=== PATIENT | male | born 1945 | race Caucasian/White ===

== ENCOUNTER 2017-09-19 11:13 | Observation (INO) | payer BC, MEDICARE, SELFPAY ==
[2017-09-19] VITALS (11 sets, daily range): BP systolic 134–183; BP diastolic 67–89; PULSE 71–99; RESP 16–19; TEMP 36.7–37.9; O2SAT 92–96; BMI 24.5; BMI 24.0; BMI 24.6
--- NOTE | 2017-09-19 11:31 | NURSING ---
NO OLD EKGS
--- NOTE | 2017-09-19 11:34 | CT_ITS ---
STUDY: CT BRAIN WITHOUT CONTRAST REASON FOR EXAM: Male, 72 years old. Syncope. Seizure like activity RADIATION DOSAGE (If Supplied By Facility): CTDIvol = ( 44.99 ) mGy, DLP = ( 779.24 ) mGycm TECHNIQUE: Transaxial CT imaging of the brain was performed without administration of intravenous contrast material. Individualized dose optimization techniques were used for this CT. COMPARISON: None. FINDINGS: Normal soft tissue structures. Normal calvarium. Normal size ventricles and extra-axial spaces for the patient's age. Normal white matter tracts of the cerebral hemispheres. Normal basal ganglia and thalami. Normal brainstem. Normal cerebellum. There is no intracranial hemorrhage. There are no findings of an acute ischemic infarction. Normal visualized paranasal sinuses. CT/Brain/Head without Contrast IMPRESSION: Normal unenhanced CT scan of the brain. Electronically Signed: Rashawn Mae MD at 12:26 EST , Service support ,
--- NOTE | 2017-09-19 11:34 | EKG12_ITS ---
Test Reason : SYNCOPE Blood Pressure : / mmHG Vent. Rate : 071 BPM Atrial Rate : 071 BPM P-R Int : 160 ms QRS Dur : 118 ms QT Int : 430 ms P-R-T Axes : 064 -67 009 degrees QTc Int : 467 ms Normal sinus rhythm Left anterior fascicular block Abnormal ECG Confirmed by MOO POWERS, GEM ([id number]), greeting card editor MARIBEL TYSON ([id number] on 09/22/2017 8:38:38 AM Referred By: Confirmed By:GEM CORTÉS MD
[2017-09-19 11:51] LABS: Absolute Lymphocyte Count 2.02 X10^3/ul (0.83-4.51); Absolute Neutrophil Count 5.6 X10^3/uL (2.0-7.7); Basophil# 0.03 X10^3/uL; Basophil% 0.3 % (0-1); Eosinophil# 0.05 X10^3/uL; Eosinophils% 0.6 % (0-5); Hematocrit 47.1 % (40-54); Hemoglobin 16.3 g/dl (13.0-16.5); Lymphocyte # 2.02 X10^3/ul (4.0); Lymphocyte % 22.3 % (19-41); Mean Corp Hgb Conc 34.6 g/gl (32-36); Mean Corpuscular Hgb 32.8 pg (27.0-32.0); Mean Corpuscular Volume 94.8 fL (80-94); Mean Platelet Vol. 8.5 fl (6.2-12.0); Monocyte# 1.33 X10^3/uL; Monocyte% 14.7 % (0-10); Neutrophil % 61.9 % (47-70); Platelet Count 235 K/mm3 (150-450); RBC Distribution Width CV 13.7 % (11.6-14.6); RBC Distribution Width SD 47.6 fl (35.1-43.9); Red Blood Count 4.97 M/mm3 (4.6-6.2); White Blood Count 9.1 K/mm3 (4.4-11.0)
[2017-09-19 11:54] LABS: POSITIVE COUNT NO; POSITIVE DIFFERENTIAL NO; POSITIVE MORPHOLOGY NO
[2017-09-19] MEDS: 0.9% Normal Saline 1,000 ML 1000 ML IV (11:59)
[2017-09-19 12:10] LABS: ALB/GLOB Ratio 0.9 RATIO (0.9-2.4); AST(SGOT) 25 U/L (15-37); Alanine Aminotransfer ALT/SGPT 29 U/L (16-61); Albumin, Serum 3.9 g/dL (3.2-5.0); Alkaline Phosphatase 85 U/L (45-117); Anion Gap 9 (5-15); BUN 8 mg/dL (7-18); BUN/Creat Ratio 11.6 RATIO (10-20); Calcium,Total 8.8 mg/dL (8.5-10.1); Chloride 100 mmol/L (98-107); Creatinine, Serum 0.69 mg/dL (0.70-1.30); EST Glomerular Filtration Rate 120 mL/min (>60); Est Glom Filt Rate - Afr Amer 146 mL/min (>60); Estimated Creatinine Clearance 63.35 ml/min; Globulin 4.2 g/dL (2.2-4.2); Glucose 101 mg/dL (74-106); Potassium 3.8 mmol/L (3.5-5.1); Protein, Total 8.1 g/dL (6.4-8.2); Sodium Level 137 mmol/L (136-145)
--- NOTE | 2017-09-19 12:13 | RAD_ITS ---
STUDY: X-RAY CHEST REASON FOR EXAM: Male, 72 years old. Syncope TECHNIQUE: PA and lateral views of the chest. COMPARISON: None. FINDINGS: There is hyperinflation of the lungs consistent with chronic obstructive lung disease (COPD). Right perihilar and lower lung infiltrates. There is no demonstrated pleural abnormality. Normal size heart. Normal mediastinum and jose. Normal visualized pulmonary arteries. Normal visualized aortic arch and descending thoracic aorta. There is demineralization of the osseous structures. Normal visualized ribs, clavicles, and shoulders. There is no demonstrated abnormality of the visualized soft tissue structures of the upper abdomen. RAD/Chest PA and Lateral IMPRESSION: Right lower lung infiltrate. Electronically Signed: Rashawn Mae MD at 13:20 EST , Service support ,
--- NOTE | 2017-09-19 13:09 | NURSING ---
PCU OBS AMS KITTOE
--- NOTE | 2017-09-19 13:14 | ED.DCSUM_ITS ---
- ER Visit Summary Date of Service: 09/19/17 Chief Complaint: Syncope History of Present Illness: The patient is a 72 M presents after a syncopal event. He states that he felt lightheaded and somewhat weak this morning on awakening. He and his were riding in the car to go to the [facility] in [place] when he made a groaning sound and then suddenly became unresponsive. His pulled over on the highway and called 911. He was unresponsive and had vomitus in his nares and on his shirt. He remained unresponsive for several minutes but then woke up and was not postictal. He returned almost immediately to baseline mental status and is feeling much better now except for slightly lightheaded. He states that he had a syncopal event approximately 15- 20 [place] ago [place] but denies any cardiac issues. He does take 3 different medications for hypertension including 100 mg of metoprolol twice daily. There have been no changes in his medication or recent illness. Physical Examination: Vitals are within normal limits. He is not in distress. Neck is supple. No meningeal findings. Heart tones are regular without murmur. Lungs are clear bilaterally. Abdomen is soft and nontender. No focal or lateralizing neuro findings. NIH is 0. Test Results: Laboratory studies here basically unremarkable. Troponin negative. Two-view chest x-ray interpreted independently by me is negative. EKG unremarkable. Emergency Department Course and Treatment: This sounds more like a syncopal event to me, he did not have actual seizure-like activity, just brief shaking immediately after the syncopal event but no full body seizure activity. His workup here is basically unremarkable but he is still feeling somewhat lightheaded. Treatment Plan: He will be admitted as observation to telemetry Disposition: Admit observation Impression: Initial encounter for acute syncopal event of uncertain etiology This note was generated with [employer] dictation software. It may contain incorrect words, spelling, and punctuation that were not noted in review of the chart prior to signing ED Disposition - Plan for ED Patient: Chief Complaint: Seizure Referrals: Ludin Ramachandran MD [Primary Care Provider] -
--- NOTE | 2017-09-19 14:18 | PCM.HP.STD ---
Problem List (1) Syncope and collapse Status: Acute (2) Essential (primary) hypertension Status: Chronic (3) Tobacco pipe smoker Status: Chronic History of Present Illness Date of Admission: 09/19/17 Chief Complaint: Passed out The patient is a 72 year old M with past medical history who was brought to the emergency department by the with a syncopal episode. Patient apparently experienced a syncopal episode was in the city route driver's seat per patient's patient became more responsive and collapsed episode lasted for about a minute. Patient's did notice some involuntary movement involving the upper extremity. Patient apparently did develop nausea and vomited ?1. Initial plan was for patient to have been sent to an emergency department in [place] however patient insisted on being driven home. Patient was seen by his PCP Dr. Ramachandran who directed family to the ED. Initial workup in the ED was unremarkable admitted to a monitored bed for subsequent management Past Medical History Past Medical History (Chronic Problems): Chronic Problems Essential (primary) hypertension (Chronic) Tobacco pipe smoker (Chronic) Allergies No Known Allergies Allergy (Verified 09/19/17 11:15) Home Medications: Ambulatory Orders Medication Instructions Recorded Amlodipine Besylate [Norvasc] 10 mg PO DAILY 09/19/17 Lisinopril/Hydrochlorothiazide 1 each PO DAILY 09/19/17 [Zestoretic 20-12.5 mg Tablet] Metoprolol Tartrate [Lopressor 100 mg PO BID 09/19/17 (Beta Eric)] Smoking Status: Current every day smoker - *Family History Maternal History Items: No pertinent history Review of Systems Constitutional: Denies: Anorexia, Chills, Fever, Night Sweats, Weight Change HEENT: Denies: Head Aches, Sinus Congestion, Sinus Drainage Cardiovascular: Reports: Syncope. Denies: Chest Pain, Orthopnea, Palpitations, Paroxysmal Noc. Dyspnea Respiratory: Denies: Cough, Shortness of breath at rest, Shortness of breath upon exertion, Sputum production Gastrointestinal: Denies: Abdominal Pain, Hematemesis, Hematochezia, Nausea, Melena, Vomiting Genitourinary: Denies: Dysuria, Frequency, Hematuria, Urgency Musculoskeletal: Denies: Joint Pain, Joint Tenderness Skin: Denies: Rash Neurological: Denies: Focal weakness, Numbness, Tingling Psychiatric: Denies: Homicidal Ideations, Suicidal Ideations Hematologic/ Lymphatic: Denies: Easy Bruising, Easy Bleeding VTE Information - Inpt Only VTE Present on Admission: No VTE Mechan Device Prophylaxis: Knee High SYLVIA Hose VTE Pharm Prophylaxis ordered?: Yes Patient Problems: Active and Suspected Problems Syncope and collapse (Acute) Objective: GENERAL: cooperative HEENT: Clear conjunctiva, NECK; supple, normal thyroid, n CHEST: Clear to auscultation bilaterally, HEART: Regular S1 S2, no audible murmurs ABDOMEN: soft, non-tender, normoactive bowel sounds, RECTAL: deferred EXTREMITIES: No edema, no clubbing, no cyanosis. POWERTRAIN ENGINEER: Awake, no lateralizing signs. SKIN: No rash - Physical Exam Vital Signs Temp Pulse Resp BP Pulse Ox 98.1 F 89 19 H 156/80 H 92 09/19/17 11:16 09/19/17 13:14 09/19/17 13:14 09/19/17 13:14 09/19/17 13:14 Oxygen Delivery Method Room Air Assessment/Plan Active and Suspected Problems Syncope and collapse (Acute) Patient is a 72-year-old gentleman presented with syncopal episode 1. Syncopal episode admitted to monitored bed for continuous telemetry monitoring as part of patient management ordered serial cardiac enzymes 2D echo. Also ordered MRI of the brain with and without contrast in view of reported seizure-like activity consultation placed to neurology 2. Hypertension-blood pressure controlled, home medications continued with dose adjustment as needed 3. Tobacco dependence (smokes pipe) counseled on cessation, offered nicotine patch for tobacco cravings 4. DVT prophylaxis SC Lovenox
--- NOTE | 2017-09-19 15:00 | NURSING ---
NIH complete with admission assessment though not ordered.
--- NOTE | 2017-09-19 15:03 | ECHOD_ITS ---
Reason For Study: HYPERTENSION Procedure This was a 2D Doppler, Color Flow transthoracic echocardiogram. Exam performed portable in patient room. Left Ventricle Normal LV size. Left ventricular systolic function is normal. The estimated ejection fraction is 60 %. No regional wall motion abnormalities noted. Right Ventricle Normal RV size. Normal systolic function. Atria Normal left atrium. Normal right atrium. Mitral Valve Normal mitral valve. There is mild mitral annular calcification. Tricuspid Valve Normal tricuspid valve. Aortic Valve Normal aortic valve. Trisinus/trileaflet aortic valve. Pulmonic Valve Normal pulmonic valve. Great Vessels Normal aortic root. The pulmonary artery is normal size. Normal inferior vena cava. Pericardium/Pleural No pericardial effusion. MMode/2D Measurements & Calculations LVIDd: 4.6 cm IVSd: 1.0 cm Ao root diam: 3.9 cm LVIDs: 3.1 cm LVPWd: 1.0 cm LA dimension: 3.4 cm RVDd: 2.9 cm FS: 32.1 % LAV(MOD-bp): 58.1 ml LA A4 area: 15.8 cm2 RA A4 area: 18.2 cm2 LAV(MOD-bp) Indexed: 32.2 ml/m2 LAV(MOD-sp2): 73.5 ml LAV(MOD-sp4): 37.4 ml Doppler Measurements & Calculations MV E max catrina: 71.4 cm/sec Ao V2 max: 118.8 cm/sec LV V1 max: 84.6 cm/sec MV A max catrina: 86.1 cm/sec Ao max P.6 mmHg LV V1 max P.9 mmHg MV E/A: 0.83 PA V2 max: 86.3 cm/sec Interpretation Summary Normal LV size. Left ventricular systolic function is normal. The estimated ejection fraction is 60 %. There is mild mitral annular calcification. Ordering Physician: Jordy Price Referring Physician: NAVARRO ROBERTS Performed By: Amparo Arevalo, CAMILLE, RVT
--- NOTE | 2017-09-19 15:03 | MRI_ITS ---
STUDY: MRI BRAIN WITH AND WITHOUT CONTRAST REASON FOR EXAM: Male, 72 years old. Seizure yesterday with brief loss of consciousness. TECHNIQUE: Standardized multiplanar fat and water weighted pulse sequences were obtained. 7 ml of Dotarem contrast material was administered intravenously for the contrast portion of the examination. COMPARISON: CT of the head dated September 19, 2017. FINDINGS: There is mild cerebral atrophy with widening of the extra-axial spaces and ventricular dilatation. There are a limited number of small white matter hyperintensities, distributed throughout the deep white matter tracts of the cerebral hemispheres, consistent with mild chronic white matter ischemic changes. There appear to be tiny foci of restricted diffusion within the posterior right frontal lobe and right parietal lobe possibly representing tiny acute infarcts. There may also be a small focus of restricted diffusion within the anterior right frontal lobe. This is best seen on diffusion weighted images #24, 23 and 21. Normal T2* images of the brain without demonstrated susceptibility artifact. There is no demonstrated hemosiderin stain. There are prominent perivascular spaces (PVS) involving the basal ganglia. Normal thalami. There is no extra-axial fluid accumulation. Normal flow voids within the major intracranial circulation suggesting patency by spin echo criteria. Normal venous enhancement. There is no enhancing intra-axial or extra-axial abnormality. Normal sella turcica, pituitary gland, infundibular stalk, optic chiasm and hypothalamus. Normal tectal plate and pineal gland. There are chronic white matter ischemic changes of the ben. The midbrain and medulla are otherwise normal. Normal cerebellum. There are large basal cisterns. Normal bilateral temporal bones. Normal bilateral internal auditory canals. There are bilateral ocular lens implants with otherwise normal intraorbital contents. There is mucoperiosteal inflammatory disease of the paranasal sinuses consistent with mild chronic sinusitis. Normal calvarium and skull base. Normal visualized soft tissue structures. There are degenerative changes of the anterior atlantoaxial articulation. MRI/Brain W/WO Contrast IMPRESSION: 1. Involutional changes of the brain, as described above. 2. Questionable tiny acute infarcts within the right frontal and parietal lobes. Electronically Signed: Shiloh Galicia MD at 15:26 EST , Service support ,
[2017-09-19 15:38] LABS: Magnesium 2.1 mg/dL (1.6-2.6)
[2017-09-19] MEDS: 0.9% Normal Saline 1,000 ML 75 ML IV (16:05)
[2017-09-19] MEDS: 0.9% NaCl Peripheral Flush Adult/Peds IV (17:00)
[2017-09-19] MEDS: 0.9% Normal Saline 1,000 ML 999 ML IV (17:25)
[2017-09-19 20:22] LABS: Alcohol, Blood (Medical)-Serum < 3.0 mg/dL
[2017-09-19 20:50] LABS: AST(SGOT) 26 U/L (15-37); Alanine Aminotransfer ALT/SGPT 28 U/L (16-61); Albumin, Serum 3.9 g/dL (3.2-5.0); Alkaline Phosphatase 85 U/L (45-117); Bilirubin, Direct 0.37 mg/dL (0.00-0.30); Globulin 4.2 g/dL (2.2-4.2); Protein, Total 8.1 g/dL (6.4-8.2)
[2017-09-19] MEDS: Metoprolol Tartrate 100 MG Tablet PO (21:22)
[2017-09-19] MEDS: HYDROCHLOROTHIAZIDE 12.5 MG CAPSULE PO (21:23)
[2017-09-19] MEDS: Enoxaparin 40 MG/0.4 ML Syringe SC (21:23)
[2017-09-19] MEDS: Lisinopril 20 MG Tablet PO (21:24)
[2017-09-20] VITALS (15 sets, daily range): BP systolic 121–160; BP diastolic 65–78; PULSE 65–86; RESP 16–18; TEMP 36.8–37.3; O2SAT 92–95; BMI 24.0
[2017-09-20 02:41] LABS: Hemoglobin 15.5 g/dl (13.0-16.5); Mean Corp Hgb Conc 34.4 g/gl (32-36); Mean Corpuscular Hgb 32.5 pg (27.0-32.0); Mean Corpuscular Volume 94.3 fL (80-94); Mean Platelet Vol. 8.5 fl (6.2-12.0); Platelet Count 244 K/mm3 (150-450); RBC Distribution Width CV 13.5 % (11.6-14.6); RBC Distribution Width SD 46.8 fl (35.1-43.9); Red Blood Count 4.77 M/mm3 (4.6-6.2); White Blood Count 11.4 K/mm3 (4.4-11.0)
[2017-09-20 02:42] LABS: Scan Indicated on CBC? Y/N NO
[2017-09-20 02:54] LABS: Anion Gap 8 (5-15); BUN 7 mg/dL (7-18); BUN/Creat Ratio 11.3 RATIO (10-20); Calcium,Total 8.2 mg/dL (8.5-10.1); Chloride 98 mmol/L (98-107); Creatinine, Serum 0.62 mg/dL (0.70-1.30); EST Glomerular Filtration Rate 136 mL/min (>60); Est Glom Filt Rate - Afr Amer 164 mL/min (>60); Estimated Creatinine Clearance 63.35 ml/min; Glucose 100 mg/dL (74-106); Potassium 3.1 mmol/L (3.5-5.1); Sodium Level 134 mmol/L (136-145)
[2017-09-20] MEDS: 0.9% Normal Saline 1,000 ML 75 ML IV ×2 (06:08→22:36)
[2017-09-20] MEDS: Metoprolol Tartrate 100 MG Tablet PO ×2 (08:40→22:37)
[2017-09-20] MEDS: Thiamine Hydrochloride 100 MG Tablet PO ×2 (08:40→18:00)
[2017-09-20] MEDS: amLODIPine 10 MG Tablet PO (08:40)
[2017-09-20] MEDS: Folic Acid 1 MG Tablet PO (08:41)
[2017-09-20] MEDS: Enoxaparin 40 MG/0.4 ML Syringe SC (08:41)
[2017-09-20] MEDS: Multivitamins,Ther W-Minerals Tablet 1 TABLET PO (08:41)
--- NOTE | 2017-09-20 12:29 | PCM.PROGNOTE ---
<Karen Ramires - Last Filed: 09/20/17 13:02> Patient Problems: Active and Suspected Problems Syncope and collapse (Acute) Syncope (Acute) Subjective: Patient seen and examined. Alert and oriented. Denies current complaints. Patient is anxious and states he wishes to go home as soon as possible. Discussed with patient recommendations for further testing. - Physical Exam General: Alert, Oriented x3, Cooperative, No apparent distress HEENT: Atraumatic, PERRLA, EOMI, Normocephalic Neck: Supple, No JVD, Negative Carotid Bruits Lungs: Clear to auscultation, Diminished Cardiovascular: Regular rate, Regular Rhythm, Normal S1, Normal S2, No murmurs Abdomen: Bowel Sounds Present, Soft, Non Tender Extremities: No clubbing, No cyanosis, No edema, Capillary Refill Less than 3 Seconds Skin: No rashes, No breakdown Musculoskeletal: No Tenderness to Palpation of Joints or Extremities Neurological: Cranial nerves II-XII grossly intact, Neuro grossly intact Psych/Mental Status: Normal Affect, Appropriate Vital Signs Temp Pulse Resp BP Pulse Ox 98.5 F 74 16 159/77 H 95 09/20/17 08:35 09/20/17 11:02 09/20/17 08:35 09/20/17 08:35 09/20/17 08:35 Oxygen Delivery Method Room Air Weight: 69.6 kg Body Mass Index (BMI) 24.0 Orthostatic Vital Signs Start: 09/19/17 17:03 Freq: q24h Status: Active Protocol: Activity Type Activity Date Activity User E-Sign Co-Sign Detail Recorded Client Recorded Date Recorded By Document 09/20/17 05:00 [facility] [id number] 09/20/17 05:19 [facility] 09/20/17 05:00 Orthostatic Vitals Standing -Blood Pressure (90/60-120/80) 121/68 H -Extremity Use Right Arm -Pulse Rate (60-100) 86 Sitting -Blood Pressure (90/60-120/80) 132/66 H -Extremity Use Right Arm -Pulse Rate (60-100) 83 Lying -Blood Pressure (90/60-120/80) 151/76 H -Extremity Use Right Arm -Pulse Rate (60-100) 79 Intake and Output for Last 24 Hours 09/18/17 09/19/17 09/20/17 23:59 23:59 23:59 Intake Total 1963 / 1963 1122 / 112 Balance 1962 Laboratory Tests Past 24 Hrs 09/19/17 09/19/17 09/19/17 17:10 19:05 19:05 WBC RBC Hgb Hct MCV MCH MCHC RDW RDW Differential Plt Count MPV Sodium Potassium Chloride Carbon Dioxide Anion Gap BUN Creatinine Estim Creat Clear Calc Est GFR (MDRD) Af Amer Est GFR (MDRD) Non-Af BUN/Creatinine Ratio Glucose Calcium Total Bilirubin Direct Bilirubin AST ALT Alkaline Phosphatase Troponin I < 0.02 < 0.02 Total Protein Albumin Globulin Ethyl Alcohol < 3.0 09/19/17 09/20/17 09/20/17 19:05 02:18 02:18 WBC 11.4 H RBC 4.77 Hgb 15.5 Hct 45.0 MCV 94.3 H MCH 32.5 H MCHC 34.4 RDW 13.5 RDW Differential 46.8 H Plt Count 244 MPV 8.5 Sodium 134 L Potassium 3.1 L Chloride 98 Carbon Dioxide 28.0 Anion Gap 8 BUN 7 Creatinine 0.62 L Estim Creat Clear Calc 63.35 Est GFR (MDRD) Af Amer 164 Est GFR (MDRD) Non-Af 136 BUN/Creatinine Ratio 11.3 Glucose 100 Calcium 8.2 L Total Bilirubin 1.50 H Direct Bilirubin 0.37 H AST 26 ALT 28 Alkaline Phosphatase 85 Troponin I Total Protein 8.1 Albumin 3.9 Globulin 4.2 Ethyl Alcohol 09/20/17 02:18 WBC RBC Hgb Hct MCV MCH MCHC RDW RDW Differential Plt Count MPV Sodium Potassium Chloride Carbon Dioxide Anion Gap BUN Creatinine Estim Creat Clear Calc Est GFR (MDRD) Af Amer Est GFR (MDRD) Non-Af BUN/Creatinine Ratio Glucose Calcium Total Bilirubin Direct Bilirubin AST ALT Alkaline Phosphatase Troponin I < 0.02 Total Protein Albumin Globulin Ethyl Alcohol Assessment/Plan Active and Suspected Problems Syncope and collapse (Acute) Syncope (Acute) Patient is a 72-year-old male admitted 09/19/17 due to syncopal episode. He has a past medical history of hypertension and tobacco use. 1. Syncope-echocardiogram pending. MRI pending. Neurology consulted given concern for seizure activity. Recommending EEG. Brain CT normal. Chest x-ray is read as right lower lobe infiltrate. Patient is afebrile, no cough or shortness of breath. No fever. Enzymes negative. Orthostatic vitals positive and patient received a liter fluid bolus. Recheck in a.m. 2. Hypertension-stable, continue current regimen. 3. Tobacco dependence-encourage smoking cessation. NR if desired. DVT prophylaxis-Lovenox SC This patient was seen by JE Yoon under the supervision of Dr. Price. <Jordy Price - Last Filed: 09/20/17 15:26> - Physical Exam Vital Signs Temp Pulse Resp BP Pulse Ox 98.3 F 76 16 134/67 H 94 09/20/17 14:00 09/20/17 14:00 09/20/17 14:00 09/20/17 14:00 09/20/17 14:00 Oxygen Delivery Method Room Air Weight: 69.6 kg Body Mass Index (BMI) 24.0 Orthostatic Vital Signs Start: 09/19/17 17:03 Freq: q24h Status: Active Protocol: Activity Type Activity Date Activity User E-Sign Co-Sign Detail Recorded Client Recorded Date Recorded By Document 09/20/17 05:00 [facility] [id number] 09/20/17 05:19 [facility] 09/20/17 05:00 Orthostatic Vitals Standing -Blood Pressure (90/60-120/80) 121/68 H -Extremity Use Right Arm -Pulse Rate (60-100) 86 Sitting -Blood Pressure (90/60-120/80) 132/66 H -Extremity Use Right Arm -Pulse Rate (60-100) 83 Lying -Blood Pressure (90/60-120/80) 151/76 H -Extremity Use Right Arm -Pulse Rate (60-100) 79 Intake and Output for Last 24 Hours 09/18/17 09/19/17 09/20/17 23:59 23:59 23:59 Intake Total 1962 1122 / 1122 Balance 1962 1122 / 1122 Laboratory Tests Past 24 Hrs 09/19/17 09/19/17 09/19/17 17:10 19:05 19:05 WBC RBC Hgb Hct MCV MCH MCHC RDW RDW Differential Plt Count MPV Sodium Potassium Chloride Carbon Dioxide Anion Gap BUN Creatinine Estim Creat Clear Calc Est GFR (MDRD) Af Amer Est GFR (MDRD) Non-Af BUN/Creatinine Ratio Glucose Calcium Total Bilirubin Direct Bilirubin AST ALT Alkaline Phosphatase Troponin I < 0.02 < 0.02 Total Protein Albumin Globulin Ethyl Alcohol < 3.0 09/19/17 09/20/17 09/20/17 19:05 02:18 02:18 WBC 11.4 H RBC 4.77 Hgb 15.5 Hct 45.0 MCV 94.3 H MCH 32.5 H MCHC 34.4 RDW 13.5 RDW Differential 46.8 H Plt Count 244 MPV 8.5 Sodium 134 L Potassium 3.1 L Chloride 98 Carbon Dioxide 28.0 Anion Gap 8 BUN 7 Creatinine 0.62 L Estim Creat Clear Calc 63.35 Est GFR (MDRD) Af Amer 164 Est GFR (MDRD) Non-Af 136 BUN/Creatinine Ratio 11.3 Glucose 100 Calcium 8.2 L Total Bilirubin 1.50 H Direct Bilirubin 0.37 H AST 26 ALT 28 Alkaline Phosphatase 85 Troponin I Total Protein 8.1 Albumin 3.9 Globulin 4.2 Ethyl Alcohol 09/20/17 02:18 WBC RBC Hgb Hct MCV MCH MCHC RDW RDW Differential Plt Count MPV Sodium Potassium Chloride Carbon Dioxide Anion Gap BUN Creatinine Estim Creat Clear Calc Est GFR (MDRD) Af Amer Est GFR (MDRD) Non-Af BUN/Creatinine Ratio Glucose Calcium Total Bilirubin Direct Bilirubin AST ALT Alkaline Phosphatase Troponin I < 0.02 Total Protein Albumin Globulin Ethyl Alcohol Assessment/Plan This patient was seen in conjunction with JE Yoon. I have independently interviewed and examined the patient and reviewed pertinent historical, laboratory, and other data. Please refer to JE Yoon note for details of this patient's presentation, findings, and recommendations. I have reviewed JE Yoon note and concur with documented findings. In brief, patient is a 72-year-old male presented after a syncopal episode with seizure-like activity Physical Examination: GENERAL: cooperative HEENT: Clear conjunctiva, NECK; supple, normal thyroid, CHEST: Diminished to auscultation bilaterally, HEART: Regular S1 S2, no audible murmurs ABDOMEN: soft, non-tender, normoactive bowel sounds, RECTAL: deferred UPPER AND BOTTOM LACER HAND: Awake, no lateralizing signs. SKIN: No lesions no erythema, Assessment: 1. Syncopal episode ; EEG and TTE in a.m. 2. Hypertension- 3. Tobacco dependence (smokes pipe) 4. DVT prophylaxis SC Lovenox Recommendations: 1. I have discussed the results of my overview and impressions with the patient 2. Options for management were reviewed Code Visit OBSV E&M: 28325 Subsequent observation care L3
--- NOTE | 2017-09-20 12:54 | PN_ITS ---
<Karen Ramires - Last Filed: 09/20/17 13:02> Patient Problems: Active and Suspected Problems Syncope and collapse (Acute) Syncope (Acute) Subjective: Patient seen and examined. Alert and oriented. Denies current complaints. Patient is anxious and states he wishes to go home as soon as possible. Discussed with patient recommendations for further testing. - Physical Exam General: Alert, Oriented x3, Cooperative, No apparent distress HEENT: Atraumatic, PERRLA, EOMI, Normocephalic Neck: Supple, No JVD, Negative Carotid Bruits Lungs: Clear to auscultation, Diminished Cardiovascular: Regular rate, Regular Rhythm, Normal S1, Normal S2, No murmurs Abdomen: Bowel Sounds Present, Soft, Non Tender Extremities: No clubbing, No cyanosis, No edema, Capillary Refill Less than 3 Seconds Skin: No rashes, No breakdown Musculoskeletal: No Tenderness to Palpation of Joints or Extremities Neurological: Cranial nerves II-XII grossly intact, Neuro grossly intact Psych/Mental Status: Normal Affect, Appropriate Vital Signs Temp Pulse Resp BP Pulse Ox 98.5 F 74 16 159/77 H 95 09/20/17 08:35 09/20/17 11:02 09/20/17 08:35 09/20/17 08:35 09/20/17 08:35 Oxygen Delivery Method Room Air Weight: 69.6 kg Body Mass Index (BMI) 24.0 Orthostatic Vital Signs Start: 09/19/17 17:03 Freq: q24h Status: Active Protocol: Activity Type Activity Date Activity User E-Sign Co-Sign Detail Recorded Client Recorded Date Recorded By Document 09/20/17 05:[address] [facility] [id number] 09/20/17 05:[address] [facility] 09/20/17 05:00 Orthostatic Vitals Standing -Blood Pressure (90/60-120/80) 121/68 H -Extremity Use Right Arm -Pulse Rate (60-100) 86 Sitting -Blood Pressure (90/60-120/80) 132/66 H -Extremity Use Right Arm -Pulse Rate (60-100) 83 Lying -Blood Pressure (90/60-120/80) 151/76 H -Extremity Use Right Arm -Pulse Rate (60-100) 79 Intake and Output for Last 24 Hours 09/18/17 09/19/17 09/20/17 23:59 23:59 23:59 Intake Total 1963 / 1963 1122 / 112 Balance 1962 Laboratory Tests Past 24 Hrs 09/19/17 09/19/17 09/19/17 17:10 19:05 19:05 WBC RBC Hgb Hct MCV MCH MCHC RDW RDW Differential Plt Count MPV Sodium Potassium Chloride Carbon Dioxide Anion Gap BUN Creatinine Estim Creat Clear Calc Est GFR (MDRD) Af Amer Est GFR (MDRD) Non-Af BUN/Creatinine Ratio Glucose Calcium Total Bilirubin Direct Bilirubin AST ALT Alkaline Phosphatase Troponin I < 0.02 < 0.02 Total Protein Albumin Globulin Ethyl Alcohol < 3.0 09/19/17 09/20/17 09/20/17 19:05 02:18 02:18 WBC 11.4 H RBC 4.77 Hgb 15.5 Hct 45.0 MCV 94.3 H MCH 32.5 H MCHC 34.4 RDW 13.5 RDW Differential 46.8 H Plt Count 244 MPV 8.5 Sodium 134 L Potassium 3.1 L Chloride 98 Carbon Dioxide 28.0 Anion Gap 8 BUN 7 Creatinine 0.62 L Estim Creat Clear Calc 63.35 Est GFR (MDRD) Af Amer 164 Est GFR (MDRD) Non-Af 136 BUN/Creatinine Ratio 11.3 Glucose 100 Calcium 8.2 L Total Bilirubin 1.50 H Direct Bilirubin 0.37 H AST 26 ALT 28 Alkaline Phosphatase 85 Troponin I Total Protein 8.1 Albumin 3.9 Globulin 4.2 Ethyl Alcohol 09/20/17 02:18 WBC RBC Hgb Hct MCV MCH MCHC RDW RDW Differential Plt Count MPV Sodium Potassium Chloride Carbon Dioxide Anion Gap BUN Creatinine Estim Creat Clear Calc Est GFR (MDRD) Af Amer Est GFR (MDRD) Non-Af BUN/Creatinine Ratio Glucose Calcium Total Bilirubin Direct Bilirubin AST ALT Alkaline Phosphatase Troponin I < 0.02 Total Protein Albumin Globulin Ethyl Alcohol Assessment/Plan Active and Suspected Problems Syncope and collapse (Acute) Syncope (Acute) Patient is a 72-year-old male admitted 09/19/17 due to syncopal episode. He has a past medical history of hypertension and tobacco use. 1. Syncope-echocardiogram pending. MRI pending. Neurology consulted given concern for seizure activity. Recommending EEG. Brain CT normal. Chest x-ray is read as right lower lobe infiltrate. Patient is afebrile, no cough or shortness of breath. No fever. Enzymes negative. Orthostatic vitals positive and patient received a liter fluid bolus. Recheck in a.m. 2. Hypertension-stable, continue current regimen. 3. Tobacco dependence-encourage smoking cessation. NR if desired. DVT prophylaxis-Lovenox SC This patient was seen by JE Yoon under the supervision of Dr. Price. <Jordy Price - Last Filed: 09/20/17 15:26> - Physical Exam Vital Signs Temp Pulse Resp BP Pulse Ox 98.3 F 76 16 134/67 H 94 09/20/17 14:00 09/20/17 14:00 09/20/17 14:00 09/20/17 14:00 09/20/17 14:00 Oxygen Delivery Method Room Air Weight: 69.6 kg Body Mass Index (BMI) 24.0 Orthostatic Vital Signs Start: 09/19/17 17:03 Freq: q24h Status: Active Protocol: Activity Type Activity Date Activity User E-Sign Co-Sign Detail Recorded Client Recorded Date Recorded By Document 09/20/17 05:[address] [facility] [id number] 09/20/17 05:[address] [facility] 09/20/17 05:00 Orthostatic Vitals Standing -Blood Pressure (90/60-120/80) 121/68 H -Extremity Use Right Arm -Pulse Rate (60-100) 86 Sitting -Blood Pressure (90/60-120/80) 132/66 H -Extremity Use Right Arm -Pulse Rate (60-100) 83 Lying -Blood Pressure (90/60-120/80) 151/76 H -Extremity Use Right Arm -Pulse Rate (60-100) 79 Intake and Output for Last 24 Hours 09/18/17 09/19/17 09/20/17 23:59 23:59 23:59 Intake Total 1962 1122 / 1122 Balance 1962 1122 / 1122 Laboratory Tests Past 24 Hrs 09/19/17 09/19/17 09/19/17 17:10 19:05 19:05 WBC RBC Hgb Hct MCV MCH MCHC RDW RDW Differential Plt Count MPV Sodium Potassium Chloride Carbon Dioxide Anion Gap BUN Creatinine Estim Creat Clear Calc Est GFR (MDRD) Af Amer Est GFR (MDRD) Non-Af BUN/Creatinine Ratio Glucose Calcium Total Bilirubin Direct Bilirubin AST ALT Alkaline Phosphatase Troponin I < 0.02 < 0.02 Total Protein Albumin Globulin Ethyl Alcohol < 3.0 09/19/17 09/20/17 09/20/17 19:05 02:18 02:18 WBC 11.4 H RBC 4.77 Hgb 15.5 Hct 45.0 MCV 94.3 H MCH 32.5 H MCHC 34.4 RDW 13.5 RDW Differential 46.8 H Plt Count 244 MPV 8.5 Sodium 134 L Potassium 3.1 L Chloride 98 Carbon Dioxide 28.0 Anion Gap 8 BUN 7 Creatinine 0.62 L Estim Creat Clear Calc 63.35 Est GFR (MDRD) Af Amer 164 Est GFR (MDRD) Non-Af 136 BUN/Creatinine Ratio 11.3 Glucose 100 Calcium 8.2 L Total Bilirubin 1.50 H Direct Bilirubin 0.37 H AST 26 ALT 28 Alkaline Phosphatase 85 Troponin I Total Protein 8.1 Albumin 3.9 Globulin 4.2 Ethyl Alcohol 09/20/17 02:18 WBC RBC Hgb Hct MCV MCH MCHC RDW RDW Differential Plt Count MPV Sodium Potassium Chloride Carbon Dioxide Anion Gap BUN Creatinine Estim Creat Clear Calc Est GFR (MDRD) Af Amer Est GFR (MDRD) Non-Af BUN/Creatinine Ratio Glucose Calcium Total Bilirubin Direct Bilirubin AST ALT Alkaline Phosphatase Troponin I < 0.02 Total Protein Albumin Globulin Ethyl Alcohol Assessment/Plan This patient was seen in conjunction with JE Yoon. I have independently interviewed and examined the patient and reviewed pertinent historical, laboratory, and other data. Please refer to JE Yoon note for details of this patient's presentation, findings, and recommendations. I have reviewed JE Yoon note and concur with documented findings. In brief, patient is a 72-year-old male presented after a syncopal episode with seizure-like activity Physical Examination: GENERAL: cooperative HEENT: Clear conjunctiva, NECK; supple, normal thyroid, CHEST: Diminished to auscultation bilaterally, HEART: Regular S1 S2, no audible murmurs ABDOMEN: soft, non-tender, normoactive bowel sounds, RECTAL: deferred OPERATIONS TRAINER: Awake, no lateralizing signs. SKIN: No lesions no erythema, Assessment: 1. Syncopal episode ; EEG and TTE in a.m. 2. Hypertension- 3. Tobacco dependence (smokes pipe) 4. DVT prophylaxis SC Lovenox Recommendations: 1. I have discussed the results of my overview and impressions with the patient 2. Options for management were reviewed Code Visit OBSV E&M: 73892 Subsequent observation care L3
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
[2017-09-20 17:14] LABS: Thyroid Stim Hormone (TSH) 1.21 uIU/mL (0.358-3.74)
[2017-09-20] MEDS: Aspirin 81 MG TAB.CHEW PO (18:13)
[2017-09-20] MEDS: Clopidogrel Bisulfate 75 MG Tablet PO (18:13)
[2017-09-20] MEDS: HYDROCHLOROTHIAZIDE 12.5 MG CAPSULE PO (22:36)
[2017-09-20] MEDS: Lisinopril 20 MG Tablet PO (22:37)
[2017-09-20] MEDS: Atorvastatin Calcium 80 MG Tablet PO (22:37)
[2017-09-21] VITALS (8 sets, daily range): BP systolic 121–156; BP diastolic 63–76; PULSE 67–86; RESP 16–18; TEMP 36.6–37; O2SAT 92–95; BMI 24.0
[2017-09-21 06:04] LABS: Hematocrit 46.5 % (40-54); Hemoglobin 16.2 g/dl (13.0-16.5); Mean Corp Hgb Conc 34.8 g/gl (32-36); Mean Corpuscular Hgb 32.5 pg (27.0-32.0); Mean Corpuscular Volume 93.2 fL (80-94); Mean Platelet Vol. 8.6 fl (6.2-12.0); Platelet Count 261 K/mm3 (150-450); RBC Distribution Width CV 13.7 % (11.6-14.6); RBC Distribution Width SD 45.4 fl (35.1-43.9); Red Blood Count 4.99 M/mm3 (4.6-6.2); White Blood Count 7.2 K/mm3 (4.4-11.0)
[2017-09-21 06:07] LABS: Scan Indicated on CBC? Y/N NO
[2017-09-21 06:18] LABS: Anion Gap 10 (5-15); BUN 9 mg/dL (7-18); BUN/Creat Ratio 15.1 RATIO (10-20); Calcium,Total 8.5 mg/dL (8.5-10.1); Chloride 96 mmol/L (98-107); Cholesterol 191 mg/dL (200); EST Glomerular Filtration Rate 142 mL/min (>60); Est Glom Filt Rate - Afr Amer 172 mL/min (>60); Estimated Creatinine Clearance 63.35 ml/min; Glucose 88 mg/dL (74-106); High Density Lipoprotein 79 mg/dL; Potassium 3.5 mmol/L (3.5-5.1); Sodium Level 131 mmol/L (136-145); Triglycerides 74 mg/dL; Very Low Density Lipoprotein 15 mg/dL (5-40)
--- NOTE | 2017-09-21 07:05 | MRI_ITS ---
STUDY: MRA OF THE HEAD WITHOUT CONTRAST REASON FOR EXAM: Male, 72 years old. cva, passed out 09/19/17 TECHNIQUE: 3-D [id number] (TOF) imaging was performed with MIPs. The study was performed unenhanced. COMPARISON: None. FINDINGS: Normal bilateral petrous carotid arteries. Normal right cavernous carotid artery with a normal supraclinoid bifurcation. Normal left cavernous carotid artery with a normal supraclinoid bifurcation. Normal right A1 segments of the anterior cerebral artery. Normal left A1 segments of the anterior cerebral artery. Normal intact anterior communicating artery (ACOM). Normal bilateral A2 segments of the anterior cerebral arteries. Normal right M1 and M2 segments of the middle cerebral arteries, with a normal M1 bifurcation. Normal left M1 and M2 segments of the middle cerebral arteries, with a normal M1 bifurcation. Normal right posterior communicating artery (PCOM). There is non-visualization of the left posterior communicating artery (PCOM). Normal bilateral vertebral arteries. Normal basilar artery with a normal basilar bifurcation. The visualized bilateral superior cerebellar (SCA) arteries are normal. Normal bilateral P1, P2 and visualized P3 segments of the posterior cerebral arteries. There is no demonstrated aneurysm of the [place] of [place]. There is no major vessel occlusion or hemodynamically significant stenosis. There is no demonstrated abnormality of the visualized brain. MRI/MRA Head ONLY without Contrast IMPRESSION: Normal MRA of the head Electronically Signed: Warren Stokes MD at 8:54 EST Tel , Service support ,
--- NOTE | 2017-09-21 07:05 | MRI_ITS ---
STUDY: MRA NECK WITH AND WITHOUT CONTRAST REASON FOR EXAM: Male, 72 years old. cva, passed out on 09/19/17 TECHNIQUE: 3-D [id number] (TOF) imaging was performed in an 1.5 T MRI scanner. 8 ml of Gadavist was administered for the contrast enhanced images. COMPARISON: None. FINDINGS: RIGHT CAROTID ARTERIES: Normal right common carotid artery (CCA). There is mild atherosclerotic plaque formation with minimal narrowing of the right carotid bulb. There is mild atherosclerotic plaque formation of the origin of the right internal carotid artery with less than 50% cross sectional diameter stenosis. Normal visualized cervical portion of the right internal carotid artery. Normal origin of the right external carotid artery (ECA). LEFT CAROTID ARTERIES: Normal left common carotid artery (CCA). There is mild atherosclerotic plaque formation with minimal narrowing of the left carotid bulb. There is mild atherosclerotic plaque formation of the origin of the left internal carotid artery with less than 50% cross sectional diameter stenosis. Normal visualized cervical portion of the left internal carotid artery. Normal origin of the left external carotid artery (ECA). VERTEBRAL ARTERIES: Normal antegrade flow within the bilateral vertebral artery without a hemodynamically significant stenosis. MRI/MRA Neck WITH and W/O Contrast IMPRESSION: No occlusion or significant stenosis. Mild atherosclerotic plaque Electronically Signed: Warren Stokes MD at 8:38 EST Tel , Service support ,
[2017-09-21 08:18] LABS: Hemoglobin A1c 5.3 % (4.2-6.3)
[2017-09-21] MEDS: Clopidogrel Bisulfate 75 MG Tablet PO (09:58)
[2017-09-21] MEDS: Aspirin 81 MG TAB.CHEW PO (09:58)
[2017-09-21] MEDS: Multivitamins,Ther W-Minerals Tablet 1 TABLET PO (09:58)
[2017-09-21] MEDS: Folic Acid 1 MG Tablet PO (09:58)
[2017-09-21] MEDS: Thiamine Hydrochloride 100 MG Tablet PO (09:58)
[2017-09-21] MEDS: amLODIPine 10 MG Tablet PO (09:58)
[2017-09-21] MEDS: Metoprolol Tartrate 100 MG Tablet PO (09:58)
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
--- NOTE | 2017-09-21 12:42 | CASEMGMT ---
This RN CM to room with FAY form at this time. FAY form explained and signed by pt at this time with at bedside. Original to chart and copy to pt at this time. Pt voices no further questions/concerns at this time. [place] TIARA FRANCOIS
--- NOTE | 2017-09-21 13:16 | PCM.DC ---
- Discharge Diagnoses Current Active Problems: Current Active and Chronic Problems Syncope and collapse (Acute) Essential (primary) hypertension (Chronic) Tobacco pipe smoker (Chronic) Syncope (Acute) You will use the following diet at home:: Cardiac Discharge Activity: Return to Normal Activity Call your doctor if you observe: Shortness of breath, Dizziness, Fainting spells, Chest pain, Increased palpitations (irregular heartbeat) Allergies/Adverse Reactions: Allergies No Known Allergies Allergy (Verified 09/19/17 11:15) Medications to take at Discharge Amlodipine Besylate [Norvasc] 10 mg PO DAILY 09/19/17 Lisinopril/Hydrochlorothiazide [Zestoretic 20-12.5 mg Tablet] 1 each PO QHS 09/19/17 Metoprolol Tartrate [Lopressor (beta allan)] 100 mg PO BID 09/19/17 Nicotine Polacrilex [Nicorette] 4 mg BC 09/19/17 Aspirin [Aspirin, Baby] 81 mg PO DAILY@0800 #30 tab.chew 09/21/17 Atorvastatin Calcium [Lipitor] 40 mg PO QHS #30 tab 09/21/17 The following prescriptions were given: Aspirin [Aspirin, Baby] 81 mg PO DAILY@0800 #30 tab.chew Atorvastatin Calcium [Lipitor] 40 mg PO QHS #30 tab Orders to be completed after discharge: 30-Day Event Recorder [[facility]] Location: None Selected Primary Care Physician: Ludin Ramachandran MD [Primary Care Provider] - Please follow up with your Primary Care Physician in: 1-2 Weeks Please Follow Up With: Leigh Ann Anders MD When: 6 Weeks Proposed Discharge Date: 09/21/17
--- NOTE | 2017-09-21 13:19 | PCM.DC.SUM ---
<Karen Ramires - Last Filed: 09/21/17 13:19> Discharge Date and Diagnosis Date of Admission: 09/19/17 Date of Discharge: 09/21/17 - Primary Discharge Diagnosis Active and Suspected Problems 1. Possible tiny acute infarcts right MCA 2. Syncope - Secondary Discharge Diagnosis Chronic Problems Essential (primary) hypertension (Chronic) Tobacco pipe smoker (Chronic) Hospital Course and Treatment Imaging Results: Diagnostic Data Brain CT 09/19/17 11:34 IMPRESSION: Normal unenhanced CT scan of the brain. Electronically Signed: Rashawn Mae MD at 12:26 EST , Service support , Chest X-Ray 09/19/17 12:13 IMPRESSION: Right lower lung infiltrate. Electronically Signed: Rashawn Mae MD at 13:20 EST , Service support , Brain MRI 09/19/17 15:03 IMPRESSION: 1. Involutional changes of the brain, as described above. 2. Questionable tiny acute infarcts within the right frontal and parietal lobes. Electronically Signed: Shiloh Galicia MD at 15:26 EST , Service support , Head MRA 09/21/17 07:05 IMPRESSION: Normal MRA of the head Electronically Signed: Warren Stokes MD at 8:54 EST Tel , Service support , Neck MRA 09/21/17 07:05 IMPRESSION: No occlusion or significant stenosis. Mild atherosclerotic plaque Electronically Signed: Warren Stokes MD at 8:38 EST Tel , Service support , Dr. Anders- Neurology Operations: None Procedures: 2-D Echocardiogram, Electroencephalogram Summary of Care Provided: Patient is a 72-year-old male admitted 09/19/17 due to syncopal episode. He has a past medical history of hypertension and tobacco use. 1. Possible tiny acute infarcts right MCA-patient presented with syncopal episode which is not suspected to be secondary to MRI findings. Echocardiogram showed an estimated ejection fraction of 60%. Brain CT normal. Neurology consulted. EEG pending and will be reviewed prior to discharge. Do not suspect seizure activity. Suspect syncopal episode secondary to dehydration. Orthostatic vitals positive, patient received normal saline. Patient will be discharged on aspirin, statin and 30 day event monitor. He will follow-up with neurology in 6 weeks. No arrhythmias noted on telemetry. Troponin negative. EKG without ST T changes. 2. Hypertension-stable, continue current regimen. 3. Tobacco dependence-encourage smoking cessation. General: Alert, Oriented x3, Cooperative, No apparent distress HEENT: Atraumatic, PERRLA, EOMI, Normocephali Neck: Supple, No JVD, Negative Carotid Bruits Lungs: Clear to auscultation, Diminished Cardiovascular: Regular rate, Regular Rhythm, Normal S1, Normal S2, No murmurs Abdomen: Bowel Sounds Present, Soft, Non Tender Extremities: No clubbing, No cyanosis, No edema, Capillary Refill Less than 3 Seconds Skin: No rashes, No breakdown Musculoskeletal: No Tenderness to Palpation of Joints or Extremities Neurological: Cranial nerves II-XII grossly intact, Neuro grossly intact Psych/Mental Status: Normal Affect, Appropriate Patient seen and examined prior to discharge. Physical assessment as noted above. Patient denies further dizziness, syncopal episodes. Neuro assessment grossly intact. Patient stable for discharge home with recommendations as noted above. This patient was seen by JE Yoon under the supervision of Dr. Wilson. Discharge Diet: Low fat/ Low Cholesterol Discharge Activity: Return to Normal Activity Call your doctor if you observe: Shortness of breath, Dizziness, Fainting spells, Chest pain, Increased palpitations (irregular heartbeat) Home Medications: Medications to take at Discharge Amlodipine Besylate [Norvasc] 10 mg PO DAILY 09/19/17 Lisinopril/Hydrochlorothiazide [Zestoretic 20-12.5 mg Tablet] 1 each PO QHS 09/19/17 Metoprolol Tartrate [Lopressor (beta allan)] 100 mg PO BID 09/19/17 Nicotine Polacrilex [Nicorette] 4 mg BC 09/19/17 Aspirin [Aspirin, Baby] 81 mg PO DAILY@0800 #30 tab.chew 09/21/17 Atorvastatin Calcium [Lipitor] 40 mg PO QHS #30 tab 09/21/17 Following Prescrptions Were Given to Patient: Aspirin [Aspirin, Baby] 81 mg PO DAILY@0800 #30 tab.chew Atorvastatin Calcium [Lipitor] 40 mg PO QHS #30 tab Other Amb Orders: 30-Day Event Recorder [[facility]] Location: None Selected Primary Care Physician: Ludin Ramachandran MD [Primary Care Provider] - Please follow up with your Primary Care Physician in: 1-2 Weeks Please Follow Up With: Leigh Ann Anders MD When: 6 Weeks Disposition: Home Minutes spent on discharge:: 35 Patient Condition:: Stable Meaningful Use Info Meaningful Use Diagnoses (Choose all that apply): Ischemic CVA - CVA Therapy Assessed for PT,OT and/or ST?: Yes - Ischemic Stroke Antithrombotic order at d/c?: Yes Dx of Atrial fib/flutter?: No Statins at discharge?: Yes Primary Dx Acute Ischemic CVA?: No IV tPA ordered during stay?: No Reason IV t-PA not ordered: Medical Contraindication <Alex Wilson E - Last Filed: 09/21/17 14:43> Discharge Date and Diagnosis - Secondary Discharge Diagnosis Chronic Problems Essential (primary) hypertension (Chronic) Tobacco pipe smoker (Chronic) Hospital Course and Treatment Imaging Results: 09/21/17 07:05 MRA Head ONLY without Contrast [MRI] Urgent MRA Neck WITH and W/O Contrast [MRI] Urgent Summary of Care Provided: Hospitalist note: Discharge summary above reviewed as well as physical examination and I agree with above treatment discharge plan. Patient was admitted for syncope. Syncopal event could be due to dehydration because patient orthostatic vitals were positive upon admission and he received IV fluids. CT scan brain showed no acute findings. MRI brain revealed questionable tiny acute infarcts within the right frontal and parietal lobes. MRA of the head and neck showed no evidence of hemodynamically significant vascular disease or stenosis. 2D echocardiogram showed normal LV size and function, ejection fraction of 60% and there was no significant valvular heart disease. Neurology consulted and recommended EEG which was done and pending at the time of discharge. At this time, seizure is doubtful. The syncopal event is unlikely to be due to the MRI findings with those questionable tiny infarcts. Patient's vital signs remained stable. He was treated with aspirin and statins. He has no focal deficit on physical examination. Patient discharged home in a stable medical condition, discharged on aspirin and statins, discharged on 30 day event monitor, recommended follow-up with PCP in 1-2 weeks and follow-up with neurology in 6 weeks. . Minutes spent on discharge:: 25 Code Visit OBSV E&M: 34032 Observation care discharge
--- NOTE | 2017-09-21 13:29 | DS.PCM_ITS ---
<Karen Ramires - Last Filed: 09/21/17 13:19> Discharge Date and Diagnosis Date of Admission: 09/19/17 Date of Discharge: 09/21/17 - Primary Discharge Diagnosis Active and Suspected Problems 1. Possible tiny acute infarcts right MCA 2. Syncope - Secondary Discharge Diagnosis Chronic Problems Essential (primary) hypertension (Chronic) Tobacco pipe smoker (Chronic) Hospital Course and Treatment Imaging Results: Diagnostic Data Brain CT 09/19/17 11:34 IMPRESSION: Normal unenhanced CT scan of the brain. Electronically Signed: Rashawn Mae MD at 12:26 EST , Service support , Chest X-Ray 09/19/17 12:13 IMPRESSION: Right lower lung infiltrate. Electronically Signed: Rashawn Mae MD at 13:20 EST , Service support , Brain MRI 09/19/17 15:03 IMPRESSION: 1. Involutional changes of the brain, as described above. 2. Questionable tiny acute infarcts within the right frontal and parietal lobes. Electronically Signed: Shiloh Galicia MD at 15:26 EST , Service support , Head MRA 09/21/17 07:05 IMPRESSION: Normal MRA of the head Electronically Signed: Warren Stokes MD at 8:54 EST Tel , Service support , Neck MRA 09/21/17 07:05 IMPRESSION: No occlusion or significant stenosis. Mild atherosclerotic plaque Electronically Signed: Warren Stokes MD at 8:38 EST Tel , Service support , Dr. Anders- Neurology Operations: None Procedures: 2-D Echocardiogram, Electroencephalogram Summary of Care Provided: Patient is a 72-year-old male admitted 09/19/17 due to syncopal episode. He has a past medical history of hypertension and tobacco use. 1. Possible tiny acute infarcts right MCA-patient presented with syncopal episode which is not suspected to be secondary to MRI findings. Echocardiogram showed an estimated ejection fraction of 60%. Brain CT normal. Neurology consulted. EEG pending and will be reviewed prior to discharge. Do not suspect seizure activity. Suspect syncopal episode secondary to dehydration. Orthostatic vitals positive, patient received normal saline. Patient will be discharged on aspirin, statin and 30 day event monitor. He will follow-up with neurology in 6 weeks. No arrhythmias noted on telemetry. Troponin negative. EKG without ST T changes. 2. Hypertension-stable, continue current regimen. 3. Tobacco dependence-encourage smoking cessation. General: Alert, Oriented x3, Cooperative, No apparent distress HEENT: Atraumatic, PERRLA, EOMI, Normocephali Neck: Supple, No JVD, Negative Carotid Bruits Lungs: Clear to auscultation, Diminished Cardiovascular: Regular rate, Regular Rhythm, Normal S1, Normal S2, No murmurs Abdomen: Bowel Sounds Present, Soft, Non Tender Extremities: No clubbing, No cyanosis, No edema, Capillary Refill Less than 3 Seconds Skin: No rashes, No breakdown Musculoskeletal: No Tenderness to Palpation of Joints or Extremities Neurological: Cranial nerves II-XII grossly intact, Neuro grossly intact Psych/Mental Status: Normal Affect, Appropriate Patient seen and examined prior to discharge. Physical assessment as noted above. Patient denies further dizziness, syncopal episodes. Neuro assessment grossly intact. Patient stable for discharge home with recommendations as noted above. This patient was seen by JE Yoon under the supervision of Dr. Wilson. Discharge Diet: Low fat/ Low Cholesterol Discharge Activity: Return to Normal Activity Call your doctor if you observe: Shortness of breath, Dizziness, Fainting spells , Chest pain, Increased palpitations (irregular heartbeat) Home Medications: Medications to take at Discharge Amlodipine Besylate [Norvasc] 10 mg PO DAILY 09/19/17 Lisinopril/Hydrochlorothiazide [Zestoretic 20-12.5 mg Tablet] 1 each PO QHS 11/01 Metoprolol Tartrate [Lopressor (beta allan)] 100 mg PO BID 09/19/17 Nicotine Polacrilex [Nicorette] 4 mg BC 09/19/17 Aspirin [Aspirin, Baby] 81 mg PO DAILY@0800 #30 tab.chew 09/21/17 Atorvastatin Calcium [Lipitor] 40 mg PO QHS #30 tab 09/21/17 Following Prescrptions Were Given to Patient: Aspirin [Aspirin, Baby] 81 mg PO DAILY@0800 #30 tab.chew Atorvastatin Calcium [Lipitor] 40 mg PO QHS #30 tab Other Amb Orders: 30-Day Event Recorder [[facility]] Location: None Selected Primary Care Physician: Ludin Ramachandran MD [Primary Care Provider] - Please follow up with your Primary Care Physician in: 1-2 Weeks Please Follow Up With: Leigh Ann Anders MD When: 6 Weeks Disposition: Home Minutes spent on discharge:: 35 Patient Condition:: Stable Meaningful Use Info Meaningful Use Diagnoses (Choose all that apply): Ischemic CVA - CVA Therapy Assessed for PT,OT and/or ST?: Yes - Ischemic Stroke Antithrombotic order at d/c?: Yes Dx of Atrial fib/flutter?: No Statins at discharge?: Yes Primary Dx Acute Ischemic CVA?: No IV tPA ordered during stay?: No Reason IV t-PA not ordered: Medical Contraindication <Alex Wilson E - Last Filed: 09/21/17 14:43> Discharge Date and Diagnosis - Secondary Discharge Diagnosis Chronic Problems Essential (primary) hypertension (Chronic) Tobacco pipe smoker (Chronic) Hospital Course and Treatment Imaging Results: 09/21/17 07:05 MRA Head ONLY without Contrast [MRI] Urgent MRA Neck WITH and W/O Contrast [MRI] Urgent Summary of Care Provided: Hospitalist note: Discharge summary above reviewed as well as physical examination and I agree with above treatment discharge plan. Patient was admitted for syncope. Syncopal event could be due to dehydration because patient orthostatic vitals were positive upon admission and he received IV fluids. CT scan brain showed no acute findings. MRI brain revealed questionable tiny acute infarcts within the right frontal and parietal lobes. MRA of the head and neck showed no evidence of hemodynamically significant vascular disease or stenosis. 2D echocardiogram showed normal LV size and function, ejection fraction of 60% and there was no significant valvular heart disease. Neurology consulted and recommended EEG which was done and pending at the time of discharge. At this time, seizure is doubtful. The syncopal event is unlikely to be due to the MRI findings with those questionable tiny infarcts. Patient's vital signs remained stable. He was treated with aspirin and statins. He has no focal deficit on physical examination. Patient discharged home in a stable medical condition, discharged on aspirin and statins, discharged on 30 day event monitor, recommended follow-up with PCP in 1-2 weeks and follow-up with neurology in 6 weeks. . Minutes spent on discharge:: 25 Code Visit OBSV E&M: 42148 Observation care discharge
--- NOTE | 2017-09-22 10:55 | EEG ---
- Electroencephalogram This is an 18 channel electroencephalogram performed on this 72-year-old male who experienced an episode of gagging followed by unresponsiveness and shaking followed by nausea and vomiting. 18 channel electroencephalogram is performed utilizing hyperventilation, photic stimulation, and EKG reference leads utilizing the International 10-20 electrode placement protocol. Background activity is 8 Hz symmetrically in the posterior leads which attenuates with eye opening. Hyperventilation is performed for 3 minutes with good effort with no lateralizing or epileptiform changes in the post hyperventilatory phase was unremarkable. The patient remained awake throughout the recording without lateralizing Repliform changes. EKG rhythm was normal sinus rhythm throughout the recording and photic stimulation generates a normal symmetric driving response in the posterior leads. Impression: Normal awake electroencephalogram.
== END 2017-09-21 13:17 | disposition home or self-care (01) ==
LOC: ED 13:39 → PCU 13:52
PROVIDERS: Nurse Practitioner Family; Admitting Provider Internal Medicine; Emergency Provider Emergency Medicine; Family Provider Family Medicine; PCP Family Medicine; Visit Provider Hospitalist
DX: R55 Syncope and collapse (principal); F17.290 Nicotine dependence, other tobacco product, uncomplicated; I10 Essential (primary) hypertension; Z79.899 Other long term (current) drug therapy
CPT/HCPCS: 36415; 70450; 70544; 70549; 70553; 71046; 80048; 80053; 80061; 80076; 80320; 83036; 83735; 84443; 84484; 85025; 85027; 93005; 93306; 95819; 96360; 96361; 96372; 99218; 99284; 99406; A9585; J7030; A4216; G0378; G0480

== ENCOUNTER 2018-02-20 17:22 | Observation (INO) | payer BC, MEDICARE, SELFPAY ==
[2018-02-20] VITALS (7 sets, daily range): BP systolic 103–161; BP diastolic 68–95; PULSE 74–86; RESP 16–26; TEMP 36.7–36.9; O2SAT 90–95; BMI 24.5; BMI 23.8
[2018-02-20 17:41] LABS: Bedside Glucose 101 mg/dL (70-110)
--- NOTE | 2018-02-20 17:46 | EKG12_ITS ---
Test Reason : NEURO Blood Pressure : / mmHG Vent. Rate : 075 BPM Atrial Rate : 075 BPM P-R Int : 174 ms QRS Dur : 126 ms QT Int : 416 ms P-R-T Axes : 080 -70 042 degrees QTc Int : 464 ms Normal sinus rhythm Left axis deviation Right bundle branch block Abnormal ECG Confirmed by MOO POWERS, GEM ([id number]), film and video editor MARIBEL TYSON ([id number] on 02/22/2018 3:28:14 PM Referred By: LULU/LILIAN Confirmed By:GEM CORTÉS MD
--- NOTE | 2018-02-20 17:46 | CT_ITS ---
STUDY: CT BRAIN WITHOUT CONTRAST REASON FOR EXAM: Male, 72 years old. Left facial droop, bilateral leg weakness, dizzy and fell off chair. Hx hypertension. RADIATION DOSAGE (If Supplied By Facility): CTDIvol = ( 44.99 ) mGy, DLP = ( 846.73 ) mGycm TECHNIQUE: Transaxial CT imaging of the brain was performed without administration of intravenous contrast material. COMPARISON: September 19, 2017 FINDINGS: Normal soft tissue structures. Normal calvarium. There are calcifications noted in the distal vertebral arteries. There are calcifications noted in the cavernous carotid arteries. This is consistent for atherosclerotic disease. There is mild cerebral atrophy with widening of the extra-axial spaces and ventricular dilatation. There are areas of decreased attenuation within the white matter tracts of the supratentorial brain, consistent with microvascular disease changes. Normal basal ganglia and thalami. Normal brainstem. There is mild cerebellar atrophy. There is no intracranial hemorrhage. There are no findings of an acute ischemic infarction. Normal visualized paranasal sinuses. CT/Brain/Head without Contrast IMPRESSION: Chronic involutional changes of the brain. There are no acute findings. Electronically Signed: Mateo Juarez MD at 18:43 EDT , Service support ,
[2018-02-20 18:03] LABS: Absolute Neutrophil Count 6.6 X10^3/uL (2.0-7.7); Basophil# 0.04 X10^3/uL; Basophil% 0.4 % (0-1); Eosinophil# 0.11 X10^3/uL; Eosinophils% 1.1 % (0-5); Hematocrit 45.2 % (40-54); Hemoglobin 15.8 g/dl (13.0-16.5); Mean Corpuscular Hgb 32.2 pg (27.0-32.0); Mean Corpuscular Volume 92.2 fL (80-94); Mean Platelet Vol. 8.6 fl (6.2-12.0); Monocyte# 1.38 X10^3/uL; Monocyte% 13.2 % (0-10); Neutrophil # 6.61 X10^3/uL (2.7-7.7); Neutrophil % 63.1 % (47-70); Platelet Count 261 K/mm3 (150-450); RBC Distribution Width CV 12.4 % (11.6-14.6); RBC Distribution Width SD 41.5 fl (35.1-43.9); White Blood Count 10.5 K/mm3 (4.4-11.0)
[2018-02-20 18:04] LABS: POSITIVE COUNT NO; POSITIVE DIFFERENTIAL NO; POSITIVE MORPHOLOGY NO
[2018-02-20 18:05] LABS: Prothrombin Time (Protime)PT. 12.7 SECONDS (11.7-14.9)
[2018-02-20 18:06] LABS: Partial Thromboplast Time 32.3 Seconds (24.1-36.2)
[2018-02-20 18:25] LABS: Anion Gap 9 (5-15); BUN 7 mg/dL (7-18); BUN/Creat Ratio 8.6 RATIO (10-20); Calcium,Total 8.5 mg/dL (8.5-10.1); Chloride 89 mmol/L (98-107); Creatinine, Serum 0.81 mg/dL (0.70-1.30); EST Glomerular Filtration Rate 99 mL/min (>60); Est Glom Filt Rate - Afr Amer 120 mL/min (>60); Glucose 79 mg/dL (74-106); Potassium 3.9 mmol/L (3.5-5.1); Sodium Level 125 mmol/L (136-145)
--- NOTE | 2018-02-20 18:32 | RAD_ITS ---
STUDY: X-RAY CHEST REASON FOR EXAM: Male, 72 years old. SYNCOPE TECHNIQUE: Single frontal view of the chest. COMPARISON: 09/19/2017 FINDINGS: Chronic appearing increased interstitial lung markings. The lung calvillo are hyperexpanded. There is no demonstrated pleural abnormality. Enlarged heart size. Normal mediastinum and jose. Normal visualized pulmonary arteries. There is atherosclerotic calcification of the aortic arch with tortuosity. There are diffuse degenerative changes of the visualized thoracic spine. There is degenerative osteoarthritis of the bilateral shoulders. There is no demonstrated abnormality of the visualized soft tissue structures of the upper abdomen. RAD/Chest 1 View IMPRESSION: There are no acute findings. Electronically Signed: Mateo Juarez MD at 18:54 EDT , Service support ,
--- OUTSIDE RECORDS SUMMARY | 2018-02-20 18:37 | XMS RPT_ITS ---
:1945 Author Organization [facility] Care Team Providers Name Role Phone ADAM GOLDSTEIN (RALPH) Attending Unavailable RO AMARAL Referring Unavailable ADAM GOLDSTEIN (RALPH) Attending Unavailable ADAM GOLDSTEIN (RALPH) Referring Unavailable ADAM GOLDSTEIN (RALPH) Attending Unavailable RO AMARAL Attending Unavailable RO AMARAL Referring Unavailable RO AMARAL Attending Unavailable RO AMARAL Referring Unavailable RO AMARAL Referring Unavailable Ro Amaral Primary Care Unavailable Milton Rocha Attending Unavailable Harris Nguyen Attending Unavailable Sandip Smith Attending Unavailable Jordy Price Referring Unavailable Alex Wilson Attending Unavailable Jordy Price Admitting Unavailable Elderbrock, Ro Primary Care Unavailable Chago, Leigh Ann S. Consulting Unavailable Alex Wilson Consulting Unavailable JE Yoon Attending Unavailable Elderbrock, Ro Primary Care Unavailable Kittoe, Jordy Admitting Unavailable Elderbrock, Ro Primary Care Unavailable Chago, Leigh Ann S. Consulting Unavailable Albert, Jordy Attending Unavailable Albert, Jordy Consulting Unavailable Albert, Jordy Admitting Unavailable Albert, Jordy Attending Unavailable Elderbrock, Ro Primary Care Unavailable Kittoe, Jordy Consulting Unavailable Elderbrock, Ro Primary Care Unavailable Kittoe, Jordy Admitting Unavailable Chago, Leigh Ann S. Consulting Unavailable Alex Wilson Attending Unavailable PROBLEMS PROBLEMS DATE TYPE CONDITION / CODE ATTENDING STATUS SOURCE 02/01/2018 Active Unknown / ADAM GOLDSTEIN Active [facility] UNK(Unknown) (SR. MEDIA MANAGER) [place] Repository 12/02/2017 Unknown R55 - Syncope and MoodispaHarris enciso Active [place] collapse / Community R55(ICD-10) Hospital Repository 02/23/2017 Active Encounter for Active [facility] screening for [place] other viral Repository diseases / Z11.59(ICD-10) 02/23/2017 Active Essential Active [facility] (primary) [place] hypertension / Repository I10(ICD-10) 02/23/2017 Active Encounter for Active [facility] screening for [facility] [place] lipoid disorders / Repository Z13.220(ICD-10) PROCEDURES PROCEDURES No Procedure Records FoundRESULTS RESULTS CBC W/DIFF, AUTOMATED Collected: 02/20/2018 Status: F Source: [place] [facility] TYPE CODE TESTS RESULT OUT OF RANGE REFERENCE UNITS LAB L100.1000 Normal 4.4-11.0 K/mm3 WBC 10.5 LAB L100.1200 Normal 4.6-6.2 M/mm3 RBC 4.90 LAB L100.1300 Normal 13.0-16.5 g/dl HGB 15.8 LAB L100.1400 Normal 40-54 % HCT 45.2 LAB L100.1500 Normal 80-94 fL MCV 92.2 LAB L100.1600 High 27.0-32.0 pg MCH 32.2 LAB L100.1700 Normal 32-36 g/gl MCHC 35.0 LAB L100.1810 Normal 11.6-14.6 % RDW 12.4 CV LAB L100.1820 Normal 35.1-43.9 fl RDW 41.5 SD LAB L100.1900 Normal 150-450 K/mm3 PLT 261 LAB L100.2000 Normal 6.2-12.0 fl MPV 8.6 LAB L100.2100 Normal 47-70 % NEUT% 63.1 LAB L100.2200 Normal 19-41 % LY% 22.0 LAB L100.2300 High 0-10 % MONO% 13.2 LAB L100.2400 Normal 0-5 % EO% 1.1 LAB L100.2500 Normal 0-1 % BASO% 0.4 LAB L100.2550 Normal 0.0-0.9 % IM 0.200 GRAN % Result Comment: IG% - Immature Granulocytes (promyelocytes, myelocytes andmetamyelocytes) > 1% indicates that a LEFT SHIFT is Present. LAB L100.2620 Normal 2.0-7.7 X10 3/uL Absolute Neut 6.6 LAB L100.2720 Normal 0.83-4.51 X10 3/ul Absolute Lymph 2.30 Performed By: #### L100.0100 ####[facility] [address] [place], [place], [phone] PROTHROMBIN TIME W/INR Collected: 02/20/2018 Status: F Source: [place] 5[place] [facility] CODE TESTS RESULT OUT OF RANGE REFERENCE UNITS LAB L300.4150 Normal 11.7-14.9 SECONDS PROTIME 12.7 LAB L300.4200 Normal INR 1.0 Performed By: #### L300.3900, L300.4310 ####[facility] [address] [place], [place], [id number] PARTIAL THROMBOPLAST Collected: 02/20/2018 Status: F Source: [place] 5:[place] [facility] [place] CODE TESTS RESULT OUT OF RANGE REFERENCE UNITS LAB L300.4310 Normal 24.1-36.2 Seconds PTT 32.3 Performed By: #### L300.3900, L300.4310 ####[facility] [address] [place], [address] BASIC METABOLIC Collected: 02/20/2018 Status: F Source: [place] PROFILE ([facility]) 5[facility] [place] [facility] [place] CODE TESTS RESULT OUT OF RANGE REFERENCE UNITS LAB L501.0100 Normal 74-106 mg/dL GLU 79 Result Comment: Please note revised GLUCOSE reference range kcafjsasp55/02/2018. LAB L501.1000 Normal 7-18 mg/dL BUN 7 LAB L501.1100 Normal 0.70-1.30 mg/dL CREAT,SERUM 0.81 Result Comment: The validity of the calculated GFR AND GFRAA in patients over70 years has not been determined. Clinical correlation isessential. LAB L501.1110 Normal >60 mL/min EST GFR 99 Result Comment: Non- GFR Calc LAB L501.1115 Normal >60 mL/min EST GFR - 120 AA Result Comment: GFR Calc LAB L501.1255 Normal ml/min Estimated 78.20 CRCL LAB L501.1300 Low 10-20 RATIO BUN/CRE 8.6 LAB L501.2200 Normal 8.5-10 mg/dL CA 8.5 .1 LAB L501.5300 Low 136-14 mmol/L NA 125 5 LAB L501.5600 Normal 3.5-5. mmol/L K 3.9 1 Result Comment: Moderate Hemolysis, Result may be falsely increased. LAB L501.5900 Low 98-107 mmol/L CL 89 LAB L501.6100 Normal 21.0-32.0 mmol/L CO2 27.0 LAB L501.6200 Normal 5-15 GAP 9 Performed By: #### L500.2500, L501.4010 ####[facility] [address] [place], [place], [address] TROPONIN-I Collected: 02/20/2018 Status: F Source: [place] 5:[place] [facility] [place] CODE TESTS RESULT OUT OF RANGE REFERENCE UNITS LAB L501.4010 Normal <0.045 ng/mL < TROPONIN-I 0.015 Result Comment: TROPONIN-I EXPECTED VALUES <0.045 Negative 0.045 - 0.590 Consistent with Cardiac Damage > OR = 0.600 Critical Value Not every elevated troponin is indicative of SC. Thesevalues should be used with clinical judgement in examiningthe patient's clinical picture for diagnosis. To establisha diagnosis of SC versus myocardial injury, there must be ademonstrated rise and/or fall in the troponin values, inaddition to ischemic symptoms, EKG changes, new regionalwall motion abnormality, and/or angiographical evidence. PLEASE NOTE: REFERENCE RANGES EDITED 17 Performed By: #### L500.2500, L501.4010 ####[facility] [address] [place], [address] BEDSIDE GLUCOSE Collected: 02/20/2018 Status: F Source: [place] 5:33 PM [facility] [place] CODE TESTS RESULT OUT OF RANGE REFERENCE UNITS LAB L501.080 Normal 70-110 mg/dL BEDSIDE 101 GLU Result Comment: MANAGEMENT OF PATIENT CARE PER NURSING PROTOCOL Performed By: #### L501.080 ####[facility] LaboratoryPoint [facility] [address] [place] [address] CNOV Observed: 02/16/2018 Status: COMPLETED Source: [place] 8:20 AM [facility] REPOSITORY Office Visit (FAMPWS) ---------[facility]URBIN ([id number]) 1945 [facility] Department02/16/18 8:20 AM ADAM GOLDSTEIN (RALPH) FAMPWS During your visit today, we recorded the following information about you: Pulse Blood pressure Weight 76/ minute 118/64 68.9 kgAdam Goldstein APRN.CNP 02/16/2018 8:51 AM SignedChief ComplaintPatient presents with:Recheck: lightheaded and passing out episodesHPIRiawilda Mitchellyuki is a 72 year old male who presents here today for AboveComplaints..Patient presents for follow up after being started on Lexapro 10 mg for anxietysymptoms. Also did have a syncopal episode last month during a vacation.After being started on the lexapro, did have two episodes of some dizziness,paleness. Blood pressure readings were low (90/55, 87/52) and metoprolol dosewas reduced from 100 mg twice daily to 50 mg twice daily. A NM stress test wasordered, but not yet scheduled. Patient is scheduled to see neurology forfollow up from his first episode of syncope approximately 6 months ago.Today, the patient is doing okay. His explains that his episodes havehappened in the morning. No syncope now. None since we have reduced hismetoprolol dose. He denies chest pain, shortness of breath, leg swelling orpalpitations. Does have some lightheadedness with abrupt position changes,quick movement of the head, that will resolve. Does have some feeling ofrubbery legs in the morning and when first rising. Does have some anxiety inthe morning or butterflies. He has been able to mow the grass, do yard workbut will forget to stay hydrated. Anxiety is slightly improved, but stilldaily. He is now going to start taking the lexapro 10 mg in the morning.Past medical history, appointments, medications, allergies reviewed.Previous Medical HistoryPAST MEDICAL HISTORYDiagnosis Date- Essential hypertension, benign- Internal hemorrhoids without mention of complicationPrevious Surgical HistoryPAST SURGICAL HISTORYProcedure Laterality Date- COLONOSCOP W/ OR W/O [facility] SPE[facility] 11/28/2005 Colonoscopy- COLONOSCOP W/ OR W/O [facility] 06/30/2016 ColonoscopyFamily HistoryFAMILY HISTORYProblem Relation Age of Onset- Diabetes Father- Coronary Artery Disease Father- Hypertension BrotherPatient AllergiesALLERGIESNo Known AllergiesCurrent MedicationsCurrent Outpatient Prescriptions on File Prior to Visit:metoprolol tartrate, short acting, (LOPRESSOR) 100 mg tablet Take 0.5 tabletsby mouth twice daily.escitalopram oxalate (LEXAPRO) 10 mg tablet Take 1 tablet by mouth once daily.amLODIPine (NORVASC) 10 mg tablet TAKE 1 TABLET EVERY DAYatorvastatin (LIPITOR) 40 mg tablet Take 1 tablet by mouth daily at bedtime.lisinopril (ZESTRIL, PRINIVIL) 20 mg tablet TAKE 1 TABLET BY MOUTH ONCE DAILY.Tadalafil (CIALIS) 10 mg tablet Take 1/2 - 1 tablet by mouth 1-2 hours prior tosexual activity as needed.No current facility -administered medications on file prior to visit.Social HistorySocial History Marital status: Spouse name: Marky Years of education: Number of children: 4Occupational HistoryOccupation Employer Comment [employer]*Social History Main Topics Smoking status: Former Smoker Packs/day: 0.50 Years: 0.00 Types: Cigarettes, Pipe Quit date: 08/22/2015 Smokeless tobacco: Never Used Comment: also a pipe Alcohol use: Yes Comment: 4 to 6 beers per dayREVIEW OF SYSTEMS: as above?Reviewed relevant PMHx, PSHx, Social Hx, current medications and allergies.EXAM:BP 118/64 Pulse 76 Wt 68.9 kg (152 lb) BMI 23.28 kg /m?General Appearance: Well appearing, alert, in no acute distress, well-hydrated,well nourished, Appearing less nervous then last encounter.Head: Normocephalic, no masses, lesions, tenderness or abnormalities.Eyes: Anicteric sclera. Pupils are equally round and reactive to light.Extraocular movements are intact. .Nose/Sinuses: Nares normal, septum midline, mucosa normal, no drainage or sinustenderness.Oropharynx: Lips, mucosa, and tongue normal, teeth and gums normal, oropharynxnormal.Neck: Supple, no adenopathy; thyroid symmetric, normal size, no bruits.Lungs: Lungs clear to auscultation. No wheezing, rhonchi, rales.Heart: RRR without murmur, gallop, or rubs. No ectopy.Extremities: No deformities, edema.Peripheral Pulses: Normal, Pulses: radial=4/4, dorsalis pedis=4/4, posteriortibial=4/4.Neurologic : Gait normal. Reflexes normal and symmetric. Sensation grosslyintact..Health Maintenance ListZOSTER VACCINE (SHINGRIX)(1 of 2) due on 1996DTAP,TDAP,TD(1 - Tdap) due on 03/09/2008INFLUENZA(1) due on DIABETES SCREEN due on 02/24/2020COLORECTAL CANCER SCREENING,SEE MODIFIER due on 1LIPID SCREEN due on 2ADULT PREVNAR-13 CompletedHEPATITIS C SCREENING CompletedPNEUMOVAX AGE 65 AND OVER WITH 5YR LOOKBACK CompletedData reviewedComponent Latest Ref Rng AND Units 2016Protein, Total 6.3 - 8.0 g/dL 7.3Albumin 3.9 - 4.9 g/dL 4.6Calcium 8.5 - 10.2 mg/dL 9.1Bilirubin, Total 0.2 - 1.3 mg/dL 0.9Alkaline Phosphatase 36 - 108 U/L 63AST 14 - 40 U/L 36Glucose 74 - 99 mg/dL 97BUN 9 - 24 mg/dL 7 (L)Creatinine 0.73 - 1.22 mg/dL 0.67 (L)Sodium 136 - 144 mmol/L 134 (L)Potassium 3.7 - 5.1 mmol/L 4.0Chloride 97 - 105 mmol/L 93 (L)CO2 22 - 30 mmol/L 25Anion Gap 9 - 18 mmol/L 16ALT 10 - 54 U/L 28eGFR- >60eGFR-All Other Races . >60Triglyceride 30 - 149 mg/dL 92Cholesterol, Total 100 - 199 mg/dL 196HDL Cholesterol >45 mg/dL 84VLDL Cholesterol 6 - 40 mg/dL 18LDL Cholesterol 60 - 129 mg/dL 94Fasting Time hrs 12TC:HDL Ratio 1.00 - 5.00 2.33LDL:HDL Ratio 0.50 - 3.55 1.12Non HDL Cholesterol 90 - 159 mg/dL 112Hep C Antibody IA Negative Negative ASSESSMENT/PLAN:1. Essential hypertension, benign - ICD9: 401.1, ICD10: I10 (primary diagnosis)- good control- Continue current medication(s)- Recommended regular aerobic exercise.- Recommend home blood pressure monitoring, to bring results in on next visit- Goal of BP <130/802. Syncope and collapse - ICD9: 780.2, ICD10 : R55- None since occurrence prior to reducing beta-allan dose. Advised plan tocontinue with neurology appointment in February, get stress testing completed afterappointment with neurology.3. LISA ( generalized anxiety disorder) - ICD9: 300.02, ICD10: F41.1- Slightly improving, we will try lexapro 10 mg in the morning. Still on theearly side of determining effectiveness of the medication.Patient will get labs completed, keep scheduled follow up with Dr. Amaralon February 25.Elder Herron APRN.CNP 02/16/2018 8:41 AM SignedPlease continue current medications. Try Lexapro in the morning. Follow upwith Dr. Amaral on 02/25. Continue follow up with neurology. Hold off onstress test for now until seen by neurology.Adam Goldstein APRN.CNPReferring Provider: ADAM GOLDSTEIN ([facility]) [[id number] ]Allergies As of Date: 02/16/2018(No Known Allergies)Date Reviewed: 02/16/2018Reviewed by: Adam Benson ) Robert - Fully AssessedReason for Visit: Recheck [92] Cmt: lightheaded and passing out episodesPrimary Visit Diagnosis:Essential hypertension, benign [I10] Other Visit Diagnoses:Syncope and collapse [R55] LISA (generalized anxiety disorder) [F41.1]Prescriptions as of Sig: METOPROLOL TARTRATE 100 MG TA* Take 0.5 tablets by mouth twi* ESCITALOPRAM 10 MG TABLET Take 1 tablet by mouth once d* AMLODIPINE 10 MG TABLET TAKE 1 TABLET EVERY DAY ATORVASTATIN 40 MG TABLET Take 1 tablet by mouth daily * LISINOPRIL 20 MG TABLET TAKE 1 TABLET BY MOUTH ONCE D* TADALAFIL 10 MG TABLET Take 1/2 - 1 tablet by mouth * Problem List As Of Date 02/16/2018 Noted Resolved Hemorrhage of rectum and anus [ K62.5] 07/24/2010 Benign neoplasm of colon [D12.6] INVALID FOR*03/2010 BENIGN HYPERTENSION [I10] INVALID FOR* BPH W/O URINARY OBS/ LUTS [N40.0] INVALID FOR* ABNORMAL LIVER FUNCTION STUDY [R94.5] INVALID FOR* Pulmonary embolism without acute cor pulmonale *INVALID FOR* Chronic obstructive pulmonary disease (HCC) [J4*INVALID FOR* Other instructions from your clinician: Please continue current medications. Try Lexapro in the morning. Follow up with Dr. Amaral on 02/25. Continue follow up with neurology. Hold off on stress test for now until seen by neurology. Adam Goldstein APRN.CNPDisposition: Return if symptoms worsen or fail to improve.Follow-up and Disposition History Recorded ---------Questionnaire: LISA-7 ANXIETY SCALEFeeling nervous, anxious, or on edge -> 2 Over half the daysNot being able to stop or control worrying -> 1 Several daysWorrying too much about different things -> 1 Several daysTrouble relaxing -> 3 Nearly every day Cmt: patient states he is relaxed , but has anxiety feelingsBeing so restless that it's hard to sit still -> 0 Not at all sureBeing easily annoyed or irritable -> 0 Not at all sureFeeling afraid as if something awful might happen -> 0 Not at all sureGAD-7 Anxiety Score -> 7If you checked off any problems, how difficult have these problems made it foryou to do your work, take care of things at home, or get along with otherpeople? -> Not difficult at allEnjohn d. [facility] Number: [id number] Status:Closed by ADAM GOLDSTEIN CNP on 02/16/18 PROGRESS Observed: 02/16/2018 Status: COMPLETED Source: [place] 8:19 AM [facility] REPOSITORY O ID: [id number]: Adam (Ralph) Arnaldoervice: (none) Author Type: Nurse PractitionerType: Progress NotesFiled: 02/16/2018 8:51 AMNote Text: Chief ComplaintPatient presents with:Recheck: lightheaded and passing out episodesHPMaggie Durbin is a 72 year old male who presents here today for AboveComplaints..Patient presents for follow up after being started on Lexapro 10 mg foranxiety symptoms. Also did have a syncopal episode last month during avacation. After being started on the lexapro, did have two episodes ofsome dizziness, paleness. Blood pressure readings were low (90/55, 87/52)and metoprolol dose was reduced from 100 mg twice daily to 50 mg twicedaily. A NM stress test was ordered, but not yet scheduled. Patient isscheduled to see neurology for follow up from his first episode of syncopeapproximately 6 months ago.Today, the patient is doing okay. His explains that his episodeshave happened in the morning. No syncope now. None since we have reducedhis metoprolol dose. He denies chest pain, shortness of breath, legswelling or palpitations. Does have some lightheadedness with abruptposition changes, quick movement of the head, that will resolve. Doeshave some feeling of rubbery legs in the morning and when first rising.Does have some anxiety in the morning or butterflies. He has been ableto mow the grass, do yard work but will forget to stay hydrated. Anxietyis slightly improved, but still daily. He is now going to start takingthe lexapro 10 mg in the morning.Past medical history, appointments, medications, allergies reviewed.Previous Medical HistoryPAST MEDICAL HISTORYDiagnosis Date- Essential hypertension, benign- Internal hemorrhoids without mention of complicationPrevious Surgical HistoryPAST SURGICAL HISTORYProcedure Laterality Date- COLONOSCOP W/ OR W/O [facility] 11/28/2005 Colonoscopy- COLONOSCOP W/ OR W/O [facility] 06/30/2016 ColonoscopyFamily HistoryFAMILY HISTORYProblem Relation Age of Onset- Diabetes Father- Coronary Artery Disease Father- Hypertension BrotherPatient AllergiesALLERGIESNo Known AllergiesCurrent MedicationsCurrent Outpatient Prescriptions on File Prior to Visit:metoprolol tartrate, short acting, (LOPRESSOR) 100 mg tablet Take 0.5tablets by mouth twice daily.escitalopram oxalate (LEXAPRO) 10 mg tablet Take 1 tablet by mouth oncedaily.amLODIPine (NORVASC) 10 mg tablet TAKE 1 TABLET EVERY DAYatorvastatin (LIPITOR) 40 mg tablet Take 1 tablet by mouth daily atbedtime.lisinopril (ZESTRIL, PRINIVIL) 20 mg tablet TAKE 1 TABLET BY MOUTH ONCEDAILY.Tadalafil (CIALIS) 10 mg tablet Take 1/2 - 1 tablet by mouth 1- 2 hoursprior to sexual activity as needed.No current facility-administered medications on file prior to visit.Social HistorySocial History Marital status: Spouse name: Marky Years of education: Number of children : 4Occupational HistoryOccupation Employer Comment [employer]*Social History Main Topics Smoking status: Former Smoker Packs/day: 0.50 Years: 0.00 Types: Cigarettes, Pipe Quit date: 08/22 Smokeless tobacco: Never Used Comment: also a pipe Alcohol use: Yes Comment: 4 to 6 beers per dayREVIEW OF SYSTEMS: as above?Reviewed relevant PMHx, PSHx, Social Hx, current medications andallergies.EXAM:BP 118/64 Pulse 76 Wt 68.9 kg ( 152 lb) BMI 23.28 kg/m?General Appearance: Well appearing, alert, in no acute distress,well-hydrated, well nourished, Appearing less nervous then lastencounter.Head: Normocephalic, no masses, lesions, tenderness or abnormalities.Eyes: Anicteric sclera. Pupils are equally round and reactive to light.Extraocular movements are intact. .Nose/Sinuses: Nares normal, septum midline, mucosa normal, no drainage orsinus tenderness.Oropharynx: Lips, mucosa, and tongue normal, teeth and gums normal,oropharynx normal.Neck: Supple, no adenopathy; thyroid symmetric, normal size, no bruits.Lungs: Lungs clear to auscultation. No wheezing, rhonchi, rales.Heart: RRR without murmur, gallop, or rubs. No ectopy.Extremities: No deformities, edema.Peripheral Pulses: Normal, Pulses: radial=4/4, dorsalis pedis=4/4,posterior tibial=4/4.Neurologic: Gait normal. Reflexes normal and symmetric. Sensation grosslyintact..Health Maintenance ListZOSTER VACCINE (SHINGRIX)(1 of 2) due on 1996DTAP,TDAP,TD(1 - Tdap) due on 03/09/2008INFLUENZA(1) due on 04/17/2018DIABETES SCREEN due on 2019COLORECTAL CANCER SCREENING,SEE MODIFIER due on 1LIPID SCREEN due on 2ADULT PREVNAR-13 CompletedHEPATITIS C SCREENING CompletedPNEUMOVAX AGE 65 AND OVER WITH 5YR LOOKBACK CompletedData reviewedComponent Latest Ref Rng AND Units 2016Protein, Total 6.3 - 8.0 g/dL 7.3Albumin 3.9 - 4.9 g/dL 4.6Calcium 8.5 - 10.2 mg/dL 9.1Bilirubin, Total 0.2 - 1.3 mg/dL 0.9Alkaline Phosphatase 36 - 108 U/L 63AST 14 - 40 U/L 36Glucose 74 - 99 mg/dL 97BUN 9 - 24 mg/dL 7 (L)Creatinine 0.73 - 1.22 mg/dL 0.67 (L)Sodium 136 - 144 mmol/L 134 (L)Potassium 3.7 - 5.1 mmol/L 4.0Chloride 97 - 105 mmol/L 93 (L)CO2 22 - 30 mmol/L 25Anion Gap 9 - 18 mmol/L 16ALT 10 - 54 U/L 28eGFR- >60eGFR-All Other Races . >60Triglyceride 30 - 149 mg/dL 92Cholesterol, Total 100 - 199 mg/dL 196HDL Cholesterol >45 mg/dL 84VLDL Cholesterol 6 - 40 mg/dL 18LDL Cholesterol 60 - 129 mg/dL 94Fasting Time hrs 12TC:HDL Ratio 1.00 - 5.00 2.33LDL:HDL Ratio 0.50 - 3.55 1.12Non HDL Cholesterol 90 - 159 mg/dL 112Hep C Antibody IA Negative Negative ASSESSMENT/PLAN:1. Essential hypertension, benign - ICD9: 401.1, ICD10: I10 (primarydiagnosis)- good control- Continue current medication(s)- Recommended regular aerobic exercise.- Recommend home blood pressure monitoring, to bring results in on nextvisit- Goal of BP <130/802. Syncope and collapse - ICD9: 780.2, ICD10: R55- None since occurrence prior to reducing beta-allan dose. Advisedplan to continue with neurology appointment in February, get stress testingcompleted after appointment with neurology.3. LISA (generalized anxiety disorder) - ICD9: 300.02, ICD10: F41.1- Slightly improving, we will try lexapro 10 mg in the morning. Still onthe early side of determining effectiveness of the medication.Patient will get labs completed, keep scheduled follow up with on February 25.Adam Goldstein APRN.CNP CNOV Observed: 02/01/2018 Status: COMPLETED Source: [place] 11:00 AM [facility] REPOSITORY Office Visit (FAMPWS) ---------BRENDANCHIP FINLEY ([id number]) 1945 MDate Time Provider Department02/01/18 11:00 AM ADAM GOLDSTEIN ([facility]) FAMPWS During your visit today, we recorded the following information about you: Temperature Pulse Blood pressure Weight 98.4 degrees 68/minute 138/68 69.9 kgAdam Goldstein APRN.CNP 02/01/2018 11:27 AM SignedChief ComplaintPatient presents with:AnxietyHPIRiannrd Natanael Durbin is a 72 year old male who presents here today for AboveComplaints.Patient presents to the office for complaints of increased anxiety. Statesthat he has never been really a relaxed person. States that he is a veryroutine oriented person that has anxiety when things are not in order. Hestates that when he was on his from vacation, had stopped to get breakfast, andhad a seizure like formation. He was in the office after this occurrence andwas sent to the ER. Testing came back normal. Did follow up with neurologyand cardiology, which cleared him and told him that nothing further was needed. Did have a 30 day heart monitor completed, which was normal. He states thatthe same exact occurrence occurred again on his way back from [place]. Had anepisode of vomiting, eyes rolling back into his head , diaphoresis. No bowel orbladder incontinence. Has never occurred again. Never has happened whenaround this area. Only with extended driving. Does have follow up in February withneurology to follow up. Since this occurrence, he has been stressed out,having anxiety. Sleep is fragmented, sleeping 4-5 hours at a time. Does wakeup early in the morning, around 4 am. Does has some difficulty with his mindrunning after he has woken. Has problems with fidgeting. Has never been onanything for anxiety or depression. Does not have any signs of depression. Isopen to starting a medication.Past medical history, appointments, medications, allergies reviewed.Previous Medical HistoryPAST MEDICAL HISTORYDiagnosis Date- Essential hypertension, benign- Internal hemorrhoids without mention of complicationPrevious Surgical HistoryPAST SURGICAL HISTORYProcedure Laterality Date- COLONOSCOP W/ OR W/O [facility] SPEC 11/28/2005 Colonoscopy- COLONOSCOP W/ OR W/O [facility] 06/30/2016 ColonoscopyFamily HistoryFAMILY HISTORYProblem Relation Age of Onset- Diabetes Father- Coronary Artery Disease Father- Hypertension BrotherPatient AllergiesALLERGIESNo Known AllergiesCurrent MedicationsCurrent Outpatient Prescriptions on File Prior to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 (rightfrontal and parietal) distribution, but final radiology read awaited-Recommend MRA head/neck-Recommend ASA 81 mg PO once daily and start Lipitor 40 mg PO q hs-Recommend LDL, Zsw3u-Wvtgtyzuo EEG-Recommend TTE-Recommend 30 day event recorder-GI/DVT prophylaxis-PT/OT-Fall precautions-Follow up with Neurology as outpatient in 6 weeks-Please call with questions if any-Thank you for allowing us to participate in patient's care and managementI spent 60 minutes taking history, doing physical examination, reviewing medical records,coordinating care and counseling the patient.Code VisitInpatient E AND M: 65200 Init Hosp L309/24/17 0830 <Electronically signed by Leigh Ann Anders MD>Date Leigh Ann Anders MDCosigner Signature ( if applicable): Date _CC: Guillermo Anders MD; Ro Amaral MD Signed ELECTROENCEPHALOGRAM Observed: 09/22/2017 Status: F Source: [place] 11:13 AM [facility] [place] [facility]/[address] [address]FQ#: [id number] Acct: [id number]: CHIP DURBIN Rep #: [id number]: 1945 72 From: Fredy Wang MDReferring Dr: Kaern Ramires, JEWELRY COATER-C Status: REG REFOrdering Dr: Date:Location: [facility] Sex: M C- ElectroencephalogramThis is an 18 channel electroencephalogram performed on this 72-year-old male who experiencedan episode of gagging followed by unresponsiveness and shaking followed by nausea and vomiting.18 channel electroencephalogram is performed utilizing hyperventilation, photic stimulation,and EKG reference leads utilizing the International 10-20 electrode placement protocol.Background activity is 8 Hz symmetrically in the posterior leads which attenuates with eyeopening. Hyperventilation is performed for 3 minutes with good effort with no lateralizing orepileptiform changes in the post hyperventilatory phase was unremarkable. The patient remainedawake throughout the recording without lateralizing Repliform changes. EKG rhythm was normalsinus rhythm throughout the recording and photic stimulation generates a normal symmetricdriving response in the posterior leads.Impression: Normal awake electroencephalogram.09/22/17 1101 <Electronically signed by Fredy Wang MD>Date Fredy Wang MDCC: Ro Amaral MD; Fredy Wang MD Date Dictated: 09/22/17 1055Date Transcribed: 09/22/17 105Transcriptionist: NFSigned 12 LEAD ELECTROCARDIOGRAM Observed: 09/22/2017 Status: F Source: [place] 8:38 AM [facility] [address] [place] [id number] Lead EKG009/19/17 1147MR#: [id number] Acct: [id number]: CHIP DURBIN Rep #: [id number]: 1945 72 From: Sandip Smith MDAttending Dr: Alex Wilson Status: DIS INOOrdering Dr: Efren Garcia MD Date: 09/19/17Location: PCU Sex: M CAdmitted: 09/19/17Test Reason : SYNCOPEBlood Pressure : / mmHGVent. Rate : 071 BPM Atrial Rate : 071 BPMP-R Int : 160 ms QRS Dur : 118 msQT Int : 430 ms P-R-T Axes : 064 -67 009 degreesQTc Int : 467 msNormal sinus rhythmLeft anterior fascicular blockAbnormal ECGConfirmed by SANDIP SMITH MD ([id number]), assignment editor MARIBEL TYSON ([id number]) on 09/22/2017 8:38:38 AMReferred By: Confirmed By:SANDIP SMITH MD09/22/17 0838Date Sandip Smith MDCC: Ibrahima Garcia MD; Ro Amaral MD Signed DISCHARGE SUMMARY Observed: 09/22/2017 Status: F Source: [place] 7:21 AM [facility] [place] [facility]Medical [facility] [address] [place] [address]Ffllgwwmw Smhjhkt76/05/18 1319MR#: [id number] Acct: [id number]: CHIP DURBIN Rep #: [id number]: 1945 72 From: Karen Ramires JEWELRY COATER-CPCP: Ro Amaral MD Status: DIS SHANEKA YLocation: PCU [id number]<Karen Ramires - Last Filed: 09/21/17 13:19>Discharge Date and DiagnosisDate of Admission: 09/19/17Date of Discharge: 09/21/17- Primary Discharge DiagnosisActive and Suspected Problems1. Possible tiny acute infarcts right MCA2. Syncope- Secondary Discharge DiagnosisChronic ProblemsEssential (primary) hypertension (Chronic)Tobacco pipe smoker (Chronic)Hospital Course and TreatmentImaging Results:Diagnostic DataBrain CT 09/19/17 11:34IMPRESSION:Normal unenhanced CT scan of the brain.Electronically Signed:Rashawn Mae MD at 12:26 ESTTel , Service support , Qdquc X-Ray 09/19/17 12:13IMPRESSION:Right lower lung infiltrate.Electronically Signed:Rashawn Mae MD at 13:20 ESTTel , Service support , Numgh MRI 09/19 15:03IMPRESSION:1. Involutional changes of the brain, as described above.2. Questionable tiny acute infarcts within the right frontal and parietallobes.Electronically Signed:Shilho Tyson MD at 15:26 ESTTel , Service support , Pmmm MRA 09/21/17 07:05IMPRESSION:Normal MRA of the headElectronically Signed:Warren Stokes MD at 8:54 ESTTel , Service support , Ijok MRA 09/21/17 07:05IMPRESSION:No occlusion or significant stenosis.Mild atherosclerotic plaqueElectronically Signed:Warren Stokes MD09/21 at 8:38 ESTTel , Service support , Fax Jisrrael Anders- NeurologyOperations: NoneProcedures: 2-D Echocardiogram, ElectroencephalogramSummary of Care Provided:Patient is a 72-year-old male admitted 09/19/17 due to syncopal episode. He has a past medicalhistory of hypertension and tobacco use.1. Possible tiny acute infarcts right MCA-patient presented with syncopal episode which is notsuspected to be secondary to MRI findings. Echocardiogram showed an estimated ejectionfraction of 60%. Brain CT normal. Neurology consulted. EEG pending and will be reviewedprior to discharge. Do not suspect seizure activity. Suspect syncopal episode secondary todehydration. Orthostatic vitals positive, patient received normal saline. Patient will bedischarged on aspirin, statin and 30 day event monitor. He will follow-up with neurology in 6weeks. No arrhythmias noted on telemetry. Troponin negative. EKG without ST T changes.2. Hypertension-stable, continue current regimen.3. Tobacco dependence-encourage smoking cessation.General: Alert, Oriented x3, Cooperative , No apparent distressHEENT: Atraumatic, PERRLA, EOMI, NormocephaliNeck: Supple, No JVD, Negative Carotid BruitsLungs: Clear to auscultation, DiminishedCardiovascular: Regular rate, Regular Rhythm, Normal S1, Normal S2, No murmursAbdomen: Bowel Sounds Present, Soft, Non TenderExtremities: No clubbing, No cyanosis, No edema, Capillary Refill Less than 3 SecondsSkin: No rashes, No breakdownMusculoskeletal: No Tenderness to Palpation of Joints or ExtremitiesNeurological: Cranial nerves II-XII grossly intact, Neuro grossly intactPsych/Mental Status: Normal Affect, AppropriatePatient seen and examined prior to discharge. Physical assessment as noted above. Patientdenies further dizziness, syncopal episodes. Neuro assessment grossly intact. Patient stablefor discharge home with recommendations as noted above.This patient was seen by JE Yoon under the supervision of Dr. Wilson.Discharge Diet: Low fat/ Low CholesterolDischarge Activity: Return to Normal ActivityCall your doctor if you observe: Shortness of breath, Dizziness, Fainting spells, Chest pain,Increased palpitations (irregular heartbeat)Home Medications:Medications to take at DischargeAmlodipine Besylate [Norvasc] 10 mg PO DAILY 09/19/17Lisinopril/Hydrochlorothiazide [Zestoretic 20-12.5 mg Tablet] 1 each PO QHS 09/19/17Metoprolol Tartrate [Lopressor (beta allan)] 100 mg PO BID Nicotine Polacrilex [Nicorette] 4 mg BC 09/19/17Aspirin [Aspirin, Baby] 81 mg PO DAILY@ 0800 #30 tab.chew 09/21/17Atorvastatin Calcium [Lipitor] 40 mg PO QHS #30 tab 09/21/17ollowing Prescrptions Were Given to Patient:Aspirin [Aspirin, Baby] 81 mg PO DAILY@0800 #30 tab.chewAtorvastatin Calcium [Lipitor] 40 mg PO QHS #30 tabOther Amb Orders:30-Day Event Recorder [[facility]] Location: None SelectedPrimary Care Physician:Ro Amaral MD [Primary Care Provider] -Please follow up with your Primary Care Physician in: 1-2 WeeksPlease Follow Up With: Leigh Ann Anders MDWhen: 6 WeeksDisposition: HomeMinutes spent on discharge:: 35Patient Condition:: StableMeaningful Use InfoMeaningful Use Diagnoses (Choose all that apply): Ischemic CVA- CVA TherapyAssessed for PT,OT and/or ST?: Yes- Ischemic StrokeAntithrombotic order at d/c?: YesDx of Atrial fib/flutter?: NoStatins at discharge?: YesPrimary Dx Acute Ischemic CVA?: NoIV tPA ordered during stay?: NoReason IV t-PA not ordered: Medical Contraindication<Alex Wilson E - Last Filed: 09/21/17 14:43>Discharge Date and Diagnosis- Secondary Discharge DiagnosisChronic ProblemsEssential (primary) hypertension (Chronic)Tobacco pipe smoker (Chronic)Hospital Course and TreatmentImaging Results:09/21/17 07:05MRA Head ONLY without Contrast [MRI] UrgentMRA Neck WITH and W/O Contrast [MRI] UrgentSummary of Care Provided:Hospitalist note:Discharge summary above reviewed as well as physical examination and I agree with abovetreatment discharge plan. Patient was admitted for syncope. Syncopal event could be due todehydration because patient orthostatic vitals were positive upon admission and he received IVfluids. CT scan brain showed no acute findings. MRI brain revealed questionable tiny acuteinfarcts within the right frontal and parietal lobes. MRA of the head and neck showed noevidence of hemodynamically significant vascular disease or stenosis. 2D echocardiogram showednormal LV size and function, ejection fraction of 60% and there was no significant valvularheart disease. Neurology consulted and recommended EEG which was done and pending at the timeof discharge. At this time, seizure is doubtful. The syncopal event is unlikely to be due tothe MRI findings with those questionable tiny infarcts. Patient's vital signs remained stable.He was treated with aspirin and statins. He has no focal deficit on physical examination.Patient discharged home in a stable medical condition, discharged on aspirin and statins,discharged on 30 day event monitor, recommended follow-up with PCP in 1 -2 weeks and follow-upwith neurology in 6 weeks..Minutes spent on discharge:: 25Code VisitOBSV E AND M: 49406 Observation care uslfycsxv80/06/18 0721 <Electronically signed by Karen WOOTEN>Date Karen Ramires NP-C009/21/17 1444<Electronically signed by Alex Wilson MD>Cosigner Signature (if applicable): Date Alex Wilson [facility] [place]: JE Ramires; Guillermo Anders MD; Alex Wilson; Ro Watson Signed DISCHARGE INSTRUCTION Observed: 09/21/2017 Status: F Source: [place] 1:19 PM [facility] [place] [address] [place], [place] [address]Ecvauunlkbsa for Home/Discharge Gkokwrnlgmug33/05/18 1316 #: [id number] Acct: [id number]: CHIP DURBIN Rep #: [id number]: 1945 72 From: Karen Ramires NP-CPCP: Ro Amaral MD Status: ADM SHANEKA- Discharge DiagnosesCurrent Active Problems:Current Active and Chronic ProblemsSyncope and collapse (Acute)Essential (primary) hypertension (Chronic)Tobacco pipe smoker (Chronic)Syncope (Acute)You will use the following diet at home:: CardiacDischarge Activity: Return to Normal ActivityCall your doctor if you observe: Shortness of breath, Dizziness, Fainting spells, Chest pain,Increased palpitations ( irregular heartbeat)Allergies/Adverse Reactions:AllergiesNo Known Allergies Allergy ( Verified 09/19/17 11:15)Medications to take at DischargeAmlodipine Besylate [Norvasc] 10 mg PO DAILY 09/19/17Lisinopril/Hydrochlorothiazide [Zestoretic 20-12.5 mg Tablet] 1 each PO QHS 09/19/17Metoprolol Tartrate [Lopressor (beta allan)] 100 mg PO BID 09/19/17Nicotine Polacrilex [Nicorette] 4 mg BC 09/19/17Aspirin [Aspirin, Baby ] 81 mg PO DAILY@0800 #30 tab.chew 09/21/17Atorvastatin Calcium [Lipitor] 40 mg PO QHS #30 tab 09/21/17The following prescriptions were given:Aspirin [Aspirin, Baby] 81 mg PO DAILY@0800 #30 tab.chewAtorvastatin Calcium [Lipitor] 40 mg PO QHS #30 tabOrders to be completed after discharge:30-Day Event Recorder [[facility]] Location: None [facility] Physician:Ro Amaral MD [Primary Care Provider] - Please follow up with your Primary Care Physician in: 1-2 WeeksPlease Follow Up With: Leigh Ann Anders MDWhen: 6 WeeksProposed Discharge Date: 09/21/180101/01 1319 <Electronically signed by Karen WOOTEN>Date Karen Ramires JEWELRY COATER-CCC: Guillermo Anders MD; Ro Amaral MD ECHOCARDIOGRAM COMPLETE Observed: 09/21/2017 Status: F Source: [place] 1:15 PM [facility] [place] [address] [address]Ogws Lffjlmkp30/05/18 0921MR#: [id number] Acct: [id number]: CHIP DURBIN Natanael Rep #: [id number]: 1945 72 From: Sandip Smith MDAttending Dr: Alex Wilson Status: ADM INOOrdering Dr: Jordy Price MD Date: Location: PCU Sex: M CAdmitted: 09/19/17Reason For Study: HYPERTENSIONProcedureThis was a 2D Doppler, Color Flow transthoracic echocardiogram. Exam performed portable inpatientroom.Left VentricleNormal LV size. Left ventricular systolic function is normal. The estimated ejection fractionis 60%. No regional wall motion abnormalities noted.Right VentricleNormal RV size. Normal systolic function.AtriaNormal left atrium. Normal right atrium.Mitral ValveNormal mitral valve. There is mild mitral annular calcification.Tricuspid ValveNormal tricuspid valve.Aortic ValveNormal aortic valve. Trisinus/trileaflet aortic valve.Pulmonic ValveNormal pulmonic valve.Great VesselsNormal aortic root. The pulmonary artery is normal size. Normal inferior vena cava.Pericardium/PleuralNo pericardial effusion.MMode/2D Measurements AND CalculationsLVIDd: 4.6 cm IVSd: 1.0 cm Ao root diam: 3.9 cmLVIDs: 3.1 cm LVPWd: 1.0 cm LA dimension: 3.4 cmRVDd: 2.9 cm FS: 32.1 % __LAV(MOD-bp): 58.1 ml LA A4 area: 15.8 cm2 RA A4 area: 18.2 cm2LAV(MOD-bp) Indexed: 32.2 ml/ m2LAV(MOD-sp2): 73.5 mlLAV(MOD-sp4): 37.4 mlDoppler Measurements AND CalculationsMV E max catrina: 71.4 cm/sec Ao V2 max: 118.8 cm/sec LV V1 max: 84.6 cm/secMV A max catrina: 86.1 cm/sec Ao max P.6 mmHg LV V1 max P.9 mmHgMV E/A: 0.83 PA V2 max: 86.3 cm/secInterpretation SummaryNormal LV size.Left ventricular systolic function is normal.The estimated ejection fraction is 60 %.There is mild mitral annular calcification. Ordering Physician: Jordy PriceReferrlae Physician: NAVARRO ROBERTSPerformed By: Amparo Arevalo RDCS, RVT 09/21/17 1315Date __ Sandip Smith MDCC: Jordy Price MD; Ro Amaral MD Date Dictated: 09/21/17 0921Date Transcribed: 09/21/17 1315Transcriptionist:Signed CBC-COMPLETE BLOOD CNT Collected: 09/21/2017 Status: F Source: [place] NO DIFF 5:35 AM [facility] [place] Order Comment: SPECIMEN OBTAINED FROM LINE DRAW TYPE CODE TESTS RESULT OUT OF RANGE REFERENCE UNITS LAB L100.1000 Normal 4.4-11.0 K/mm3 WBC 7.2 LAB L100.1200 Normal 4.6-6.2 M/mm3 RBC 4.99 LAB L100.1300 Normal 13.0-16.5 g/dl HGB 16.2 LAB L100.1400 Normal 40-54 % HCT 46.5 LAB L100.1500 Normal 80-94 fL MCV 93.2 LAB L100.1600 High 27.0-32.0 pg MCH 32.5 LAB L100.1700 Normal 32-36 g/gl MCHC 34.8 LAB L100.1810 Normal 11.6-14.6 % RDW 13.7 CV LAB L100.1820 High 35.1-43.9 fl RDW 45.4 SD LAB L100.1900 Normal 150-450 K/mm3 PLT 261 LAB L100.2000 Normal 6.2-12.0 fl MPV 8.6 Performed By: #### L100.0500 ####[facility] [address] [place], [place], [address] BASIC METABOLIC Collected: 09/21/2017 Status: F Source: [place] PROFILE (BMP) 5:35 AM [facility] [place] Order Comment: SPECIMEN OBTAINED FROM LINE DRAW TYPE CODE TESTS RESULT OUT OF RANGE REFERENCE UNITS LAB L501.0100 Normal 74-106 mg/dL GLU 88 LAB L501.1000 Normal 7-18 mg/dL BUN 9 LAB L501.1100 Low 0.70-1.30 mg/dL 0.60 CREAT,SERUM Result Comment: The validity of the calculated GFR AND GFRAA in patients over70 years has not been determined. Clinical correlation isessential. LAB L501.1110 Normal >60 mL/min EST GFR 142 Result Comment: Non- GFR Calc LAB L501.1115 Normal >60 mL/min EST GFR - 172 AA Result Comment: GFR Calc LAB L501.1255 Normal ml/min Estimated 63.35 CRCL LAB L501.1300 Normal 10-20 RATIO BUN/CRE 15.1 LAB L501.2200 Normal 8.5-10 mg/dL CA 8.5 .1 LAB L501.5300 Low 136-14 mmol/L NA 131 5 LAB L501.5600 Normal 3.5-5. mmol/L K 3.5 1 LAB L501.5900 Low 98-107 mmol/L CL 96 LAB L501.6100 Normal 21.0-3 mmol/L CO2 25.0 2.0 LAB L501.6200 Normal 5-15 GAP 10 Performed By: #### L500.2500, L500.4100 ####[facility] [address] [place], [place], [id number] LIPID PROFILE Collected: 09/21/2017 Status: F Source: [place] 5:35 AM [facility] Order Comment: SPECIMEN OBTAINED FROM LINE DRAW TYPE CODE TESTS RESULT OUT OF RANGE REFERENCE UNITS LAB L501.4900 Normal 200 mg/dL CHOL 191 Result Comment: <200 mg /dL Desirable 200-240 mg/dL Borderline >240 mg/dL High Risk LAB L501.5000 Normal mg/dL TRIG 74 Result Comment: The drugs N-Acetylcysteine and Metamizole may falselydepress this assay.Serum Triglycerides Reference Interval Normal <150 mg/dL Borderline high 150 - 199 mg/dL High 200 - 499 mg/dL Very High > or = 500 mg/dL LAB L501.6400 Normal mg/dL HDL 79 Result Comment: The drugs N-Acetylcysteine and Metamizole may falselydepress this assay. Reference Range HDL <40 mg/dL Low HDL Cholesterol HDL >or= 60 mg/dL High HDL Cholesterol LAB L501.6500 Normal 0-130 mg/dL LDL 97 LAB L501.6600 Normal 5-40 mg/dL VLDL 15 Performed By: #### L500.2500, L500.4100 ####[facility] [address] [place], [place], [id number] HEMOGLOBIN A1C Collected: 09/21/2017 Status: F Source: [place] 5:35 AM [facility] Order Comment: SPECIMEN OBTAINED FROM LINE DRAW TYPE CODE TESTS RESULT OUT OF RANGE REFERENCE UNITS LAB L501.9985 Normal 4.2-6.3 % HGB 5.3 A1C Performed By: #### L501.9985 ####[facility] [address], [address] MRA NECK WITH AND W/O Observed: 09/20/2017 Status: F Source: [place] CONTRAST 8:55 PM [facility]ITALImaging [address] [place], [place] [address]SLL Neck WITH and W/O ContrastMR#: [id number] Acct: [id number]: CHIP DURBIN Natanael Rep #: [id number]: 1945 M 72 From: Warren EarlybPCP: Ro Amaral MD Status: ADM INOStudy: MRA Neck WITH and W/O Contrast Date of Exam: 09/21/17Exam# [id number] Ordering Dr: Leigh Ann Anders MDSTUDY: MRA NECK WITH AND WITHOUT CONTRASTREASON FOR EXAM: Male, 72 years old. cva, passed out on 09/19/17TECHNIQUE: 3-D zlnm-zh-bklrpz (TOF) imaging was performed in an 1.5 T MRIscanner. 8 ml of Gadavist was administered for the contrast enhancedimages.COMPARISON: None. FINDINGS:RIGHT CAROTID ARTERIES:Normal right common carotid artery (CCA). There is mild atheroscleroticplaque formation with minimal narrowing of the right carotid bulb. Thereis mild atherosclerotic plaque formation of the origin of the rightinternal carotid artery with less than 50% cross sectional diameterstenosis. Normal visualized cervical portion of the right internal carotidartery.Normal origin of the right external carotid artery (ECA).LEFT CAROTID ARTERIES:Normal left common carotid artery (CCA). There is mild atheroscleroticplaque formation with minimal narrowing of the left carotid bulb. Thereis mild atherosclerotic plaque formation of the origin of the left internalcarotid artery with less than 50% cross sectional diameter stenosis.Normal visualized cervical portion of the left internal carotid artery.Normal origin of the left external carotid artery (ECA).VERTEBRAL ARTERIES:Normal antegrade flow within the bilateral vertebral artery without ahemodynamically significant stenosis. ORDER #: [id number] MRI/MRA Neck WITH and W/O ContrastIMPRESSION:No occlusion or significant stenosis.Mild atherosclerotic plaqueElectronically Signed:Warren Stokes MD at 8:38 ESTTel , Service support , FC: Guillermo Anders MD; Ro Amaral MD Glass Cleaning Machine Tender:Signed MRA HEAD ONLY WITHOUT Observed: 09/20/2017 Status: F Source: [place] CONTRAST 8:55 PM [facility] [address] [place] [address]LEE Head ONLY without ContrastMR#: [id number] Acct: [id number]: CHIP DURBIN Rep #: [id number]: 1945 M 72 From: Warren EarlybPCP: Madie POWERS,Ro Status: ADM INOStudy: MRA Head ONLY without Contrast Date of Exam: 09/21/17Exam# [id number] Ordering Dr: Leigh Ann Anders MDSTUDY: MRA OF THE HEAD WITHOUT CONTRASTREASON FOR EXAM: Male, 72 years old. cva, passed out 09/19/17TECHNIQUE: 3-D dhfb-pz-xireif ( TOF) imaging was performed with MIPs. Thestudy was performed unenhanced.COMPARISON: None. FINDINGS:Normal bilateral petrous carotid arteries. Normal right cavernous carotidartery with a normal supraclinoid bifurcation. Normal left cavernouscarotid artery with a normal supraclinoid bifurcation.Normal right A1 segments of the anterior cerebral artery. Normal left G0iyjajipd of the anterior cerebral artery. Normal intact anteriorcommunicating artery (ACOM). Normal bilateral A2 segments of the anteriorcerebral arteries.Normal right M1 and M2 segments of the middle cerebral arteries, with anormal M1 bifurcation. Normal left M1 and M2 segments of the middlecerebral arteries, with a normal M1 bifurcation.Normal right posterior communicating artery (PCOM). There isnon-visualization of the left posterior communicating artery (PCOM).Normal bilateral vertebral arteries. Normal basilar artery with a normalbasilar bifurcation. The visualized bilateral superior cerebellar (SCA)arteries are normal.Normal bilateral P1, P2 and visualized P3 segments of the posteriorcerebral arteries.There is no demonstrated aneurysm of the galena of Rai. There is nomajor vessel occlusion or hemodynamically significant stenosis. There isno demonstrated abnormality of the visualized brain. ORDER #: [id number] MRI/MRA Head ONLY without ContrastIMPRESSION:Normal MRA of the headElectronically Signed:Warren Stokes MD at 8:54 ESTTel , Service support , DU: Guillermo Anders MD; Ro Amaral MD Glass Cleaning Machine Tender:Signed TROPONIN-I Collected: 09/20/2017 Status: F Source: [place] 2:18 AM [facility] Order Comment: 'TROP' Serial specimen #1, #2, #3, or #4: 4 TYPE CODE TESTS RESULT OUT OF RANGE REFERENCE UNITS LAB L501.4010 Normal <0.06 ng/mL < TROPONIN-I 0.02 Result Comment: TROPONIN-I EXPECTED VALUES <0.05 NEGATIVE 0.06 - 0.59 AT RISK OF SC > OR = 0.60 SUGGEST SC Performed By: #### L501.4010 ####[facility] [address] [place], [place], [id number] CBC-COMPLETE BLOOD CNT Collected: 09/20/2017 Status: F Source: [place] NO DIFF 2:18 AM [facility] [place] TYPE CODE TESTS RESULT OUT OF RANGE REFERENCE UNITS LAB L100.1000 High 4.4-11.0 K/mm3 WBC 11.4 LAB L100.1200 Normal 4.6-6.2 M/mm3 RBC 4.77 LAB L100.1300 Normal 13.0-16.5 g/dl HGB 15.5 LAB L100.1400 Normal 40-54 % HCT 45.0 LAB L100.1500 High 80-94 fL MCV 94.3 LAB L100.1600 High 27.0-32.0 pg MCH 32.5 LAB L100.1700 Normal 32-36 g/gl MCHC 34.4 LAB L100.1810 Normal 11.6-14.6 % RDW 13.5 CV LAB L100.1820 High 35.1-43.9 fl RDW 46.8 SD LAB L100.1900 Normal 150-450 K/mm3 PLT 244 LAB L100.2000 Normal 6.2-12.0 fl MPV 8.5 Performed By: #### L100.0500 ####[facility] [address] [place], [address] BASIC METABOLIC Collected: 09/20/2017 Status: F Source: [place] PROFILE (BMP) 2:18 [place] [facility] [place] TYPE CODE TESTS RESULT OUT OF RANGE REFERENCE UNITS LAB L501.0100 Normal 74-106 mg/dL GLU 100 LAB L501.1000 Normal 7-18 mg/dL BUN 7 LAB L501.1100 Low 0.70-1.30 mg/dL 0.62 CREAT,SERUM Result Comment: The validity of the calculated GFR AND GFRAA in patients over70 years has not been determined. Clinical correlation isessential. LAB L501.1110 Normal >60 mL/min EST GFR 136 Result Comment: Non- GFR Calc LAB L501.1115 Normal >60 mL/min EST GFR - 164 AA Result Comment: GFR Calc LAB L501.1255 Normal ml/min Estimated 63.35 CRCL LAB L501.1300 Normal 10-20 RATIO BUN/CRE 11.3 LAB L501.2200 Low 8.5-10 mg/dL CA 8.2 .1 LAB L501.5300 Low 136-14 mmol/L NA 134 5 LAB L501.5600 Low 3.5-5. mmol/L K 3.1 1 LAB L501.5900 Normal 98-107 mmol/L CL 98 LAB L501.6100 Normal 21.0-3 mmol/L CO2 28.0 2.0 LAB L501.6200 Normal 5-15 GAP 8 Performed By: #### L500.2500 ####[facility] [address] [place], [place], [address] THYROID STIM HORMONE Collected: 09/20/2017 Status: F Source: LOC (TSH) 2:18 AM [facility] [place] TYPE CODE TESTS RESULT OUT OF RANGE REFERENCE UNITS LAB L501.9520 Normal 0.358-3.74 uIU/mL TSH 1.21 Performed By: #### L501.9520 ####[facility] [address] [place], [place], [address] ALCOHOL, BLOOD Collected: 09/19/2017 Status: F Source: LOC (MEDICAL)-SERUM 7:05 PM [facility] [place] TYPE CODE TESTS RESULT OUT OF RANGE REFERENCE UNITS LAB L501.9100 Normal mg/dL SERUM < ETOH 3.0 Result Comment: The serum:whole blood ethanol ratio is approximately 1.14and varies slightly with hematocrit.Medical Alcohol reference interval and critical value innon-tolerant individuals; 50 - 100 Impairment 100 Intoxication 100 - 250 Severe Poisoning 250 - 400 Deep/possible fatal coma Performed By: #### L501.9100 ####[facility] [address] [place], [place], [id number] LIVER PROFILE Collected: 09/19/2017 Status: F Source: LOC 7:05 PM [facility] [place] TYPE CODE TESTS RESULT OUT OF RANGE REFERENCE UNITS LAB L501.1500 Normal 6.4-8.2 g/dL T 8.1 PROT LAB L501.1800 Normal 3.2-5.0 g/dL ALB 3.9 LAB L501.1950 Normal 2.2-4.2 g/dL GLOB 4.2 LAB L501.4100 Normal 15-37 U/L AST 26 LAB L501.4305 Normal 45-117 U/L ALK P 85 LAB L501.4405 Normal 16-61 U/L ALT 28 Result Comment: Please note revised ALT reference range fmfrwhesu56/28/2018. LAB L501.4600 High 0.20-1.00 mg/dL T BILI 1.50 LAB L501.4700 High 0.00-0.30 mg/dL D BILI 0.37 Performed By: #### L500.3400 ####[facility] [address] [place], [address] TROPONIN-I Collected: 09/19/2017 Status: F Source: [place] 5:10 PM [facility] [place] Order Comment: 'TROP' Serial specimen #1, #2, #3, or #4: 2 TYPE CODE TESTS RESULT OUT OF RANGE REFERENCE UNITS LAB L501.4010 Normal <0.06 ng/mL < TROPONIN-I 0.02 Result Comment: TROPONIN-I EXPECTED VALUES <0.05 NEGATIVE 0.06 - 0.59 AT RISK OF SC > OR = 0.60 SUGGEST SC Performed By: #### L501.4010 ####[facility] [address] [place], [address] BRAIN W/WO CONTRAST Observed: 09/19/2017 Status: F Source: [place] 3:04 PM [facility] [facility] [facility] [address] [place], [place] [address]Ppmsy W/WO ContrastMR#: [id number] Acct: [id number]: CHIP DURBIN Rep #: [id number]: 1945 M 72 From: Shiloh Tyson MDPCP: Ro Amaral MD Status: ADM INOStudy: Brain W/WO Contrast Date of Exam: 09/19/17Exam# [id number] Ordering Dr: Jordy Price MDSTUDY: MRI BRAIN WITH AND WITHOUT CONTRASTREASON FOR EXAM: Male, 72 years old. Seizure yesterday with brief lossof consciousness.TECHNIQUE: Standardized multiplanar fat and water weighted pulsesequences were obtained. 7 ml of Dotarem contrast material wasadministered intravenously for the contrast portion of the examination.COMPARISON: CT of the head dated September 19, 2017. FINDINGS:There is mild cerebral atrophy with widening of the extra-axial spaces andventricular dilatation. There are a limited number of small white matterhyperintensities, distributed throughout the deep white matter tracts ofthe cerebral hemispheres, consistent with mild chronic white matterischemic changes.There appear to be tiny foci of restricted diffusion within the posteriorright frontal lobe and right parietal lobe possibly representing tiny acuteinfarcts. There may also be a small focus of restricted diffusion withinthe anterior right frontal lobe. This is best seen on diffusion weightedimages #24 , 23 and 21.Normal T2* images of the brain without demonstrated susceptibilityartifact. There is no demonstrated hemosiderin stain.There are prominent perivascular spaces (PVS) involving the basal ganglia.Normal thalami. There is no extra-axial fluid accumulation.Normal flow voids within the major intracranial circulation suggestingpatency by spin echo criteria. Normal venous enhancement. There is noenhancing intra-axial or extra-axial abnormality.Normal sella turcica, pituitary gland, infundibular stalk, optic chiasm andhypothalamus. Normal tectal plate and pineal gland.There are chronic white matter ischemic changes of the ben. The midbrainand medulla are otherwise normal. Normal cerebellum. There are largebasal cisterns. Normal bilateral temporal bones. Normal bilateralinternal auditory canals.There are bilateral ocular lens implants with otherwise normal intraorbitalcontents. There is mucoperiosteal inflammatory disease of the paranasalsinuses consistent with mild chronic sinusitis. Normal calvarium and skullbase. Normal visualized soft tissue structures. There are degenerativechanges of the anterior atlantoaxial articulation. MRI/Brain W/WO ContrastIMPRESSION:1. Involutional changes of the brain, as described above.2. Questionable tiny acute infarcts within the right frontal and parietallobes.Electronically Signed:Shiloh Tyson MD at 15:26 ESTTel , Service support , IQ: Jordy Price MD ; Ro Amaral MD Glass Cleaning Machine Tender:Signed HISTORY AND PHYSICAL Observed: 09/19/2017 Status: F Source: [place] EXAM 2:39 PM [facility] [place] [facility] [address] [place], [place] [address]Boam[place] and Ufvkmbrl14/03/18 1418#: [id number] Acct: [id number]: CHIP DURBIN Rep #: [id number]: 1945 72 From: Jordy Price MDPCP: Madie POWERS,Ro Status: ADM SHANEKA YLocation: [facility] [id number] List(1) Syncope and collapseStatus: Acute(2) Essential (primary) hypertensionStatus: Chronic(3) Tobacco pipe smokerStatus: ChronicHistory of Present IllnessDate of Admission: Chief Complaint: Passed outThe patient is a 72 year old M with past medical history who was brought to the emergencydepartment by the with a syncopal episode. Patient apparently experienced a syncopalepisode was in the patrol driver's seat per patient' s patient became more responsive andcollapsed episode lasted for about a minute. Patient's did notice some involuntarymovement involving the upper extremity. Patient apparently did develop nausea and vomited 1.Initial plan was for patient to have [place] sent [place] an [place]patient insisted on being driven home. Patient was seen by his PCP Dr. Amaral who directedfamily to the ED. Initial workup in the ED was unremarkable admitted to a monitored bed forsubsequent managementPast Medical HistoryPast Medical History (Chronic Problems):Chronic ProblemsEssential (primary) hypertension (Chronic)Tobacco pipe smoker (Chronic)AllergiesNo Known Allergies Allergy (Verified 09/19/17 11:15) Home Medications:Ambulatory OrdersMedication Instructions RecordedAmlodipine Besylate [Norvasc] 10 mg PO DAILY 09/19/17moking Status: Current every day smoker- *Family History MaternalHistory Items: No pertinent historyReview of SystemsConstitutional: Denies: Anorexia, Chills, Fever, Night Sweats, Weight ChangeHEENT: Denies: Head Aches, Sinus Congestion, Sinus DrainageCardiovascular : Reports: Syncope. Denies: Chest Pain, Orthopnea, Palpitations, Paroxysmal Noc.DyspneaRespiratory: Denies: Cough, Shortness of breath at rest, Shortness of breath upon exertion,Sputum productionGastrointestinal: Denies: Abdominal Pain, Hematemesis, Hematochezia, Nausea, Melena, VomitingGenitourinary: Denies: Dysuria, Frequency, Hematuria, UrgencyMusculoskeletal: Denies: Joint Pain, Joint TendernessSkin: Denies: RashNeurological: Denies: Focal weakness, Numbness, TinglingPsychiatric: Denies: Homicidal Ideations, Suicidal IdeationsHematologic / Lymphatic: Denies: Easy Bruising, Easy BleedingVTE Information - Inpt OnlyVTE Present on Admission: NoVTE Mechan Device Prophylaxis: Knee High SYLVIA HoseVTE Pharm Prophylaxis ordered?: YesPatient Problems:Active and Suspected ProblemsSyncope and collapse (Acute)Objective:GENERAL: cooperativeHEENT: Clear conjunctiva,NECK; supple, normal thyroid, nCHEST: Clear to auscultation bilaterally,HEART: Regular S1 S2, no audible murmursABDOMEN: soft, non-tender, normoactive bowel sounds,RECTAL: deferredEXTREMITIES: No edema, no clubbing, no cyanosis.PROJ MGR: Awake, no lateralizing signs.SKIN: No rash- Physical ExamVital SignsTemp Pulse Resp BP Pulse Ox98.1 F 89 19 H 156/80 H 11:16 09/19/17 13:14 09/19/17 13:14 11/01 13:14 09/19/17 13:14Oxygen Delivery Method Room AirAssessment/ PlanActive and Suspected ProblemsSyncope and collapse (Acute)Patient is a 72-year-old gentleman presented with syncopal episode1. Syncopal episode admitted to monitored bed for continuous telemetry monitoring as part ofpatient management ordered serial cardiac enzymes 2D echo. Also ordered MRI of the brain withand without contrast in view of reported seizure-like activity consultation placed to neurology2. Hypertension -blood pressure controlled, home medications continued with dose adjustment asneeded3. Tobacco dependence (smokes pipe) counseled on cessation, offered nicotine patch for tobaccocravings4. DVT prophylaxis SC Bbzsonq55/03/18 1439 < Electronically signed by Jordy Price MD>Date Jordy Price [facility] Signature: Date (if applicable)CC: Jordy Price MD; Ro Amaral MD Signed EMERGENCY DEPARTMENT Observed: 09/19/2017 Status: F Source: [place] SUMMARY 2:01 PM [facility] [place] [facility] [address] [address]Dnnbsaamk Department Gfjjsgf56/03/18 1312MR#: [id number] Acct: [id number]: ARIELCHIP Natanael Rep #: [id number]: 1945 72 From: Efren Garcia MDPCP: Ro Amaral MD Status: ADM INOADDENDUM by Ibrahima Garcia MD on 09/19/17 at 1401The radiologist read a right lower lobe infiltrate on the plain film. Clinically, I do notthink he has pneumonia at this time. He is not coughing and he does not have a leukocytosis orfever. His lungs are clear. He will be observed and reevaluated on the floor.Date Efren Garcia MDcc: Ro Amaral MD *Signed- ER Visit SummaryDate of Service: 09/19/17Chief Complaint: SyncopeHistory of Present Illness: The patient is a 72 M presents after a syncopal event. He statesthat he felt lightheaded and somewhat weak this morning on awakening. He and his wereriding in the car to [facility] [place] when he made a groaning sound and thensuddenly became unresponsive. His pulled over on the highway and called 911. He wasunresponsive and had vomitus in his nares and on his shirt. He remained unresponsive forseveral minutes but then woke up and was not postictal. He returned almost immediately tobaseline mental status and is feeling much better now except for slightly lightheaded. Hestates that he had a syncopal event approximately 15-20 years ago in [place] but denies anycardiac issues. He does take 3 different medications for hypertension including 100 mg ofmetoprolol twice daily. There have been no changes in his medication or recent illness.Physical Examination: Vitals are within normal limits. He is not in distress. Neck is supple.No meningeal findings. Heart tones are regular without murmur. Lungs are clear bilaterally.Abdomen is soft and nontender. No focal or lateralizing neuro findings. NIH is 0.Test Results: Laboratory studies here basically unremarkable. Troponin negative. Two-viewchest x-ray interpreted independently by me is negative. EKG unremarkable.Emergency Department Course and Treatment: This sounds more like a syncopal event to me, he didnot have actual seizure-like activity, just brief shaking immediately after the syncopal eventbut no full body seizure activity. His workup here is basically unremarkable but he is stillfeeling somewhat lightheaded.Treatment Plan: He will be admitted as observation to telemetryDisposition: Admit observationImpression: Initial encounter for acute syncopal event of uncertain etiologyThis note was generated with [employer] dictation software. It may contain incorrect words,spelling, and punctuation that were not noted in review of the chart prior to signingED Disposition- Plan for ED Patient:Chief Complaint: SeizureReferrals:Ro Amaral MD [Primary Care Provider] -What to do if you have ProblemsFor any increased pain, shortness of breath, bleeding, nausea or vomiting, chest pain, or anyunexpected problems, contact your Primary Care Provider. Call [facility] ([phone])or report to the closest Emergency Room.Call 911 if necessary.09/19/17 1314 <Electronically signed by Efren Garcia MD&gt ;Date Efren Garcia MDCosigner Signature (If Indicated): Date ___CC: Ro Amaral MD CBC W/DIFF, AUTOMATED Collected: 09/19/2017 Status: F Source: LOC 11:40 AM [facility] [place] TYPE CODE TESTS RESULT OUT OF RANGE REFERENCE UNITS LAB L100.1000 Normal 4.4-11.0 K/mm3 WBC 9.1 LAB L100.1200 Normal 4.6-6.2 M/mm3 RBC 4.97 LAB L100.1300 Normal 13.0-16.5 g/dl HGB 16.3 LAB L100.1400 Normal 40-54 % HCT 47.1 LAB L100.1500 High 80-94 fL MCV 94.8 LAB L100.1600 High 27.0-32.0 pg MCH 32.8 LAB L100.1700 Normal 32-36 g/gl MCHC 34.6 LAB L100.1810 Normal 11.6-14.6 % RDW 13.7 CV LAB L100.1820 High 35.1-43.9 fl RDW 47.6 SD LAB L100.1900 Normal 150-450 K/mm3 PLT 235 LAB L100.2000 Normal 6.2-12.0 fl MPV 8.5 LAB L100.2100 Normal 47-70 % NEUT% 61.9 LAB L100.2200 Normal 19-41 % LY% 22.3 LAB L100.2300 High 0-10 % MONO% 14.7 LAB L100.2400 Normal 0-5 % EO% 0.6 LAB L100.2500 Normal 0-1 % BASO% 0.3 LAB L100.2550 Normal 0.0-0.9 % IM 0.200 GRAN % Result Comment: IG% - Immature Granulocytes (promyelocytes, myelocytes andmetamyelocytes) > 1% indicates that a LEFT SHIFT is Present. LAB L100.2620 Normal 2.0-7.7 X10 3/uL Absolute Neut 5.6 LAB L100.2720 Normal 0.83-4.51 X10 3/ul Absolute Lymph 2.02 Performed By: #### L100.0100 ####[facility] [address] [place], [place], [id number] COMPREHENSIVE METABOLIC Collected: 09/19/2017 Status: F Source: LOC LARRY 11:40 AM [facility] [place] Order Comment: 'TROP' Serial specimen #1, #2, #3, or #4: 1 TYPE CODE TESTS RESULT OUT OF RANGE REFERENCE UNITS LAB L501.0100 Normal 74-106 mg/dL GLU 101 LAB L501.1000 Normal 7-18 mg/dL BUN 8 LAB L501.1100 Low 0.70-1.30 mg/dL 0.69 CREAT,SERUM Result Comment: The validity of the calculated GFR AND GFRAA in patients over70 years has not been determined. Clinical correlation isessential. LAB L501.1110 Normal >60 mL/min EST GFR 120 Result Comment: Non- GFR Calc LAB L501.1115 Normal >60 mL/min EST GFR - 146 AA Result Comment: GFR Calc LAB L501.1255 Normal ml/min Estimated 63.35 CRCL LAB L501.1300 Normal 10-20 RATIO BUN/CRE 11.6 LAB L501.1500 Normal 6.4-8. g/dL T PROT 8.1 2 LAB L501.1800 Normal 3.2-5. g/dL ALB 3.9 0 LAB L501.1950 Normal 2.2-4. g/dL GLOB 4.2 2 LAB L501.2000 Normal 0.9-2. RATIO A/G 0.9 4 LAB L501.2200 Normal 8.5-10 mg/dL CA 8.8 .1 LAB L501.4100 Normal 15-37 U/L AST 25 LAB L501.4305 Normal 45-117 U/L ALK P 85 LAB L501.4405 Normal 16-61 U/L ALT 29 Result Comment: Please note revised ALT reference range akoisbqti14/28/2018. LAB L501.4600 High 0.20-1.00 mg/dL T BILI 1.20 LAB L501.5300 Normal 136-145 mmol/L NA 137 LAB L501.5600 Normal 3.5-5.1 mmol/L K 3.8 LAB L501.5900 Normal 98-107 mmol/L CL 100 LAB L501.6100 Normal 21.0-32.0 mmol/L CO2 28.0 LAB L501.6200 Normal 5-15 GAP 9 Performed By: #### L500.4050, L501.4010 ####[facility] [address] [place], [address] TROPONIN-I Collected: 09/19/2017 Status: F Source: [place] 11:40 AM [facility] [place] Order Comment: 'TROP' Serial specimen #1, #2, #3, or #4: 1 TYPE CODE TESTS RESULT OUT OF RANGE REFERENCE UNITS LAB L501.4010 Normal <0.06 ng/mL < TROPONIN-I 0.02 Result Comment: TROPONIN-I EXPECTED VALUES <0.05 NEGATIVE 0.06 - 0.59 AT RISK OF SC > OR = 0.60 SUGGEST SC Performed By: #### L500.4050, L501.4010 ####[facility] [address] [place], [address] BRAIN/HEAD WITHOUT Observed: 09/19/2017 Status: F Source: [place] CONTRAST 11:36 AM [facility] [place] [facility] [address] [facility] [place], [place] [address]Xtvvc/Head without ContrastMR#: [id number] Acct: [id number]: CHIP DURBIN Rep #: [id number]: 1945 M 72 From: Rashawn Mae MDPCP: Ro Amaral MD Status: REG ERStudy: Brain/Head without Contrast Date of Exam: 09/19/17Exam# [id number] Ordering Dr: Efren Garcia MDSTUDY: CT BRAIN WITHOUT CONTRASTREASON FOR EXAM: Male, 72 years old. Syncope. Seizure like activityRADIATION DOSAGE ( If Supplied By Facility): CTDIvol = ( 44.99 ) mGy, DLP =( 779.24 ) mGycmTECHNIQUE : Transaxial CT imaging of the brain was performed withoutadministration of intravenous contrast material.Individualized dose optimization techniques were used for this CT.COMPARISON: None. FINDINGS:Normal soft tissue structures. Normal calvarium.Normal size ventricles and extra-axial spaces for the patient's age.Normal white matter tracts of the cerebral hemispheres. Normal basalganglia and thalami. Normal brainstem. Normal cerebellum.There is no intracranial hemorrhage. There are no findings of an acuteischemic infarction.Normal visualized paranasal sinuses. ORDER #: [id number] CT/Brain/Head without ContrastIMPRESSION:Normal unenhanced CT scan of the brain.Electronically Signed:Rashawn Mae MD at 12:26 ESTTel , Service support , CA: Ibrahima Garcia MD; Ro Amaral MD Glass Cleaning Machine Tender:Signed CHEST PA AND LATERAL Observed: 09/19/2017 Status: F Source: [place] 11:36 AM [facility] [place] [facility] [address] [place], [place] [address]Mwngi PA and LateralMR#: [id number] Acct: [id number]: ARIELCHIP Natanael Rep #: [id number]: 1945 M 72 From: Rashawn Mae MDPCP: Ro Amaral MD Status: REG ERStudy: Chest PA and Lateral Date of Exam: 09/19/17Exam# [id number] Ordering Dr: Efren Garcia MDSTUDY: X-RAY CHESTREASON FOR EXAM: Male, 72 years old. SyncopeTECHNIQUE: PA and lateral views of the chest.COMPARISON: None. FINDINGS:There is hyperinflation of the lungs consistent with chronic obstructivelung disease (COPD). Right perihilar and lower lung infiltrates. There isno demonstrated pleural abnormality.Normal size heart. Normal mediastinum and jose. Normal visualizedpulmonary arteries. Normal visualized aortic arch and descending thoracicaorta.There is demineralization of the osseous structures. Normal visualizedribs, clavicles, and shoulders.There is no demonstrated abnormality of the visualized soft tissuestructures of the upper abdomen. ORDER #: [id number] RAD/Chest PA and LateralIMPRESSION:Right lower lung infiltrate.Electronically Signed:Rashawn Mae MD at 13:20 ESTTel , Service support , GL: Ibrahima Garcia MD; Ro Amaral MD Glass Cleaning Machine Tender: Signed MAGNESIUM Collected: 09/19/2017 Status: F Source: [place] 11:36 AM [facility] [place] TYPE CODE TESTS RESULT OUT OF RANGE REFERENCE UNITS LAB L501.5200 Normal 1.6-2.6 mg/dL MG 2.1 Result Comment: Please note revised Magnesium reference range jyolabtby57/15/2018. Performed By: #### L501.5200 ####[facility] [address] [place], [address] PROGRESS Observed: 08/28/2017 Status: COMPLETED Source: [place] 8:12 AM [facility] REPOSITORY HNO ID: [id number]: Ro Husain: (none) Author Type: PhysicianType: Progress NotesFiled: 08/28/2017 8:36 AMNote Text:Chief ComplaintPatient presents with:F/U HTN 6 MonthHPIRiawilda Durbin is a 72 year old male who presents here today for followup.HTN: doing well on meds; no chest pain, SOB or dizziness.COPD: breathing stable; on no meds.Skin: rash on right lower legs for weeks, some itching. Not getting worse.Past medical history, appointments, medications, allergies reviewed.Previous Medical HistoryPAST MEDICAL HISTORYDiagnosis Date- Essential hypertension, benign- Internal hemorrhoids without mention of complicationPrevious Surgical HistoryPAST SURGICAL HISTORYProcedure Laterality Date- COLONOSCOP W/ OR W/O [facility] SPEC 11/28/2005 Colonoscopy- COLONOSCOP W/ OR W/O [facility] SPEC 06/30/2016 ColonoscopyFamily HistoryFAMILY HISTORYProblem Relation Age of Onset- Diabetes Father- Coronary Artery Disease Father- Hypertension BrotherPatient AllergiesALLERGIESNo Known AllergiesCurrent MedicationsCurrent Outpatient Prescriptions on File Prior to Visit:lisinopril (ZESTRIL, PRINIVIL) 20 mg tablet TAKE 1 TABLET BY MOUTH ONCEDAILY.Tadalafil (CIALIS) 10 mg tablet Take 1/2 - 1 tablet by mouth 1-2 hoursprior to sexual activity as needed.amLODIPine (NORVASC) 10 mg tablet TAKE 1 TABLET EVERY DAYmetoprolol tartrate, short acting, (LOPRESSOR) 100 mg tablet TAKE 1 TABLETBY MOUTH TWICE DAILY.CENTRUM SILVER TAB Take one(1) tablet daily.No current facility-administered medications on file prior to visit.Social HistorySocial History Marital status: Spouse name: Marky Years of education: Number of children: 4Occupational HistoryOccupation Employer Comment [employer]*Social History Main Topics Smoking status: Former Smoker Packs/day: 0.50 Years: 0.00 Types: Cigarettes, Pipe Quit date: 08/22/2015 Smokeless status: Never Used Comment: also a pipe Alcohol use: Yes Comment: 4 to 6 beers per dayEXAM:BP 128/70 (BP Site: Right Arm, BP Position: Sitting, BP Cuff Size: RegularAdult) Pulse 68 Temp 37 ?C (98.6 ?F) (Tympanic) Resp 18 Wt 71.2 kg(157 lb) BMI 24.05 kg/i8Qwhapwj Appearance: Well appearing, alert, in no acute distress,well- hydrated, well nourished..Skin: small area of inflammation right lower medial leg.Lungs: Lungs clear to auscultation. No wheezing, rhonchi, rales.Heart: RRR without murmur, gallop, or rubs. No ectopy.Health Maintenance ListADULT PREVNAR-13 due on 2010TETANUS due on 03/08/2018DIABETES SCREEN due on 02/24/2020COLORECTAL CANCER SCREENING, SEE MODIFIER due on 1LIPID SCREEN due on 2PROSTATE CANCER SCREENING DISCUSSION CompletedINFLUENZA CompletedHEPATITIS C SCREENING CompletedPNEUMOVAX AGE 65 AND OVER WITH 5YR LOOKBACK CompletedData reviewedNoneASSESSMENT/PLAN:1. Essential hypertension, benign - ICD9: 401.1, ICD10: I10 (primarydiagnosis)- good control- Continue current medication(s)- Goal of BP <140/80- COMP METABOLIC PANEL- LIPID PANEL BASIC2. Chronic obstructive pulmonary disease, unspecified COPD type (HCC ) -ICD9: 496, ICD10: J44.9Stable; no meds3. Rash - ICD9: 782.1, ICD10: E82Bnremeqsp OTC hydrocortisone creamFollow up in 6 months with labs priorRo Amaral MD CNOV Observed: 08/28/2017 Status: COMPLETED Source: [place] 8:00 AM [facility] REPOSITORY Office Visit (FAMPWS) ---------CHIP DURBIN ([id number]) 1945 [facility] Department08/28/17 8:00 AM RO AMARAL FAMPWS During your visit today, we recorded the following information about you: Temperature Pulse Respiration Blood pressure 98.6 degrees 68/minute 18/minute 128/70 Weight 71.2 kgRo Amaral MD 08/28/2017 8:36 AM SignedChief ComplaintPatient presents with:F/U HTN 6 MonthHPIRiawilda Natanael Devanazar is a 72 year old male who presents here today for follow up.HTN: doing well on meds; no chest pain, SOB or dizziness.COPD: breathing stable; on no meds.Skin: rash on right lower legs for weeks, some itching. Not getting worse.Past medical history, appointments, medications, allergies reviewed.Previous Medical HistoryPAST MEDICAL HISTORYDiagnosis Date- Essential hypertension, benign- Internal hemorrhoids without mention of complicationPrevious Surgical HistoryPAST SURGICAL HISTORYProcedure Laterality Date- COLONOSCOP W/ OR W/O [facility] SPEC 11/28/2005 Colonoscopy- COLONOSCOP W/ OR W/O [facility] SPEC 06/30/2016 ColonoscopyFamily HistoryFAMILY HISTORYProblem Relation Age of Onset- Diabetes Father- Coronary Artery Disease Father- Hypertension BrotherPatient AllergiesALLERGIESNo Known AllergiesCurrent MedicationsCurrent Outpatient Prescriptions on File Prior to Visit:lisinopril ( ZESTRIL, PRINIVIL) 20 mg tablet TAKE 1 TABLET BY MOUTH ONCE DAILY.Tadalafil (CIALIS) 10 mg tablet Take 1 /2 - 1 tablet by mouth 1-2 hours prior tosexual activity as needed.amLODIPine (NORVASC) 10 mg tablet TAKE 1 TABLET EVERY DAYmetoprolol tartrate, short acting, (LOPRESSOR) 100 mg tablet TAKE 1 TABLET BYMOUTH TWICE DAILY.CENTRUM SILVER TAB Take one(1) tablet daily.No current facility- administered medications on file prior to visit.Social HistorySocial History Marital status: Spouse name: Marky Years of education: Number of children: 4Occupational HistoryOccupation Employer Comment [employer]*Social History Main Topics Smoking status: Former Smoker Packs/day: 0.50 Years: 0.00 Types: Cigarettes, Pipe Quit date: 08/22/2015 Smokeless status: Never Used Comment: also a pipe Alcohol use: Yes Comment: 4 to 6 beers per dayEXAM:BP 128/70 (BP Site: Right Arm, BP Position: Sitting, BP Cuff Size: RegularAdult) Pulse 68 Temp 37 ?C (98.6 ?F) (Tympanic) Resp 18 Wt 71.2 kg (157lb) BMI 24.05 kg /n5Hnwlhng Appearance: Well appearing, alert, in no acute distress, well-hydrated,well nourished..Skin : small area of inflammation right lower medial leg.Lungs: Lungs clear to auscultation. No wheezing, rhonchi, rales.Heart: RRR without murmur, gallop, or rubs. No ectopy.Health Maintenance ListADULT PREVNAR-13 due on 2011TETANUS due on 03/08/2018DIABETES SCREEN due on 2019COLORECTAL CANCER SCREENING,SEE MODIFIER due on 1LIPID SCREEN due on 2PROSTATE CANCER SCREENING DISCUSSION CompletedINFLUENZA CompletedHEPATITIS C SCREENING CompletedPNEUMOVAX AGE 65 AND OVER WITH 5YR LOOKBACK CompletedData reviewedNoneASSESSMENT/PLAN:1. Essential hypertension, benign - ICD9: 401.1, ICD10: I10 (primary diagnosis)- good control- Continue current medication(s)- Goal of BP ANDlt;140/80- COMP METABOLIC PANEL- LIPID PANEL BASIC2. Chronic obstructive pulmonary disease, unspecified COPD type (HCC) - ICD9:496, ICD10: J44.9Stable; no meds3. Rash - ICD9: 782.1, ICD10: Y57Byfsvalbg OTC hydrocortisone creamFollow up in 6 months with labs [facility] Provider: RO AMARAL [[id number]]Allergies As of Date: 08/28/2017(No Known Allergies)Date Reviewed: 08/28Reviewed by: Stella Mendenhall LPN - Fully AssessedReason for Visit: F/U HTN 6 Month [448]Primary Visit Diagnosis:Essential hypertension, benign [I10] Other Visit Diagnoses:Chronic obstructive pulmonary disease, unspecified COPD type (HCC) [J44.9] Rash [R21 ]Order(s):COMP METABOLIC PANEL [SQCMP] Order #: [id number] FUTURE LIPID PANEL BASIC [SQLIPB] Order #: [id number] FUTUREPrescriptions as of 08/28/2017 Sig: LISINOPRIL 20 MG TABLET TAKE 1 TABLET BY MOUTH ONCE D* TADALAFIL 10 MG TABLET Take 1/2 - 1 tablet by mouth * AMLODIPINE 10 MG TABLET TAKE 1 TABLET EVERY DAY METOPROLOL TARTRATE 100 MG TA* TAKE 1 TABLET BY MOUTH TWICE *Problem List As Of Date 08/28/2017 Noted Resolved Hemorrhage of rectum and anus [K62.5] 07/24/2010 Benign neoplasm of colon [D12.6] INVALID FOR*07/24/2010 BENIGN HYPERTENSION [I10] INVALID FOR* BPH W/O URINARY OBS/LUTS [N40.0] INVALID FOR* ABNORMAL LIVER FUNCTION STUDY [R94.5] INVALID FOR * Pulmonary embolism without acute cor pulmonale *INVALID FOR* Chronic obstructive pulmonary disease (HCC) [J4*INVALID FOR*Medications Discontinued During This Encounter CENTRUM SILVER TAB 0 11/13/2005 08/28/2017 Class: Historical Med Route: ORAL Sig: Take one(1) tablet daily. Disc: Reason for discontinue is not on file.Disposition: Return in about 6 months (around 02/25/2018).Follow-up and Disposition History RecordedEncounter Number: [id number] Status:Closed by RO AMARAL MD on 08/28/17 OBSOLETE Observed: 03/06/2017 Status: COMPLETED Source: [place] 12:00 AM [facility] REPOSITORY Refill (FAMPWS) ---------CHIP DURBIN ([id number]) 1945 MDate Time Provider Department03/06/17 [facility] During your visit today, we recorded the following information about you:Laura Baker PharmD 03/06/2017 10:21 AM SignedPharmacist Refill Authorization ReviewName: Chip DurbinMRN: [id number]: 03/06/2017Time: 10:21 AMRefill authorization request(s) received via pharmacy request and reviewedunder effective consult agreement. Upon review, did confirm that an activepatient-provider relationship exists and that the prescriber is a participatingphysician under the consult agreement.The medication(s) fall under the following categories:Category 1: 1 corresponding medication(s) qualifies for renewal due to up todate labs and provider visits.Additional actions taken: Prescription(s) issued.Kolton KelseyDPharmacy Managed Authorization CenterPhone Current Outpatient Prescriptions: lisinopril (ZESTRIL, PRINIVIL) 20 mg tablet TAKE 1 TABLET BY MOUTH ONCE DAILY.Tadalafil (CIALIS) 10 mg tablet Take 1/2 - 1 tablet by mouth 1-2 hours prior tosexual activity as needed.amLODIPine (NORVASC) 10 mg tablet TAKE 1 TABLET EVERY DAYmetoprolol tartrate, short acting, (LOPRESSOR) 100 mg tablet TAKE 1 TABLET BYMOUTH TWICE DAILY.CENTRUM SILVER TAB Take one(1) tablet daily.No current facility- administered medications for this visit.Allergies As of Date: 03/06/2017(No Known Allergies)Date Reviewed: 2016Reviewed by: Abigail Fontanez Ma - Fully AssessedReason for Visit: Refill Request [94]Order(s): lisinopril (ZESTRIL, PRINIVIL) 20 mg tabletTAKE 1 TABLET BY MOUTH ONCE DAILY.Disp: 90 tabletRfl: 1Prescriptions as of 03/06/2017 Sig: LISINOPRIL 20 MG TABLET TAKE 1 TABLET BY MOUTH ONCE D* TADALAFIL 10 MG TABLET Take 1/2 - 1 tablet by mouth * AMLODIPINE 10 MG TABLET TAKE 1 TABLET EVERY DAY METOPROLOL TARTRATE 100 MG TA* TAKE 1 TABLET BY MOUTH TWICE * * CENTRUM SILVER TABLET Take one(1) tablet daily.Problem List As Of Date 03/06/2017 Noted Resolved Hemorrhage of rectum and anus [K62.5] 07/24/2010 Benign neoplasm of colon [D12.6] INVALID FOR*07/24/2010 BENIGN HYPERTENSION [I10] INVALID FOR* BPH W/O URINARY OBS/LUTS [N40.0] INVALID FOR* ABNORMAL LIVER FUNCTION STUDY [R94.5] INVALID FOR* Pulmonary embolism without acute cor pulmonale *INVALID FOR* Chronic obstructive pulmonary disease (HCC) [J4*INVALID FOR*Prescriptions ordered this encounter Disp Refills Start End LISINOPRIL 20 MG TABLET 90 t* 1 03/06/2017 Sig: TAKE 1 TABLET BY MOUTH ONCE DAILY.Medications Discontinued During This Encounter lisinopril (ZESTRIL , PRINIVIL) 20 mg* 90 t* 0 11/27/2016 03/06/2017 Route: ORAL Sig: Take 1 tablet by mouth once daily. Disc: Reason for discontinue is not on file. Status:Closed by IRA (PHARMACIST)LAURA on 03/06/17 PROGRESS Observed: 02/25/2017 Status: COMPLETED Source: [place] 8:41 AM [facility] [place] REPOSITORY HNO ID: [id number]: Ro Husain: (none) Author Type: PhysicianType: Progress NotesFiled: 02/25/2017 11:35 AMNote Text:Chief ComplaintPatient presents with:F/U 6 MonthHPIRiannrd Natanael Durbin is a 71 year old male who presents here today for 6months.Smokes occ pipe. Denies any bowel, gi, or urinary issues.HTN: does check BP at home readings 140/80 or lower. Denies any chestpains, dizziness, or SOB. Is taking Lopressor 100 mg BID, Lisinopril 20mg daily, and Norvasc 10 mg daily. Pt has noticed that his heart ratewill be elevated in the 100 range occ. He states usually there is areason for that, like he feels anxious. He states he checks his pulserandomly. He states he feels well when the pulse rate is up, and it doesnot take long for it to slow down.Admits to some hip pain and other body aches if he is overly active butnothing he can not tolerate.Breathing stable.Past medical history, appointments, medications, allergies reviewed.Previous Medical HistoryPAST MEDICAL HISTORYDiagnosis Date- Essential hypertension, benign- Internal hemorrhoids without mention of complicationPrevious Surgical HistoryPAST SURGICAL HISTORY11/28/2005: COLONOSCOP W/ OR W/O [facility] SPE[facility] Comment: Foiufrwsrdo40/14/2016: COLONOSCOP W/ OR W/O [facility] SPEC Comment: ColonoscopyFamily HistoryFAMILY HISTORY Diabetes Father Coronary Artery Disease Father Hypertension BrotherPatient AllergiesALLERGIESNo Known AllergiesCurrent MedicationsCurrent Outpatient Prescriptions on File Prior to Visit:amLODIPine (NORVASC) 10 mg tablet TAKE 1 TABLET EVERY DAYmetoprolol tartrate, short acting , (LOPRESSOR) 100 mg tablet TAKE 1 TABLETBY MOUTH TWICE DAILY.lisinopril (ZESTRIL , PRINIVIL) 20 mg tablet Take 1 tablet by mouth oncedaily.Tadalafil (CIALIS) 10 mg tablet Take 1/2 - 1 tablet by mouth 1-2 hoursprior to sexual activity as needed.CENTRUM SILVER TAB Take one(1) tablet daily.No current facility- administered medications on file prior to visit.Social HistorySocial History Marital status : Spouse name: Marky Years of education: Number of children: 4Occupational HistoryOccupation Employer Comment [employer]*Social History Main Topics Smoking status: Former Smoker Packs/day: 0.50 Years: 0.00 Types: Cigarettes, Pipe Quit date: 08/22/2015 Smokeless status: Never Used Comment: also a pipe Alcohol use : Yes Comment: 4 to 6 beers per dayEXAM:BP 140/80 (BP Site: Left Arm, BP Position: Sitting, BP Cuff Size: RegularAdult) Pulse 68 Resp 12 Wt 74 kg (163 lb 3.2 oz) BMI 25 kg/a0Melcxlq Appearance: Well appearing, alert, in no acute distress,well-hydrated, well nourished..Neck: no bruits.Lungs: Lungs clear to auscultation. No wheezing, rhonchi, rales.Heart: RRR without murmur, gallop, or rubs. No ectopy.Health Maintenance ListZOSTAVAX due on 2006DULT PREVNAR-13 due on 2011INFLUENZA(1) due on 04/17/2017TETANUS due on 03/08/2018DIABETES SCREEN due on 02/24/2020COLORECTAL CANCER SCREENING,SEE MODIFIER due on 1LIPID SCREEN due on 2PROSTATE CANCER SCREENING DISCUSSION CompletedHEPATITIS C SCREENING CompletedPNEUMOVAX AGE 65 AND OVER WITH 5YR LOOKBACK CompletedData reviewedAppointment on 02/23/2017Hep C Antibody IA Value: Negative Date: 02/23/2017Protein, Total Value: 7.3(g/dL) Date: 02/23/2017Albumin Value: 4.6(g /dL) Date: 02/23/2017Calcium Value: 9.1(mg/dL) Date: 02/23/2017Bilirubin, Total Value: 0.9(mg/dL) Date: 02/23/2017Alkaline Phosphatase Value: 63(U/L) Date: 2016AST Value: 36(U/L) Date: 02/23/2017Glucose Value: 97(mg/dL) Date: 02/23/2017BUN Value: 7(mg/dL)* Date: 02/23/2017Creatinine Value: 0.67(mg/dL)* Date: 02/23/2017Sodium Value: 134(mmol/L)* Date: 02/23/2017Potassium Value: 4.0(mmol/L) Date: 02/23/2017Chloride Value: 93(mmol/L)* Date: 02/23/2017CO2 Value: 25(mmol/L) Date: 02/23/2017Anion Gap Value: 16(mmol/L) Date: 02/23/2017ALT Value: 28(U/L) Date : 02/23/2017eGFR- Value: >60 Date: 02/23/2017eGFR-All Other Races Value: >60(.) Date: 02/23/2017Triglyceride Value: 92(mg/dL) Date: 02/23/2017Cholesterol Value: 196(mg/dL) Date: 02/23/2017HDL Cholesterol Value: 84(mg/dL) Date: 02/23/2017VLDL Cholesterol Value: 18(mg/dL) Date: 2016LDL Cholesterol Value: 94(mg/dL) Date: 02/23/2017Fasting Time Value: 12(hrs) Date : 02/23/2017TC:HDL Ratio Value: 2.33 Date: 02/23/2017LDL:HDL Ratio Value: 1.12 Date: 02/23/2017Non HDL Cholesterol Value: 112(mg/dL) Date: 02/23/2017ASSESSMENT/ PLAN:1. Essential hypertension, benign - ICD9: 401.1, ICD10: I10- good control- Continue current medication(s)- Recommended regular aerobic exercise.- Recommend home blood pressure monitoring, to bring results in on nextvisit- Goal of BP <140/902. COPDStableFollow up in 6 months.Ro Amaral MDThe documentation for this note was completed by Abigail rhoadesas scribe for Ro Amaral MD. February 25, 2017 8:42 AM. CNOV Observed: 02/25/2017 Status: COMPLETED Source: [place] 8:20 AM [facility] REPOSITORY [facility] ---------CHIP DURBIN ([id number]) 1945 MDate Time Provider Department02/25/17 8:20 AM RO AMARAL During your visit today, we recorded the following information about you: Pulse Respiration Blood pressure Weight 68/minute 12/minute 140/80 74 kgRo Amaral MD 2016 11:35 AM SignedChief ComplaintPatient presents with:F/U 6 MonthHPIRichard Natanael Durbin is a 71 year old male who presents here today for 6 months.Smokes occ pipe. Denies any bowel, gi, or urinary issues.HTN: does check BP at home readings 140/80 or lower. Denies any chest pains,dizziness, or SOB. Is taking Lopressor 100 mg BID, Lisinopril 20 mg daily, andNorvasc 10 mg daily. Pt has noticed that his heart rate will be elevated inthe 100 range occ. He states usually there is a reason for that, like he feelsanxious. He states he checks his pulse randomly. He states he feels well whenthe pulse rate is up, and it does not take long for it to slow down.Admits to some hip pain and other body aches if he is overly active but nothinghe can not tolerate.Breathing stable.Past medical history, appointments, medications, allergies reviewed.Previous Medical HistoryPAST MEDICAL HISTORYDiagnosis Date- Essential hypertension, benign- Internal hemorrhoids without mention of complicationPrevious Surgical HistoryPAST SURGICAL HISTORY11/28/2005: COLONOSCOP W/ OR W/O [facility] SPE[facility] Comment: Hlepqwpqevz55/14/ 2016: COLONOSCOP W/ OR W/O [facility] Comment: ColonoscopyFamily HistoryFAMILY HISTORY Diabetes Father Coronary Artery Disease Father Hypertension BrotherPatient AllergiesALLERGIESNo Known AllergiesCurrent MedicationsCurrent Outpatient Prescriptions on File Prior to Visit:amLODIPine (NORVASC) 10 mg tablet TAKE 1 TABLET EVERY DAYmetoprolol tartrate, short acting, (LOPRESSOR) 100 mg tablet TAKE 1 TABLET BYMOUTH TWICE DAILY.lisinopril (ZESTRIL, PRINIVIL) 20 mg tablet Take 1 tablet by mouth once daily.Tadalafil (CIALIS) 10 mg tablet Take 1/2 - 1 tablet by mouth 1-2 hours prior tosexual activity as needed.CENTRUM SILVER TAB Take one(1) tablet daily.No current facility-administered medications on file prior to visit.Social HistorySocial History Marital status: Spouse name: Marky Years of education: Number of children: 4Occupational HistoryOccupation Employer Comment [employer]*Social History Main Topics Smoking status: Former Smoker Packs/day: 0.50 Years: 0.00 Types: Cigarettes, Pipe Quit date: 08/22 Smokeless status: Never Used Comment: also a pipe Alcohol use: Yes Comment: 4 to 6 beers per dayEXAM:BP 140/80 (BP Site: Left Arm, BP Position: Sitting, BP Cuff Size: RegularAdult) Pulse 68 Resp 12 Wt 74 kg (163 lb 3.2 oz) BMI 25 kg/x2Wmfjqqt Appearance: Well appearing, alert, in no acute distress, well-hydrated,well nourished..Neck: no bruits.Lungs: Lungs clear to auscultation. No wheezing, rhonchi, rales.Heart: RRR without murmur, gallop, or rubs. No ectopy.Health Maintenance ListZOSTAVAX due on 2006DULT PREVNAR-13 due on 2011INFLUENZA(1) due on 2016TETANUS due on 03/08/2018DIABETES SCREEN due on 02/24/2020COLORECTAL CANCER SCREENING,SEE MODIFIER due on 1LIPID SCREEN due on 2PROSTATE CANCER SCREENING DISCUSSION CompletedHEPATITIS C SCREENING CompletedPNEUMOVAX AGE 65 AND OVER WITH 5YR LOOKBACK CompletedData reviewedAppointment on 02/23/2017Hep C Antibody IA Value: Negative Date: 02/23/2017Protein, Total Value: 7.3(g/dL) Date: 02/23/2017Albumin Value: 4.6(g/dL) Date: 02/23/2017Calcium Value: 9.1(mg/dL) Date: 02/23/2017Bilirubin, Total Value: 0.9(mg/dL) Date: 02/23/2017Alkaline Phosphatase Value: 63(U/L) Date: 02/23/2017AST Value: 36(U/L) Date: 02/23/2017Glucose Value: 97(mg/dL) Date: 02/23/2017BUN Value: 7(mg/dL)* Date: 02/23/2017Creatinine Value: 0.67(mg/dL)* Date: 2016Sodium Value: 134(mmol/L)* Date: 02/23/2017Potassium Value: 4.0(mmol/L) Date: 02/23/2017Chloride Value: 93(mmol/L)* Date: 02/23/2017CO2 Value: 25(mmol/L) Date: 02/23/2017Anion Gap Value: 16(mmol/L) Date: 02/23/2017ALT Value: 28(U/L) Date: 02/23/2017eGFR- Value: ANDgt;60 Date: 2016eGFR-All Other Races Value: ANDgt;60(.) Date: 02/23/2017Triglyceride Value: 92(mg/dL) Date: 2016Cholesterol Value: 196(mg/dL) Date: 02/23/2017HDL Cholesterol Value: 84(mg/dL) Date: 2016VLDL Cholesterol Value: 18(mg/dL) Date: 02/23/2017LDL Cholesterol Value: 94(mg/dL) Date: 2016Fasting Time Value: 12(hrs) Date: 02/23/2017TC:HDL Ratio Value: 2.33 Date: 02/23/2017LDL:HDL Ratio Value : 1.12 Date: 02/23/2017Non HDL Cholesterol Value: 112(mg/dL) Date: 02/23/2017ASSESSMENT/ PLAN:1. Essential hypertension, benign - ICD9: 401.1, ICD10: I10- good control- Continue current medication(s)- Recommended regular aerobic exercise.- Recommend home blood pressure monitoring, to bring results in on next visit- Goal of BP ANDlt;140/902. COPDStableFollow up in 6 months.Ro Amaral MDThe documentation for this note was completed by Abigail Fontanez Ma acting asscribe for Ro Amaral MD. February 25, 2017 8:42 AM.Referring Provider: RO AMARAL [[id number]] Allergies As of Date: 02/25/2017(No Known Allergies)Date Reviewed: 02/25/2017Reviewed by: Abigail Fontanez Ma - Fully AssessedReason for Visit: F/U 6 Month [444]Primary Visit Diagnosis:Essential hypertension, benign [I10] Other Visit Diagnosis:Chronic obstructive pulmonary disease, unspecified COPD type (HCC) [J44.9]Order(s):Tadalafil (CIALIS) 10 mg tabletTake 1/2 - 1 tablet by mouth 1-2 hours prior to sexual activity as needed.Disp: 6 tabletRfl: 11Prescriptions as of 07/2017 Sig: TADALAFIL 10 MG TABLET Take 1/2 - 1 tablet by mouth * AMLODIPINE 10 MG TABLET TAKE 1 TABLET EVERY DAY METOPROLOL TARTRATE 100 MG TA* TAKE 1 TABLET BY MOUTH TWICE * LISINOPRIL 20 MG TABLET Take 1 tablet by mouth once d* * CENTRUM SILVER TABLET Take one(1) tablet daily.Problem List As Of Date 02/25/2017 Noted Resolved Hemorrhage of rectum and anus [K62.5] 07/24/2010 Benign neoplasm of colon [D12.6 ] INVALID FOR*07/24/2010 BENIGN HYPERTENSION [I10] INVALID FOR* BPH W/O URINARY OBS/LUTS [N40.0] INVALID FOR* ABNORMAL LIVER FUNCTION STUDY [R94.5] INVALID FOR* Pulmonary embolism without acute cor pulmonale *INVALID FOR* Chronic obstructive pulmonary disease (HCC) [J4*INVALID FOR*Prescriptions ordered this encounter Disp Refills Start End TADALAFIL 10 MG TABLET 6 ta* 11 02/25/2017 Class: Print RX Sig: Take 1/2 - 1 tablet by mouth 1-2 hours prior to sexual activity as needed.Medications Discontinued During This Encounter Tadalafil (CIALIS) 10 mg tablet 6 ta* 11 06/10/2016 02/25/2017 Class: Print RX Sig: Take 1/2 - 1 tablet by mouth 1-2 hours prior to sexual activity as needed. Disc: Reason for discontinue is not on file.Disposition: Return in about 6 months (around 08/28/2017).Follow-up and Disposition History RecordedEncounter Number: [id number] Status:Closed by RO AMARAL MD on 02/25/17 HEP C AB IA W/CONF Collected: 02/23/2017 Status: F Source: [place] 8:31 AM [facility] REPOSITORY TYPE CODE TESTS RESULT OUT OF REFERENCE UNITS RANGE LAB AHCV Negative Hepatitis C Negative Ab IA Performed By: #### AHCV1B, CMP, LIPB ####[facility] [id number] [place], [place] [phone] COMP METABOLIC PANEL Collected: 02/23/2017 Status: F Source: [place] 8:31 AM [facility] REPOSITORY TYPE CODE TESTS RESULT OUT OF REFERENCE UNITS RANGE LAB TP 6.3-8.0 g/dL Protein, Total 7.3 LAB ALB 3.9-4.9 g/dL Albumin 4.6 LAB CA 8.5-10.2 mg/dL Calcium, Total 9.1 LAB TBIL 0.2-1.3 mg/dL Bilirubin, 0.9 Total LAB ALKP 36-108 U/L Alkaline 63 Phosphatase LAB AST 14-40 U/L AST 36 LAB GLU 74-99 mg/dL Glucose 97 Result Comment: The [place] [employer] (ADA) provides guidance for cutoff values for fasting glucose and random glucose. The ADA defines fasting as no caloric intake for at least 8 hours. Fasting plasma glucose results between 100 to 125 mg/dL indicate increased risk for diabetes (prediabetes) .Fasting plasma glucose results greater than or equal to 126 mg/dL meet the criteria for diagnosis of diabetes. In the absence of unequivocal hyperglycemia, results should be confirmed by repeat testing. In a patient with classic symptoms of hyperglycemia or hyperglycemic crisis, random plasma glucose results greater than or equal to 200 mg/dL meet the criteria for diagnosis of diabetes.Reference: Standards of Medical Care in Diabetes 2016, [place]. Diabetes Care. 2016.39( Suppl 1). LAB BUN Low 9-24 mg/dL BUN 7 LAB CRET Low 0.73-1.22 mg/dL Creatinine 0.67 LAB NA Low 136-144 mmol/L Sodium 134 LAB K 3.7-5.1 mmol/L Potassium 4.0 LAB CL Low 97-105 mmol/L Chloride 93 LAB CO2 22-30 mmol/L CO2 25 LAB AGAP 9-18 mmol/L Anion Gap 16 LAB ALT 10-54 U/L ALT 28 LAB GFRAA eGFR- Amer. >60 LAB GFRNAA . eGFR-All Other Races >60 Result Comment: eGFR (Estimated GFR) Units of measure: mL/min/1.73 meters squaredeGFR is derived from the reexpressed MDRD Study equation using the following parameters: serum creatinine, age, gender and race. The creatinine assay has been calibrated to be traceable to IDMS.An eGFR <60 mL/min/1.73m2 for >3 months is consistent with chronic kidney disease. Refer to KDOQI guidelines for clinical interpretation.In patients with unstable renal function, e.g. those with acute kidney injury, the eGFR may not accurately reflect actual GFR. Performed By: #### TOMÁS1B, CMP, LIPB ####[facility] [id number] [place], [place] [phone] LIPID PANEL, BASIC Collected: 02/23/2017 Status: F Source: [place] 8:31 AM [facility] [place] REPOSITORY TYPE CODE TESTS RESULT OUT OF REFERENCE UNITS RANGE LAB TRIGLY 30-149 mg/dL Triglyceride 92 LAB CHOL 100-199 mg/dL Cholesterol 196 LAB HDL >45 mg/dL HDL-Cholesterol 84 LAB VLDL 6-40 mg/dL VLDL Cholesterol 18 LAB LDL 60-129 mg/dL LDL-Cholesterol 94 LAB FT hrs Fasting Time 12 LAB TCHDL 1.00-5.00 TC:HDL Ratio 2.33 LAB LDLHDL 0.50-3.55 LDL:HDL Ratio 1.12 LAB NONHDL 90-159 mg/dL Non HDL 112 Cholesterol Performed By: #### AHCV1B, CMP, LIPB ####[facility] [id number] [place], [place] [phone] ALLERGIES ALLERGIES DATE TYPE / CODE NAME / CODE REACTION SEVERITY SOURCE 02/20/2018 Drug No Known Unknown [facility] Allergy/416 Allergies/[id number] [facility] [id number](SNOM 0388(RXNORM) Repository ED CT) Drug NO KNOWN [facility] Class/17175 ALLERGIES [facility] 1003(SNOMED Repository CT) ENCOUNTERS ENCOUNTERS ADMIT/DISCHARGE ACCOUNT ADMITTING ENCOUNTER LOCATION SOURCE NUMBER CLASS 02/20/2018 [id number] Emergency [facility] ing:ED Repository 02/16/2018/02/19/20 [id number] Ambulatory [address] Repository 02/01/2018/02/12/20 [id number] Ambulatory [address] Repository 10/05/2017/10/05/19 [id number] Ambulatory [address] Repository 09/21/2017 [id number] Ambulatory [facility] ing:[facility] Repository 09/21/2017/09/21/19 [id number] Ambulatory BMSBuilding:[place] [facility] Repository 09/21/2017/09/21/19 [id number] Ambulatory B[facility] Repository 09/19/2017 [id number] Jordy Price Ambulatory BMSBuilding:Darian Monterroso [facility] Repository 09/19/2017 [id number] Jordy Price Ambulatory BMSBuilding:Darian Monterroso [place].[facility] Repository 09/19/2017 [id number] Jordy Price Ambulatory BMSBuilding:Darian Monterroso MS.[facility] Repository 09/19/2017/09/21/19 [id number] Jordy [facility] Amb[place] ing:PCURoom: Repository [id number]: 1 08/28/2017/08/28/19 [id number] Ambulatory [address] Repository 02/25/2017/02/26/20 [id number] Ambulatory [address] Repository 02/23/2017/02/24/20 [id number] Ambulatory [address] Repository PAYERS PAYERS ENCOUNTER GUARANTOR PAYER SUBSCRIBER SOURCE 02/20/2018 CHIP Santoyo Primary Markyrikki Monterroso [id number] Insurance:ANTHEMPolic CailletDOB: [facility] [place]: [id number] [id number] Repository [address]Imi: 330) Date:4050-22-07ND [phone] ([facility] [id number], [place] [address]JU: 02/20/2018 Secondary CHIP Monterroso Insurance:MEDICARE CAILLETDOB: [facility] PART A BPolicy [id number] Hospital Number: Repository [id number] Date:2018-02-20 02/20/2018 Tertiary NOT GIVENUNK Loc Insurance:SELF PAY [facility] Number: Effective Repository Date:2018-02-20 09/21/2017 CHIP L Primary NOT GIVENUNK Loc [id number] Insurance:SELF PAY [place] Number: Effective Repository [phone]: (330) Date:2017-09-21 () 09/21/2017 CHIP L Primary Marky [place] [id number] Insurance:ANTHEMPolic CailletDOB: [facility] y Number: [id number] [id number] Repository 387[address]Kfc: (330) Date:3719-37-04FL [address] () [address]98709AETNORW, [place] [address]EC: 09/21/2017 Secondary CHIP L Loc Insurance:MEDICARE CAILLETDOB: Community PART A [facility] [id number] Hospital Number: Repository [id number] Date:2017-09-19 09/21/2017 Tertiary NOT GIVENUNK [place] Insurance:SELF PAY [facility] Number: Effective Repository Date:2017-09-21 09/21/2017 CHIP L Primary Marky [place] [id number] Insurance:ANTHEMPolic CailletDOB: [facility] y Number: [id number], [place] [id number] Repository [address]Mkt: (330) Date:1832-49-45ZM [address] () [id number], [place] [address]KA: 09/21/2017 Secondary CHIP L [place] Insurance:MEDICARE CAILLETDOB: Community PART A [facility] [id number] Hospital Number: Repository [id number] Date:2017-09-19 09/21/2017 Tertiary NOT GIVENUNK Loc Insurance:SELF PAY [facility] Number: Effective Repository Date:2017-09-21 09/19/2017 CHIP L Primary Makry [place] [id number] Insurance:ANTHEMPolic CailletDOB: [facility] y Number: [id number] [id number] Repository [address]Cwy: (330) Date:6890-38-84MX [phone] () 429487JWQSTDT, [place] [address]GB: 09/19/2017 Secondary CHIP L Loc Insurance:MEDICARE CAILLETDOB: Community PART A [facility] [id number] Hospital Number: Repository [id number] Date:2017-09-19 09/19/2017 Tertiary NOT GIVENUNK Loc Insurance:SELF PAY [facility] Number: Effective Repository Date:2017-09-19 09/19/2017 CHIP L Primary Marky Loc [id number] Insurance:ANTHEMPolic CailletDOB: Community [facility] y Number: [id number], [place] [id number] Repository [address]Uud: (330) Date:4974-84-15EW [phone] () 514212YTBWNOD, [place] [address]IF: 09/19/2017 Secondary CHIP L [place] Insurance:MEDICARE CAILLETDOB: Community PART A [facility] [id number] Hospital Number: Repository [id number] Date:2017-09-19 09/19/2017 Tertiary NOT GIVENUNK Loc Insurance:SELF PAY [facility] Number: Effective Repository Date:2017-09-19 09/19/2017 CHIP L Primary Marky [place] [id number] Insurance:ANTHEMPolic CailletDOB: Community [facility] y Number: [id number], [place] [id number] Repository [address]Dht: (330) Date:6158-37-83JP [phone] () 723687JVAMVAZ, [place] [address]NW: 09/19/2017 Secondary CHIP L Loc Insurance:MEDICARE CAILLETDOB: Community PART A [facility] [id number] Hospital Number: Repository [id number] Date:2017-09-19 09/19/2017 Tertiary NOT GIVENUNK Loc Insurance:SELF PAY [facility] Effective Repository Date:2017-09-19 09/19/2017 CHIP Santoyo Primary Marky [place] [id number] Insurance:ANTHEMPolic CailletDOB: Community [facility] Number: [id number] [id number] Repository [address]Ytq: 330) Date:8044-67-36RS [phone] () 043280HEORETV, [place] [address]DE: 09/19/2017 Secondary CHIP Monterroso Insurance:MEDICARE CAILLETDOB: Community PART A [facility] [id number] Hospital Number: Repository [id number] Date:2017-09-19 09/19/2017 Tertiary NOT GIVENUNK Loc Insurance:SELF PAY [facility] Number: Effective Repository Date:2017-09-19
[2018-02-20] MEDS: Aspirin 81 MG TAB.CHEW 324 MG PO (18:47)
--- NOTE | 2018-02-20 20:20 | ED.VISSUMM ---
- ER Visit Summary Date of Service: 02/20/18 Chief Complaint: Weakness History of Present Illness: The patient is a [address] Anders, Dr. Nguyen, and Dr. Ramachandran. Family reports that he had just finished morning on with a riding mower. They were sitting out on the deck and he sneezed. He lost his balance sitting on a stool and went to stand and fell in the wall. Family reports that he had bilateral leg weakness. He reports that that has improved and that he now has left upper extremity, left lower extremity, and a left facial droop. Patient also reports he has paresthesias in his left arm that have improved. Review of systems: General: No fever, chills, cold sweats. Cardiovascular: No chest pain, palpitations. Respiratory: No cough, shortness of breath, dyspnea on exertion. Gastrointestinal: No abdominal pain, nausea, vomiting, diarrhea, melena, or hematochezia. Genitourinary: No dysuria, frequency, hematuria. Skin: No rash. Neuro: No headache, numbness, weakness. Physical Examination: Vitals: Stable. Afebrile. General: Well-nourished and well-developed. Head: Normocephalic atraumatic. Neck: Supple, no lymphadenopathy. No JVD. Nontender. Cardiovascular: Regular rate and rhythm. No murmurs. Respiratory: No respiratory distress. Clear to auscultation bilaterally. Abdominal: Soft, nontender, nondistended, normal bowel sounds. No guarding, rebound, or peritoneal signs. Back: Nontender. Extremities: Nontender, no edema. Skin: Normal color, no rash. Neurologic: Alert and oriented ?3. Mild left facial droop. Cranial nerves II through XII are intact otherwise.. Normal strength and sensation. NIH scale is 1. Psych: Normal affect. Test Results: EKG is sinus at 75 with right bundle branch block. This is unchanged from September 2017. CBC is more for monocytes 13. Chem-7 is more facet 125 and chloride of 89. Coags are normal. Troponin is negative. CT head shows chronic changes and no acute disease. Chest x-ray shows chronic changes. Emergency Department Course and Treatment: Patient was treated with aspirin. His symptoms have completely resolved. Upon arrival his NIH scale of was 1 and he was not a TPA candidate. Treatment Plan: Patient was discussed with Dr. Mata. He will be admitted to the hospital for further evaluation and treatment. Disposition: Admitted in improved condition. Impression: 1. Left facial droop, resolved. 2. Near syncope. 3. Hyponatremia on hydrochlorothiazide. This note was generated with [employer] dictation software. It may contain incorrect words, spelling, and punctuation that were not noted in review of the chart prior to signing ED Disposition - Plan for ED Patient: Chief Complaint: Syncope Referrals: Ludin Ramachandran MD [Primary Care Provider] -
--- NOTE | 2018-02-20 21:21 | NURSING ---
Called ED charge nurse, Liz at this time to confirm Pt okay to come to PCU.
--- NOTE | 2018-02-20 22:13 | PCM.HP.STD ---
Problem List (1) Syncope Status: Acute (2) Syncope Status: Acute (3) Syncope and collapse Status: Acute (4) Essential (primary) hypertension Status: Chronic (5) Tobacco pipe smoker Status: Chronic History of Present Illness Date of Admission: 02/20/18 Chief Complaint: Syncope The patient is a 72 year old male w/ h/o HTN admitted for syncope. Pt was recently admitted in September for a stroke workup. Workup at that time was negative. He was sitting outside on his deck after mowing. He sneezed and lost his balance. He was unable to get up on his own. He was a little light headed at that time. His had to get him up. He cannot moved both of his leg and they were weight. After getting into the house, he had a left facial droop and left sided weakness. He had left arm and leg weakness for the next few hours. Weakness improved. Nothing made it better or worse. Weakness was not associated with any other symptoms. Past Medical History Past Medical History (Chronic Problems): Chronic Problems Essential (primary) hypertension (Chronic) Tobacco pipe smoker (Chronic) Allergies No Known Allergies Allergy (Verified 02/20/18 17:25) Home Medications: Ambulatory Orders Medication Instructions Recorded Amlodipine Besylate [Norvasc] 10 mg PO DAILY 09/19/17 Lisinopril/Hydrochlorothiazide 1 each PO QHS 09/19/17 [Zestoretic 20-12.5 mg Tablet] Metoprolol Tartrate [Lopressor 50 mg PO BID 09/19/17 (beta allan)] Nicotine Polacrilex [Nicorette] 4 mg BC PRN PRN 09/19/17 Escitalopram Oxalate [Lexapro] 10 mg PO DAILY 02/20/18 Smoking Status: Current every day smoker - *Family History Maternal History Items: No pertinent history Review of Systems Constitutional: Denies: Chills, Fever, Weight Change HEENT: Denies: Head Aches, Sinus Congestion, Sinus Drainage Cardiovascular: Denies: Chest Pain, Palpitations Respiratory: Denies: Cough, Shortness of breath at rest, Sputum production Gastrointestinal: Denies: Abdominal Pain, Nausea, Vomiting Genitourinary: Denies: Dysuria Musculoskeletal: Denies: Joint Pain, Joint Tenderness Skin: Denies: Rash, Wounds Neurological: Denies: Numbness, Tingling, Focal weakness Psychiatric: Denies: Anxiety, Depression, Homicidal Ideations, Suicidal Ideations Hematologic/ Lymphatic: Denies: Easy Bruising, Easy Bleeding VTE Information - Inpt Only VTE Present on Admission: No VTE Mechan Device Prophylaxis: SCD's VTE Pharm Prophylaxis ordered?: Yes Patient Problems: Active and Suspected Problems Syncope (Acute) - Physical Exam General: Alert, Oriented x3, Cooperative HEENT: Atraumatic, PERRLA, EOMI, Normocephalic Neck: Supple, No JVD, Negative Carotid Bruits Lungs: Clear to auscultation, Normal air movement Cardiovascular: Regular rate, No murmurs Abdomen: Bowel Sounds Present, Soft, Non Tender Extremities: No edema, Capillary Refill Less than 3 Seconds Skin: No rashes, No breakdown Musculoskeletal: No Tenderness to Palpation of Joints or Extremities Neurological: Cranial nerves II-XII grossly intact Psych/Mental Status: Normal Affect, Appropriate Vital Signs Temp Pulse Resp BP Pulse Ox 98.1 F 77 16 158/72 H 94 02/20/18 17:23 02/20/18 19:14 02/20/18 19:14 02/20/18 19:14 02/20/18 19:14 Oxygen Delivery Method Room Air Weight: 71.214 kg Body Mass Index (BMI) 24.5 Finger Stick Blood Glucose 101 Laboratory Tests Past 24 Hrs 02/20/18 02/20/18 02/20/18 17:35 17:35 17:35 WBC 10.5 RBC 4.90 Hgb 15.8 Hct 45.2 MCV 92.2 MCH 32.2 H MCHC 35.0 RDW 12.4 RDW Differential 41.5 Plt Count 261 MPV 8.6 Immature Gran % (Auto) 0.200 Neut % (Auto) 63.1 Lymph % (Auto) 22.0 [place] % (Auto) 13.2 H Eos % (Auto) 1.1 Baso % (Auto) 0.4 Absolute Neuts (auto) 6.6 Absolute Lymphs (auto) 2.30 Total Counted Not Reportable PT 12.7 INR 1.0 APTT 32.3 Sodium 125 L Potassium 3.9 Chloride 89 L Carbon Dioxide 27.0 Anion Gap 9 BUN 7 Creatinine 0.81 Estim Creat Clear Calc 78.20 Est GFR (MDRD) Af Amer 120 Est GFR (MDRD) Non-Af 99 BUN/Creatinine Ratio 8.6 L Glucose 79 Calcium 8.5 Troponin I < 0.015 POC Glucose 02/20/18 17:33 POC Glucose 101 Assessment/Plan All Active Problems Syncope (Acute) Syncope and collapse (Acute) Syncope (Acute) 72 year old male w/ h/o HTN admitted for syncope. 1) Pre-syncope: Pt would not want any further workup. He probably secondary to orthostatic. Will get orthostatic vital. 2) Left sided weakness: Probably TIA. EKG, CT head, and chest xray unremarkable. Trop negative. Resolved. Previous ECHO unremarkable as well. Will get MRI in AM. 3) Hypovolemia hyponatremia: Probably secondary to thiazide. Hydration. Hold thiazide. Monitor.
[2018-02-20 23:33] LABS: Thyroid Stim Hormone (TSH) 1.96 uIU/mL (0.358-3.74)
[2018-02-21] VITALS (13 sets, daily range): BP systolic 130–172; BP diastolic 64–86; PULSE 80–110; RESP 15–19; TEMP 36.7–37.2; O2SAT 94–97; BMI 23.8
[2018-02-21] MEDS: 0.9% Normal Saline 1,000 ML 150 ML IV ×3 (00:43→14:40)
[2018-02-21 04:56] LABS: Absolute Lymphocyte Count 1.72 X10^3/ul (0.83-4.51); Absolute Neutrophil Count 4.9 X10^3/uL (2.0-7.7); Basophil# 0.03 X10^3/uL; Basophil% 0.4 % (0-1); Eosinophil# 0.09 X10^3/uL; Eosinophils% 1.2 % (0-5); Hematocrit 43.1 % (40-54); Hemoglobin 14.9 g/dl (13.0-16.5); Lymphocyte # 1.72 X10^3/ul (4.0); Lymphocyte % 22.1 % (19-41); Mean Corp Hgb Conc 34.6 g/gl (32-36); Mean Corpuscular Hgb 32.5 pg (27.0-32.0); Mean Corpuscular Volume 94.1 fL (80-94); Mean Platelet Vol. 8.3 fl (6.2-12.0); Monocyte# 1.03 X10^3/uL; Monocyte% 13.3 % (0-10); Neutrophil # 4.89 X10^3/uL (2.7-7.7); Neutrophil % 62.9 % (47-70); Platelet Count 225 K/mm3 (150-450); RBC Distribution Width CV 12.7 % (11.6-14.6); RBC Distribution Width SD 43.3 fl (35.1-43.9); Red Blood Count 4.58 M/mm3 (4.6-6.2); White Blood Count 7.8 K/mm3 (4.4-11.0)
[2018-02-21 05:00] LABS: POSITIVE COUNT NO; POSITIVE DIFFERENTIAL NO; POSITIVE MORPHOLOGY NO
[2018-02-21 05:19] LABS: AST(SGOT) 20 U/L (15-37); Alanine Aminotransfer ALT/SGPT 22 U/L (16-61); Albumin, Serum 3.3 g/dL (3.2-5.0); Alkaline Phosphatase 72 U/L (45-117); Anion Gap 9 (5-15); BUN 6 mg/dL (7-18); BUN/Creat Ratio 10.2 RATIO (10-20); Chloride 97 mmol/L (98-107); Cholesterol 149 mg/dL (200); Creatinine, Serum 0.59 mg/dL (0.70-1.30); EST Glomerular Filtration Rate 144 mL/min (>60); Est Glom Filt Rate - Afr Amer 174 mL/min (>60); Estimated Creatinine Clearance 63.35 ml/min; Globulin 3.3 g/dL (2.2-4.2); Glucose 87 mg/dL (74-106); High Density Lipoprotein 73 mg/dL; Potassium 3.7 mmol/L (3.5-5.1); Protein, Total 6.6 g/dL (6.4-8.2); Sodium Level 135 mmol/L (136-145); Triglycerides 59 mg/dL; Very Low Density Lipoprotein 12 mg/dL (5-40)
[2018-02-21] MEDS: Aspirin 81 MG TAB.CHEW PO (08:11)
--- NOTE | 2018-02-21 12:44 | PN_ITS ---
Patient Problems: Active and Suspected Problems Stroke-like symptoms (Acute) Syncope (Acute) Subjective: Patient reports that his strokelike symptoms has resolved. 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 Vitals/I&O's: Vital Signs Temp Pulse Resp BP Pulse Ox 98.5 F 88 19 H 172/83 H 96 02/21/18 11:55 02/21/18 11:55 02/21/18 11:55 02/21/18 11:55 02/21/18 11:55 Oxygen Delivery Method Room Air Weight: 68.9 kg Body Mass Index (BMI) 23.8 Orthostatic Vital Signs Start: 02/21/18 06:22 Freq: q24h Status: Active Protocol: Activity Type Activity Date Activity User E-Sign Co-Sign Detail Recorded Client Recorded Date Recorded By Document 02/21/18 06:22 BMW [id number] 02/21/18 06:22 [employer] 02/21/18 06:22 Orthostatic Vitals Standing -Blood Pressure (90/60-120/80) 130/64 H -Extremity Use Left Arm -Pulse Rate (60-100) 110 H Sitting -Blood Pressure (90/60-120/80) 146/76 H -Extremity Use Left Arm -Pulse Rate (60-100) 104 H Lying -Blood Pressure (90/60-120/80) 151/72 H -Extremity Use Left Arm -Pulse Rate (60-100) 95 Intake and Output for Last 24 Hours 02/19/18 02/20/18 02/21/18 23:59 23:59 23:59 Intake Total 2733 / 2733 Balance 2733 / 2733 General: Alert, Oriented x3, Cooperative HEENT: Atraumatic, PERRLA, EOMI, Normocephalic Neck: Supple, No JVD, Negative Carotid Bruits Lungs: Clear to auscultation, Normal air movement Cardiovascular: Regular rate, No murmurs Abdomen: Bowel Sounds Present, Soft, Non Tender Extremities: No edema, Capillary Refill Less than 3 Seconds Musculoskeletal: No Tenderness to Palpation of Joints or Extremities Neurological: Cranial nerves II-XII grossly intact, - - Strengthening in left lower extremity 4/5. Strength in all other extremities extremities 5/5. Psych/Mental Status: Normal Affect Laboratory Results 02/20/18 23:00: Troponin I < 0.015, TSH 1.96 02/21/18 02:01: Troponin I < 0.015 02/21/18 04:37: WBC 7.8, RBC 4.58 L, Hgb 14.9, Hct 43.1, MCV 94.1 H, MCH 32.5 H , MCHC 34.6, RDW 12.7, RDW Differential 43.3, Plt Count 225, MPV 8.3, Immature Gran % (Auto) 0.100, Neut % (Auto) 62.9, Lymph % (Auto) 22.1, [place] % (Auto) 13.3 H, Eos % (Auto) 1.2, Baso % (Auto) 0.4, Absolute Neuts (auto) 4.9, Absolute Lymphs (auto) 1.72, Total Counted Not Reportable 02/21/18 04:37: Sodium 135 L, Potassium 3.7, Chloride 97 L, Carbon Dioxide 29.0 , Anion Gap 9, BUN 6 L, Creatinine 0.59 L, Estim Creat Clear Calc 63.35, Est GFR (MDRD) Af Amer 174, Est GFR (MDRD) Non-Af 144, BUN/Creatinine Ratio 10.2, Glucose 87, Calcium 8.0 L, Total Bilirubin 1.10 H, AST 20, ALT 22, Alkaline Phosphatase 72, Total Protein 6.6, Albumin 3.3, Globulin 3.3, Albumin/Globulin Ratio 1.0, Triglycerides 59, Cholesterol 149, LDL Cholesterol 64, VLDL Cholesterol 12, HDL Cholesterol 73 02/21/18 04:37: Troponin I < 0.015 Current Medications Aspirin (Aspirin, Baby) 81 mg PO DAILY@0800 [facility] Last Admin: 02/21/18 08:11 Dose: 81 mg Atorvastatin Calcium (Lipitor) 40 mg PO QHS [facility] Sodium Chloride () 500 mls @ 999 mls/hr IV .Q31M ONE Last Admin: 02/20/18 18:47 Dose: 999 mls/hr Sodium Chloride () 1,000 mls @ 150 mls/hr IV .Q6H40M [facility] Last Admin: 02/21/18 07:23 Dose: 150 mls/hr Labetalol HCl (Trandate) 10 mg IV Q4H PRN PRN PRN Reason: SBP Magnesium Hydroxide (Milk Of Magnesia) 30 ml PO DAILY PRN PRN Reason: Constipation Nicotine Polacrilex (Rugby Nicotine (Pbkc)) 4 mg BC PRN PRN PRN Reason: SMOKING CESSATION Medical Necessity - Tobacco Use Smoking Status: Current every day smoker Tobacco Use: Pipe Assessment/Plan All Active Problems Stroke-like symptoms (Acute) Syncope (Acute) Syncope and collapse (Acute) Syncope (Acute) The patient is a 72 year old male w/ h/o HTN, and a previous stroke like symptoms who was admitted for strokelike symptoms; pre-syncope and fall; and also was found to have hyponatremia. Strokelike symptoms of the left side His acute stroke like symptoms has resolved. CT of the head negative MRI head ordered. Permissive hypertension. All blood pressure medication has been discontinued; and labetalol as needed ordered. Aspirin and high intensity statin continued Physical therapy, Occupational Therapy and speech therapy following. Continue NIH scale Lipid panel unremarkable. Smoking cessation was discussed. In September 2017 patient had a similar episode. Patient reported that heart rhythm monitoring for about 1 month was unremarkable. Upon discharge, patient to discuss with PCP for longer term heart rhythm monitoring. Presyncope Likely secondary to neurological dysfunction Echo in September 2017 Resolved Hyponatremia Improved with holding thiazide; and normal saline hydration. Normal Saline discontinued. DVT prophylaxis Ambulation and SCD.
[2018-02-21] MEDS: Atorvastatin Calcium 40 MG Tablet PO (21:35)
[2018-02-22] VITALS (8 sets, daily range): BP systolic 109–159; BP diastolic 70–88; PULSE 80–108; RESP 12–18; TEMP 36.4–36.8; O2SAT 93–96; BMI 23.8
--- NOTE | 2018-02-22 08:00 | MRI_ITS ---
STUDY: MRI BRAIN WITHOUT CONTRAST REASON FOR EXAM: Male, 72 years old. weakness -- sudden onset weakness bilat legs,lt facial droop 02/20/18. TECHNIQUE: Standardized multiplanar fat and water weighted pulse sequences were obtained. COMPARISON: September 20, 2017 FINDINGS: Normal size of the ventricles and extra-axial spaces for the patient's age. There are a limited number of small white matter hyperintensities, distributed throughout the deep white matter tracts of the cerebral hemispheres, consistent with mild chronic white matter ischemic changes. Normal bilateral basal ganglia. Normal thalami. There is no extra-axial fluid accumulation. Normal flow voids within the major intracranial circulation suggesting patency by spin echo criteria. Normal sella turcica, pituitary gland, infundibular stalk, optic chiasm and hypothalamus. Normal tectal plate and pineal gland. There are chronic white matter ischemic changes of the ben. The midbrain and medulla are otherwise normal. Normal cerebellum. Normal basal cisterns. Normal bilateral temporal bones. Normal bilateral internal auditory canals. MRI/Brain without Contrast IMPRESSION: No acute intracranial abnormality. Mild chronic microvascular ischemic changes. Electronically Signed: Warren Stokes MD at 11:30 EDT Tel , Service support ,
[2018-02-22] MEDS: Aspirin 81 MG TAB.CHEW PO (08:13)
--- NOTE | 2018-02-22 13:42 | CASEMGMT ---
RN CM Note: DC PLAN-Home today -Pt is independent, ambulated 350' with PT/OT. No dc needs identified. Vikas ORTEZN RN ACM
--- NOTE | 2018-02-22 14:11 | DCINST_ITS ---
- Discharge Diagnoses Current Active Problems: Current Active and Chronic Problems Stroke-like symptoms (Acute) Syncope (Acute) You will use the following diet at home:: Cardiac, Other - drink more fluids. Your food should be the consistency of: Regular Your liquids should be the consistency of: Regular/Thin Call your doctor if you observe: Fainting spells, Chest pain Allergies/Adverse Reactions: Allergies No Known Allergies Allergy (Verified 02/20/18 17:25) Medications to take at Discharge Metoprolol Tartrate [Lopressor (beta allan)] 50 mg PO BID 09/19/17 Nicotine Polacrilex [Nicorette] 4 mg BC PRN PRN 09/19/17 Escitalopram Oxalate [Lexapro] 10 mg PO DAILY 02/20/18 Amlodipine Besylate [Norvasc] 5 mg PO DAILY #0 02/22/18 Primary Care Physician: Ludin Ramachandran MD [Primary Care Provider] - Within 2 Weeks Test Results: Test results from this visit will be discussed in further detail at your follow- up appointment, if applicable. Proposed Discharge Date: 02/22/18
--- NOTE | 2018-02-22 14:11 | PCM.DC.SUM ---
Discharge Date and Diagnosis - Problem List Patient Problems: Active and Suspected Problems Near syncope (Acute) Syncope (Acute) Date of Admission: 02/20/18 Date of Discharge: 02/22/18 - Primary Discharge Diagnosis Active and Suspected Problems Near syncope (Acute) Stroke-like symptoms (Acute) Syncope (Acute) - Secondary Discharge Diagnosis Chronic Problems Essential (primary) hypertension (Chronic) Tobacco pipe smoker (Chronic) Hospital Course and Treatment Imaging Results: 02/22/18 08:00 Brain without Contrast [MRI] Routine Clinical Impression(s) from Imaging Studies Brain CT 02/20/18 17:46 IMPRESSION: Chronic involutional changes of the brain. There are no acute findings. Electronically Signed: Mateo Juarez MD at 18:43 EDT , Service support , Chest X-Ray 02/20/18 18:32 IMPRESSION: There are no acute findings. Electronically Signed: Mateo Juarez MD at 18:54 EDT , Service support , Brain MRI 02/22/18 08:00 IMPRESSION: No acute intracranial abnormality. Mild chronic microvascular ischemic changes. Electronically Signed: Warren Stokes MD at 11:30 EDT Tel , Service support , Operations: None Procedures: None Summary of Care Provided: The patient is a 72 year old M presents with generally just feeling weak. There is concern for left-sided weakness as well. Patient was noted to have left-sided facial droop as well as weakness in his left upper extremity. Patient is right-handed dominant. But the big issue is patient just very weak in his legs. The course of events was patient just got a lawnmower on the seventh when out and mowed his lawn for 4 hours and while mowing his lawn had a couple of beers. Patient did not have any other fluids during that time. Patient did was able to put his lawnmower back in the garage and then was able to blow off his patio with a leaf blower. Patient got in chair then had several episodes of sneezing then afterwards patient just became very weak and was reported as weight. Patient was then brought in and evaluated. Patient had no residual left-sided S that was appreciated. Patient had an MRI of his brain showed no acute stroke. Patient had lab work that showed a sodium of 125. Patient had a near syncopal events as he never lost consciousness. The patient did not have a stroke. Is my feeling the patient had a near syncopal event due to a combination of multiple factors: 1 is being dehydration. Patient states that he drinks some alcohol but did not really drink any other fluids, next is his antihypertensives. And with that have recommended his Norvasc be dropped from 10-5 mg daily and for the patient to discontinue his lisinopril/hydrochlorothiazide. The lisinopril could be reintroduced at a later time but I would not recommend patient going back on hydrochlorothiazide given hyponatremia which has improved. Patient is on metoprolol for unclear reasons. Would defer to his primary care doctor for any indication to continue with this medication. Would not abruptly discontinue but would rather taper that off over couple weeks. It was also noted the patient did have some orthostatic hypotension. Unclear the circumstances with but would request that be assessed as outpatient C patient still does have ongoing orthostatic hypotension and if so may be further modifications of his antihypertensives and that did not yield any results and perhaps evaluation for adrenal insufficiency. On physical exam patient is no acute distress and afebrile. Heart is regular rate and rhythm plus S1-S2 with a murmurs gallops or rubs. Lungs are clear to auscultation bilaterally. Neck had no bruits auscultated. Case discussed with patient and his at length at bedside. All questions were answered. They were in agreement with the current plan. [] Discharge Diet: No Restrictions Discharge Activity: Return to Normal Activity Call your doctor if you observe: Fainting spells, Chest pain Home Medications: Medications to take at Discharge Metoprolol Tartrate [Lopressor (beta allan)] 50 mg PO BID 09/19/17 Nicotine Polacrilex [Nicorette] 4 mg BC PRN PRN 09/19/17 Escitalopram Oxalate [Lexapro] 10 mg PO DAILY 02/20/18 Amlodipine Besylate [Norvasc] 5 mg PO DAILY #0 02/22/18 Primary Care Physician: Ludin Ramachandran MD [Primary Care Provider] - Within 2 Weeks Disposition: Home Minutes spent on discharge:: 35 Patient Condition:: Good Medical Necessity - Tobacco Use Smoking Status: Current every day smoker Tobacco Use: Pipe Meaningful Use Info Meaningful Use Diagnoses (Choose all that apply): None applicable Code Visit Inpatient E&M: 12162 Disch Hosp
--- NOTE | 2018-02-22 14:17 | DS.PCM_ITS ---
Discharge Date and Diagnosis - Problem List Patient Problems: Active and Suspected Problems Near syncope (Acute) Syncope (Acute) Date of Admission: 02/20/18 Date of Discharge: 02/22/18 - Primary Discharge Diagnosis Active and Suspected Problems Near syncope (Acute) Stroke-like symptoms (Acute) Syncope (Acute) - Secondary Discharge Diagnosis Chronic Problems Essential (primary) hypertension (Chronic) Tobacco pipe smoker (Chronic) Hospital Course and Treatment Imaging Results: 02/22/18 08:00 Brain without Contrast [MRI] Routine Clinical Impression(s) from Imaging Studies Brain CT 02/20/18 17:46 IMPRESSION: Chronic involutional changes of the brain. There are no acute findings. Electronically Signed: Mateo Juarez MD at 18:43 EDT , Service support , Chest X-Ray 02/20/18 18:32 IMPRESSION: There are no acute findings. Electronically Signed: Maeto Juarez MD at 18:54 EDT , Service support , Brain MRI 02/22/18 08:00 IMPRESSION: No acute intracranial abnormality. Mild chronic microvascular ischemic changes. Electronically Signed: Warren Stokes MD at 11:30 EDT Tel , Service support , Operations: None Procedures: None Summary of Care Provided: The patient is a 72 year old M presents with generally just feeling weak. There is concern for left-sided weakness as well. Patient was noted to have left-sided facial droop as well as weakness in his left upper extremity. Patient is right-handed dominant. But the big issue is patient just very weak in his legs. The course of events was patient just got a lawnmower on the seventh when out and mowed his lawn for 4 hours and while mowing his lawn had a couple of beers. Patient did not have any other fluids during that time. Patient did was able to put his lawnmower back in the garage and then was able to blow off his patio with a leaf blower. Patient got in chair then had several episodes of sneezing then afterwards patient just became very weak and was reported as weight. Patient was then brought in and evaluated. Patient had no residual left-sided S that was appreciated. Patient had an MRI of his brain showed no acute stroke. Patient had lab work that showed a sodium of 125. Patient had a near syncopal events as he never lost consciousness. The patient did not have a stroke. Is my feeling the patient had a near syncopal event due to a combination of multiple factors: 1 is being dehydration. Patient states that he drinks some alcohol but did not really drink any other fluids, next is his antihypertensives. And with that have recommended his Norvasc be dropped from 10-5 mg daily and for the patient to discontinue his lisinopril/hydrochlorothiazide. The lisinopril could be reintroduced at a later time but I would not recommend patient going back on hydrochlorothiazide given hyponatremia which has improved. Patient is on metoprolol for unclear reasons. Would defer to his primary care doctor for any indication to continue with this medication. Would not abruptly discontinue but would rather taper that off over couple weeks. It was also noted the patient did have some orthostatic hypotension. Unclear the circumstances with but would request that be assessed as outpatient C patient still does have ongoing orthostatic hypotension and if so may be further modifications of his antihypertensives and that did not yield any results and perhaps evaluation for adrenal insufficiency. On physical exam patient is no acute distress and afebrile. Heart is regular rate and rhythm plus S1-S2 with a murmurs gallops or rubs. Lungs are clear to auscultation bilaterally. Neck had no bruits auscultated. Case discussed with patient and his at length at bedside. All questions were answered. They were in agreement with the current plan. [] Discharge Diet: No Restrictions Discharge Activity: Return to Normal Activity Call your doctor if you observe: Fainting spells, Chest pain Home Medications: Medications to take at Discharge Metoprolol Tartrate [Lopressor (beta allan)] 50 mg PO BID 09/19/17 Nicotine Polacrilex [Nicorette] 4 mg BC PRN PRN 09/19/17 Escitalopram Oxalate [Lexapro] 10 mg PO DAILY 02/20/18 Amlodipine Besylate [Norvasc] 5 mg PO DAILY #0 02/22/18 Primary Care Physician: Ludin Ramachandran MD [Primary Care Provider] - Within 2 Weeks Disposition: Home Minutes spent on discharge:: 35 Patient Condition:: Good Medical Necessity - Tobacco Use Smoking Status: Current every day smoker Tobacco Use: Pipe Meaningful Use Info Meaningful Use Diagnoses (Choose all that apply): None applicable Code Visit Inpatient E&M: 50997 Disch Hosp
== END 2018-02-22 14:11 | disposition home or self-care (01) ==
LOC: ED 19:58 → PCU 22:24
PROVIDERS: Admitting Provider Internal Medicine; Emergency Provider Emergency Medicine; Family Provider Family Medicine; PCP Family Medicine
DX: I95.1 Orthostatic hypotension (principal); I10 Essential (primary) hypertension; F17.290 Nicotine dependence, other tobacco product, uncomplicated; R29.810 Facial weakness; R20.2 Paresthesia of skin; E87.1 Hypo-osmolality and hyponatremia; I45.10 Unspecified right bundle-branch block; R53.1 Weakness; Z79.899 Other long term (current) drug therapy
CPT/HCPCS: 36415; 70450; 70551; 71045; 80048; 80053; 80061; 82962; 84443; 84484; 85025; 85610; 85730; 92523; 93005; 96360; 96361; 97161; 97165; 99218; 99284; 99406; J7030; J7040; A4216; G0378; G8978; G8979; G8980; G8987; G8988; G8989; G8996; G8998; G9159; G9161

== ENCOUNTER → 2018-04-26 13:09 | Outpatient (CLI) | payer BC, MEDICARE, SELFPAY ==
[2015-08-22 10:33] VITALS: BMI 24.0
--- NOTE | 2018-04-26 13:11 | CT_ITS ---
STUDY: CT BRAIN WITHOUT CONTRAST REASON FOR EXAM: Male, 73 years old. RT MCA CVA, F/U SCAN, SYNCOPAL EPISODES, HTN RADIATION DOSAGE (If Supplied By Facility): CTDIvol = ( 60.81 ) mGy, DLP = ( 1044.28 ) mGycm Individualized dose optimization techniques were used for this CT. TECHNIQUE: Transaxial CT imaging of the brain was performed without administration of intravenous contrast material. COMPARISON: 7.7.18 FINDINGS: Normal soft tissue structures. Normal calvarium. There are calcifications around the carotid artery. These are noted in the cavernous carotid arteries. There is mild cerebral atrophy with widening of the extra-axial spaces and ventricular dilatation. There are areas of decreased attenuation within the white matter tracts of the supratentorial brain, consistent with microvascular disease changes. Normal basal ganglia and thalami. Normal brainstem. There is mild cerebellar atrophy. There is no intracranial hemorrhage. There are no findings of an acute ischemic infarction. Normal visualized paranasal sinuses. CT/Brain/Head without Contrast IMPRESSION: Chronic involutional changes of the brain. There are no acute findings. Electronically Signed: Mateo Juarez MD at 17:19 EDT , Service support ,
== END ==
PROVIDERS: Family Provider Family Medicine; PCP Family Medicine; Visit Provider Nurse Practitioner Acute Care
DX: R55 Syncope and collapse (principal); Z86.73 Personal history of transient ischemic attack (TIA), and cerebral infarction without residual deficits
CPT/HCPCS: 70450

== ENCOUNTER → 2019-03-30 11:11 | Outpatient (CLI) | payer BC, MEDICARE, SELFPAY ==
[2019-03-30 11:11] VITALS: BMI 24.0
[2019-03-30 12:21] LABS: Hematocrit 45.4 % (40-54); Hemoglobin 15.2 g/dL (13.0-16.5); Mean Corp Hgb Conc 33.5 g/dL (32-36); Mean Corpuscular Hgb 32.2 pg (27.0-32.0); Mean Corpuscular Volume 96.2 fL (80-94); Mean Platelet Vol. 8.8 fl (6.2-12.0); Platelet Count 299 K/mm3 (150-450); RBC Distribution Width CV 12.5 % (11.6-14.6); RBC Distribution Width SD 44.6 fl (35.1-43.9); Red Blood Count 4.72 M/mm3 (4.6-6.2); White Blood Count 7.3 K/mm3 (4.4-11.0)
[2019-03-30 12:49] LABS: Iron 97 ug/dL (65-175)
== END ==
PROVIDERS: Family Provider Family Medicine; PCP Family Medicine; Referring Provider Internal Medicine Gastroenterology; Visit Provider Internal Medicine Gastroenterology
DX: K92.2 Gastrointestinal hemorrhage, unspecified (principal); D64.9 Anemia, unspecified
CPT/HCPCS: 36415; 83540; 85027